=== PATIENT | male | born 1960 | race Caucasian/White ===

== ENCOUNTER 2023-12-05 14:26 | Inpatient (IN) | payer MEDICARE, BC, SELFPAY ==
[2023-12-04 12:36] VITALS: BP 128/57
[2023-12-04 13:21] LABS: COVID-19 Antigen Positive (Negative)
[2023-12-04 15:00] VITALS: BP 179/77
--- NOTE | 2023-12-04 15:21 | ED.GENMED ---
History of Present Illness
General
Chief Complaint: Fatigue
Source: patient
Exam Limitations: none
Time Seen by Provider: 12/04/23 14:53
Nursing documentation reviewed up to this point in time: agreed with
Travel History
Have you had any contact with someone who has COVID-19?: No
Do you have any symptoms of coronavirus? Fever > 100 degrees, chills, cough, shortness of breath, sore throat, loss of taste or smell, muscle aches, or headache?: Yes
Symptoms:: bodyaches
History of Present Illness
History of Present Illness:
Patient is a 63-year-old male with a history of CAD, CVA, hypopituitarism, gastric varices
Here for generalized fatigue, sore throat, cough, fatigue and weakness for the last 2 days. Patient did not take his temperature. He was unaware he had COVID-19 until coming in to the emergency department today. Patient is vaccinated. He says
that after a few times he coughed he brought up a little bit of blood-tinged emesis, it was not hemoptysis. Patient feels extremely weak currently. He has a little bit of shortness of breath but most of his pain is in his throat. He did not take
any Tylenol or ibuprofen. He says that sometimes Tylenol gives him problems. He cannot take NSAIDs because of his stomach
Past History
Past History
ED Past Medical History: CAD, CVA (TIA), HTN, Hypercholesterolemia, [place], Seizures (History of from Hypoglycemia), Hypothyroidism and Other (Sciatica, Cellulitis, Rectal bleeding, Bowel obstruction, Vertigo,)
ED Past Surgical History: Cardiac (Stents X 1) and Other (Partial removal of Pancreas)
Social History
Tobacco: 2nd hand smoke exposure
Alcohol: None
Personal: Single
Living: with family
Employment: Disabled
Family History
Family History: Other
Review of Systems
Review of Systems
Allergies reviewed?: Yes
All Other Systems: Not applicable
Phy Exam
Physical Exam
Physical Exam:
GENERAL: Alert, very fatigued, needed assistance sitting up in bed
EYE: pupils equal and reactive
NECK: Supple
ENT: b/l TM s clear, pharynx erythematous but no tonsillar hypertrophy or exudates
CARDIAC: Regular rate and rhythm, no edema
LUNGS: Occasional cough, no respiratory distress, some end expiratory wheezing bilaterally as well as mild rhonchi,
ABDOMEN: Soft, without focal tenderness, no r/g, no cvat, normal bowel sounds
NEUROLOGICAL: Alert and oriented, no focal neuro deficits but extremely weak
SKIN: Warm and dry, skin intact.
MUSCULOSKELETAL: No edema, well perfused.
PSYCH: Normal and appropriate interaction.
Course
Orders/Labs/Results
Orders:
Orders
12/04/23 12:39
Electrocardiogram (*1) Urgent
Reason for Study: Fatigue / Weakness
EKG- Treatment ONCE
12/04/23 12:55
COVID-19 Antigen Urgent
Source: Nasal Swab
Influenza A+B Rapid Molecular Urgent
SONIA Source: Nasal Swab
Specimen Description:
12/04/23 14:47
Complete Blood Count/With Diff Urgent
Comprehensive Metabolic Panel Urgent
12/04/23 15:44
0.9% Sodium Chloride 500 ml [Nss] 500 ml IV BOLUS
Acetaminophen [Tylenol] 650 mg PO NOW STA
12/04/23 15:46
Dexamethasone Sod Phosphate [Decadron] 10 mg IV NOW STA
CR Chest - 2 Views Urgent
Comment:
Reason For Exam: fever, covid
Abnormal Lab Results
12/04/23 12/04/23
12:55 14:47
RBC 3.97 L 10^6/uL
(4.70-6.10)
Hct 37.9 L %
(39.0-52.0)
MCV 95.5 H fL
(80.0-94.0)
MCH 34.0 H pg
(27.0-31.0)
RDW 11.4 L %
(11.5-14.5)
Absolute Neuts (auto) 7.0 H 10^3/uL
(1.4-6.5)
Absolute Lymphs (auto) 0.7 L 10^3/uL
(1.2-3.4)
Absolute Monos (auto) 0.7 H 10^3/uL
(0.1-0.6)
Neutrophils % 82.4 H %
(42.2-75.2)
Lymphocytes % 8.7 L %
(20.5-51.1)
Sodium 134 L mmol/L
(135-145)
BUN 22 H mg/dl
(9-20)
SARS-CoV-2 Antigen Positive A
(Negative)
12/04/23 14:47
12/04/23 14:47
Vital Signs
Initial and Last Documented VS:
Initial Vital Signs
Temp Pulse Resp BP Pulse Ox
98.0 F 62 16 128/57 97
12/04/23 12:36 12/04/23 12:36 12/04/23 12:36 12/04/23 12:36 12/04/23 12:36
Last Documented Vital Signs
Temp Pulse Resp BP Pulse Ox
98.0 F 78 18 189/71 97
12/04/23 12:36 12/04/23 16:15 12/04/23 16:15 12/04/23 16:00 12/04/23 12:36
MDM/Problems Addressed
Differential Diagnosis Includes:
COVID-19, influenza, dehydration, pneumonia
MDM/Problems Addressed:
63-year-old male coming from independent living, history of CAD, hypopituitarism, epilepsy, stroke, gastric varices presents for COVID symptoms. He has sore throat, cough, mild blood-tinged emesis after retching
Patient was found to be initially afebrile and normotensive, for me he is febrile 103.5 and very fatigued. He is nonfocal, needed assistance just lifting himself up in bed
Has some mild rhonchi and wheezing in his lungs but normal O2 sat not requiring oxygen support. Considered IV steroids however patient with his varices history is more high risk for GI bleeding.
Given his extreme fatigue, that he lives alone I do not feel that it is safe to discharge him. Will admit
*Critical Care Note
Total Time (30-74mins, 75-104mins- exclusive of procedures): Not Applicable
ED Attending Note
-
Portions of this chart may have been created with voice recognition software.� Occasional wrong word or��sound alike� substitutions may have occurred due to the inherent limitations of voice recognition software.
Discharge Plan
Departure
Patient Disposition: Admit
Date of Disposition: 12/04/23
Time of Disposition: 16:24
Admit to: Med/Surg
Presentation/result/management discussed w/ accepting MD/DO: Hospitalist
Patient with high blood pressure during this ER visit?: No
Condition: Fair
Covid-19: Not Applicable
Discharge Problem:
COVID-19, Weakness
Prescriptions:
No Action
aspirin 81 MG tablet,chewable
81 mg PO DAILY@1200
levothyroxine 200 MCG tablet
200 mcg PO MOTUWETHFR
levothyroxine 200 MCG tablet
400 mcg PO SUSA
atenolol 25 MG tablet
25 mg PO HS
amlodipine 10 MG tablet
10 mg PO HS
hydrocortisone 10 MG tablet
20 mg PO DAILY
testosterone cypionate 200 MG/ML oil
0.25 ml IM Q2W
calcium carbonate-vitamin D3 [Oyster Shell Calcium-Vit D3] 500 MG tablet
1 tab PO BID@1400,2000
phenobarbital 64.8 MG tablet
129.6 mg PO HS
Patient Comments:
patient picked up on
clopidogrel 75 MG tablet
75 mg PO DAILY Qty: 30 5RF
nitroglycerin 0.4 MG tablet, sublingual
0.4 mg sublingual [id number] PRN (Reason: chest pain) Qty: 25 5RF
pantoprazole 40 MG tablet,delayed release (DR/EC)
40 mg PO DAILY
sodium chloride 1 GM tablet
0.5 tab PO BID
guar gum 1 PKT packet
1 tsp PO DAILY
furosemide 20 MG tablet
20 mg PO DAILY
folic acid-vit B6-vit B12 [Folbic] 1 EACH tablet
1 tab PO DAILY@1400
rosuvastatin 10 MG tablet
10 mg PO DAILY
carbamazepine [Tegretol XR] 200 MG tablet extended release 12 hr
400 mg PO BID
carbamazepine 100 MG capsule, ER multiphase 12 hr
100 mg PO BID
Referrals:
Jean Carlos Frazier MD [Family Provider] -
Interventions
Interventions:
*ED COVID-19 Vaccine History Last Done: 12/04/23 12:36
[2023-12-04 15:41] LABS: % Basophils 0.4 % (0-2); % Eosinophils 0.1 % (0-6); % Immature Granulocytes 0.4 % (0-0.5); % Lymphocytes 8.7 % (20.5-51.1); % Neutrophils 82.4 % (42.2-75.2); Absolute Lymphocytes 0.7 10^3/uL (1.2-3.4); Absolute Monocytes 0.7 10^3/uL (0.1-0.6); Hematocrit 37.9 % (39.0-52.0); Hemoglobin 13.5 g/dL (13.0-18.0); Mean Corp Hgb Conc. 35.6 g/dL (33.0-37.0); Mean Corpuscular Volume 95.5 fL (80.0-94.0); Mean Platelet Volume 9.4 fL (7.4-10.4); Nucleated Red Blood Cells % 0 % (-); Platelet Count 148 10^3/uL (130-400); Red Blood Cell Count 3.97 10^6/uL (4.70-6.10); Red Cell Dist. Width 11.4 % (11.5-14.5); White Blood Cell Count 8.5 10^3/uL (4.8-10.8)
[2023-12-04 16:00] VITALS: BP 189/71
[2023-12-04 16:09] LABS: ALT (SGPT) 33 U/L (0-50); AST (SGOT) 50 U/L (17-59); Albumin 4.3 g/dl (3.5-5.0); Alkaline Phosphatase 106 U/L (38-126); Blood Urea Nitrogen 22 mg/dl (9-20); Calcium 8.5 mg/dl (8.4-10.2); Carbon Dioxide 29 mmol/L (22-30); Chloride 102 mmol/L (98-107); Glucose 82 mg/dl (70-99); Potassium 4.3 mmol/L (3.5-5.1); Sodium 134 mmol/L (135-145); Total Bilirubin 0.7 mg/dl (0.2-1.3); Total Protein 7.3 g/dl (6.3-8.2); eGFR > 60.00
[2023-12-04] MEDS: TYLENOL 650 MG PO ×2 (16:16→23:20)
[2023-12-04] MEDS: NSS 500 IV (16:17)
--- NOTE | 2023-12-04 18:13 | HPS.HSE ---
Addendum entered and electronically signed by Nico Garcia MD 12/04/23 18:22:
Patient did have Fever of 103.5. Check blood cultures and continue IVF.
Original Note:
Family Physician
-
Family Physician: Jean Carlos Frazier
Chief Complaint
-
sore throat
History of Present Illness
63-year-old male with past medical history of CAD status post stent, CVA, hypopituitarism, gastric varices, hypertension, hypercholesterolemia, seizure secondary to hypoglycemia, hypothyroidism, sciatica, bowel obstruction, partial removal of
pancreas, presenting from [facility] with generalized fatigue, sore throat, cough and shortness of breath, fatigue and weakness for the past 2 days. A few times after he coughed he brought up a little blood-tinged sputum. His main complaint is he
has a severe sore throat and he has a lot of irritation of the throat when he tries to eat solids or liquids and it comes up after eating. This only started with his other symptoms. He denies food getting stuck in his throat. He denies any
vomiting. He denies any abdominal pain or diarrhea. He denies any fevers or chills. Denies any chest pain.
He did receive COVID vaccines
Denies smoking or alcohol.
Medical History
Past Medical History
Past Medical History: Reports Other ( CAD status post stent, CVA, hypopituitarism, gastric varices, hypertension, hypercholesterolemia, seizure secondary to hypoglycemia, hypothyroidism, sciatica, bowel obstruction, partial removal of pancreas,)
Past Surgical History: Reports None
Social History
Tobacco: Non-smoker
Alcohol: None
Drug: None
Family History
Family History: Not pertinent
Allergies / Home Medications
Allergies reflects when Allergies were last updated in [facility].
Home Medications with original date entered in [facility]
Allergy/Medication List:
Allergies
Allergy/AdvReac Type Severity Reaction Status Date / Time
acetaminophen Allergy hallucinati Verified 12/04/23 12:38
[From Tylenol PM] ons
amoxicillin [Amoxicillin] Allergy nightmares Verified 12/04/23 12:38
cephalexin monohydrate Allergy 'unspecified Verified 12/04/23 12:38
[From Keflex] side
effects'
cyclobenzaprine Allergy Unknown Verified 12/04/23 12:38
[Cyclobenzaprine]
diphenhydramine HCl Allergy hallucinati Verified 12/04/23 12:38
[From Tylenol PM] ons
erythromycin base Allergy 'does not Verified 12/04/23 12:38
[Erythromycin Base] mix with
tegretol'
metformin Allergy Unknown Verified 12/04/23 12:38
methylprednisolone Allergy dizziness? Verified 12/04/23 12:38
naproxen [From Aleve] Allergy Unknown Verified 12/04/23 12:38
sertraline Allergy Unknown Verified 12/04/23 12:38
Blwziwp-ZFC-ZpK Reductase Allergy Unknown Verified 12/04/23 12:38
Inhibitor
[Vgqdgnx-Rvb-Wez Reductase
Inhibitor]
Tetracyclines Allergy nightmares Verified 12/04/23 12:38
Home Medications
levothyroxine 200 mcg tablet 200 mcg PO DAILY Thyroid 02/19/15
amlodipine 10 mg tablet 10 mg PO HS Blood pressure 09/28/18
atenolol 25 mg tablet 25 mg PO HS Blood pressure 09/28/18
calcium carbonate 500 mg-vitamin D3 5 mcg (200 unit) tablet (Oyster Shell Calcium-Vitamin D3) 1 tab PO BID Supplement 03/18/20
hydrocortisone 10 mg tablet 20 mg PO DAILY ADRENAL INSUFFICIENCY 03/18/20
testosterone cypionate 200 mg/mL intramuscular oil 0.25 ml IM Q2W LOW TESTOSTERONE 03/18/20
phenobarbital 64.8 mg tablet 129.6 mg PO HS Seizures 10/03/20
clopidogrel 75 mg tablet 75 mg PO DAILY #30 tabs 10/05/20
nitroglycerin 0.4 mg sublingual tablet 0.4 mg sublingual [id number] PRN chest pain #25 tabs 10/05/20
pantoprazole 40 mg tablet,delayed release 40 mg PO DAILY Gastrointestinal issue 10/26/20
folic acid-vit B6-vit B12 2.5 mg-25 mg-2 mg tablet (Folbic) 1 tab PO DAILY Supplement 12/21/20
guar gum 1 tsp PO DAILY Supplement 12/21/20
carbamazepine 100 mg tablet,extended release,12 hr (Tegretol XR) 100 mg PO QPM 12/04/23
carbamazepine 100 mg tablet,extended release,12 hr (Tegretol XR) 200 mg PO DAILY 12/04/23
carbamazepine 400 mg tablet,extended release,12 hr (Tegretol XR) 400 mg PO BID@0800,1700 12/04/23
lisinopril 10 mg tablet 10 mg PO BID 12/04/23
rosuvastatin 40 mg tablet 40 mg PO DAILY 12/04/23
Review of Systems
-
History Source: Patient
A 12 point ROS was completed and negative except as noted: Yes
Constitutional: Reports No Symptoms
EENT: Reports No Symptoms
Respiratory: Reports See HPI
Cardiac: Reports No Symptoms
Abdomen/GI: Reports No Symptoms
: Reports No Symptoms
Musculoskeletal: Reports No Symptoms
Skin: Reports No Symptoms
Neurological: Reports No Symptoms
Endocrine: Reports No Symptoms
Hematologic/Lymphatic: Reports No Symptoms
Psych: Reports No Symptoms
Physical Exam
Vital Signs
Vital Signs
Temp Pulse Resp BP Pulse Ox
98.0 F 81 19 189/71 97
12/04/23 12:36 12/04/23 16:30 12/04/23 16:30 12/04/23 16:00 12/04/23 12:36
Physical Exam
General: Well Developed, Well Nourished and No Apparent Distress
HEENT: Other (erythematous throat )
Respiratory: Clear
Cardiac: S1/S2 and Regular Rhythm; No Murmur or Rub
GI: Soft, Non Tender, Non Distended and Normal Bowel Sounds; No Organomegaly
Rectal: Deferred by Provider
Musculoskeletal: No Clubbing, No Cyanosis and No Edema
Skin: No Rash
Neuro: Nonfocal/grossly intact
Laboratory Results
-
12/04/23 14:47
12/04/23 14:47
Laboratory Results
Total Bilirubin 0.7 mg/dl (0.2-1.3) 12/04/23 14:47
AST 50 U/L (17-59) 12/04/23 14:47
ALT 33 U/L (0-50) 12/04/23 14:47
Alkaline Phosphatase 106 U/L (38-126) 12/04/23 14:47
Data Reviewed
-
Lab Data: Labs Reviewed by me
Old Records: Reviewed
Impression/Plan
-
IMPRESSION:
PLAN:
# COVID infection, day 3 of symptoms
-not hypoxic, with slight hemoptysis secondary to cough
-COVID-positive, influenza negative
-Chest x-ray negative
-Tylenol
-Guaifenesin
-PT/OT
# Dysphagia secondary to pharyngitis from COVID
-Cepacol for sore throat
-Consider speech and swallow if no improvement
CAD status post stent
-Continue Plavix
History of CVA
-Continue Plavix, statin
Essential hypertension
-Continue amlodipine, atenolol, lisinopril
Hypercholesterolemia
Hypopituitarism
-Continue hydrocortisone
-Patient on testosterone injections
Hypothyroidism
-Continue levothyroxine
History of gastric varices
History of seizure secondary to hypoglycemia
-Continue carbamazepine, phenobarbital
Sciatica
History of bowel obstruction
Partial removal of pancreas
GERD
-Continue Protonix
Full code
DVT prophylaxis�heparin
Regular diet
--- NOTE | 2023-12-04 19:30 | PTCARENOTE ---
Received pt from ED. Pt ambulated to bed with x1 assist. Pt temp of 100.3, VSS. AAOx3, answered all admission questions. Reports no pain. See assessment. Pt has no complaints at this time. Resting comfortably with call somers within reach.
[2023-12-04 19:43] VITALS: BP 121/61; BMI 25.6
[2023-12-04] MEDS: HEPARIN 5000 UNITS SC (20:12)
[2023-12-04] MEDS: NSS 1000 IV (20:12)
[2023-12-04] MEDS: ZESTRIL 10 MG PO (20:13)
[2023-12-04] MEDS: OSCAL 500 + D 500 MG PO (20:13)
[2023-12-04] MEDS: MUCINEX 600 MG PO (20:13)
[2023-12-04] MEDS: TEGRETOL XR (EXTENDED RELEASE) 400 MG PO (21:03)
[2023-12-04] MEDS: LUMINAL 129.599999999999994 MG PO (22:13)
[2023-12-04] MEDS: NORVASC 10 MG PO (22:13)
[2023-12-04] MEDS: TENORMIN 25 MG PO (22:13)
[2023-12-04] MEDS: TEGRETOL XR (EXTENDED RELEASE) 100 MG PO (22:13)
[2023-12-04] MEDS: ANESTHETIC LOZENGE 1 LOZENGE PO (23:18)
[2023-12-04 23:28] VITALS: BP 152/69
[2023-12-04] MEDS: PEPCID 40 MG PO (23:47)
--- NOTE | 2023-12-04 23:57 | PTCARENOTE ---
Pt complaining of chest pain. Patient states feels like 'pressure' in center of chest that is not continuous. [employer] notified and came to bedside. Famotidine 40 mg PO ordered and given.
[2023-12-05] VITALS (24 sets, daily range): BP systolic 104–181; BP diastolic 44–139; BMI 23.6
--- NOTE | 2023-12-05 03:10 | W.PN.UPDATE ---
Update Note
Progress Note Update
Patient complained of chest pain to RN. Upon evaluation by RAFTER CUTTING MACHINE OPERATOR, patient stated pain is at mid epigastric area. Denies any pain at chest area, or shortness of breath at present. Famotidine given. Patient is Covid Positive.
At 0210, RN notified RAFTER CUTTING MACHINE OPERATOR, patient with high fever Temp of 102.6 temporal, 101.5 Axillary. Ordered Tylenol 1000mg PO once. RN stated Temp of 102.9 Oral, 104 Rectally one hour later, BP 109/44 dropped from 150's SBP, 71, 16 94% RA. Patient denies any
chest pain or SOB, reports Nausea, Vomiting and Diarrhea. IV Compazine given once, Cooling blanket ordered, will add procalcitonin, lactic acid to the labs to be done now. Ordered UA.
lab result noted: WBC 11.0, lactic acid 1.2, procalcitonin 0.75;
BP at 0600; 102.4, 138/50, HR 69, 95% Ra, 16 RR
corrected Ca low 5.4, Calcium gluconate given.
Will order stat chest Xray, UA pending, Blood culture pending, will transfer patient to IMU for possible Sepsis
Continue Vancomycin IV
ID Consult.
[2023-12-05] MEDS: TYLENOL 1000 MG PO (03:13)
[2023-12-05] MEDS: COMPAZINE 5 MG IV (04:38)
[2023-12-05 04:52] LABS: % Basophils 0.4 % (0-2); % Immature Granulocytes 0.4 % (0-0.5); % Monocytes 4.4 % (1.7-9.3); % Neutrophils 88.8 % (42.2-75.2); Absolute Lymphocytes 0.7 10^3/uL (1.2-3.4); Absolute Monocytes 0.5 10^3/uL (0.1-0.6); Absolute Neutrophils 9.8 10^3/uL (1.4-6.5); Hematocrit 35.7 % (39.0-52.0); Hemoglobin 12.7 g/dL (13.0-18.0); Mean Corp Hgb Conc. 35.6 g/dL (33.0-37.0); Mean Corpuscular Hgb 33.1 pg (27.0-31.0); Mean Platelet Volume 9.2 fL (7.4-10.4); Nucleated Red Blood Cells % 0 % (-); Platelet Count 144 10^3/uL (130-400); Red Blood Cell Count 3.84 10^6/uL (4.70-6.10); Red Cell Dist. Width 11.3 % (11.5-14.5)
--- NOTE | 2023-12-05 04:54 | PTCARENOTE ---
Patient having above 102 temperature since 2300. Gave PRN Tylenol at 2320. Recheck an hour later, 102.6 orally. Put ice packs under patients arms and in between legs. Recheck, 102.3 oral. 101.5 axillary. Notified BULLET ASSEMBLY PRESS OPERATOR, 1000 mg Tylenol ordered and
given. See MAR. Recheck of temperature still above 102 orally. 104.8 Rectal temperature. BULLET ASSEMBLY PRESS OPERATOR notified, cooling blanket ordered and administered. Patient has moist, occasional cough, nausea, vomiting, and had an episode of diarrhea. Compazine 5mg IV
ordered and given. See MAR. Patient states overall malaise and weakness. Patient sleeping with cooling blanket in place. Call somers within reach, safe environment maintained.
[2023-12-05 05:16] LABS: ALT (SGPT) 48 U/L (0-50); AST (SGOT) 86 U/L (17-59); Albumin 3.6 g/dl (3.5-5.0); Alkaline Phosphatase 104 U/L (38-126); Blood Urea Nitrogen 21 mg/dl (9-20); Carbon Dioxide 23 mmol/L (22-30); Chloride 106 mmol/L (98-107); Estimated Creatinine Clearance 60 ml/min; Glucose 85 mg/dl (70-99); Lactic Acid 1.2 mmol/L (0.7-2.0); Sodium 135 mmol/L (135-145); Total Protein 6.6 g/dl (6.3-8.2); eGFR > 60.00
[2023-12-05 05:23] LABS: Procalcitonin 0.75 ng/ml (0.0-0.25)
[2023-12-05] MEDS: SYNTHROID PO ×2 (05:54→06:06)
[2023-12-05] MEDS: CALCIUM GLUCONATE 100 IV (05:58)
[2023-12-05] MEDS: VANCOCIN 540 MG IV (06:59)
--- NOTE | 2023-12-05 07:52 | PHA.VAN.IN ---
Assessment
- Assessment
Renal Function: Appears similar to baseline (possibly slightly elevated)
AUC Dosing Plan
- Dosing Variables
Dosing Weight (kg): 70
Dosing CrCl (ml/min): 60
Vd coefficient (L/kg): 0.7
- Empiric Dosing
Initial / Loading Dose: 2000mg - 06:59
Maintenance Regimen: Vanc 1250mg Q24H starting 12/05 0600
Estimated AUC (mcg*h/mL): 490
Estimated Peak (mcg*h/mL): 35.1
Estimated Trough (mcg/ml): 10.4
Estimated Half Life (H): 12.8
- Monitoring
No levels ordered at this time: follow renal function - may require dose adjustment
Pharmacokinetics Vancomycin I
- -
Patient Age: 63
Patient Sex: Male
Vancomycin Day #: 1
Indication: Pulmonary/Respiratory
Requesting Provider: Kennedy Fitzgerald
Pertinent Antimicrobial Allergies:
amoxicillin - nightmares
cephalexin - 'unspecified side effects'
tetracyclines - nightmares
Height / Weight:
Height 5 ft 5 in
Actual Weight 69.763 kg
- Vital Signs / Lab Results
Temp Pulse Resp BP Pulse Ox
102.3 F H 69 16 138/50 95
12/05/23 07:00 12/05/23 05:52 12/05/23 05:52 12/05/23 05:52 12/05/23 05:52
Lab Results - Hematology
12/04/23 12/05/23
14:47 04:38
WBC 8.5 11.0 H
Lab Results - Chemistry
12/04/23 12/05/23
14:47 04:38
BUN 22 H 21 H
Creatinine 1.1 1.1
Estimated Creat Clear 60
Albumin 4.3 3.6
02/29/24
04:38
Lactic Acid 1.2
Microbiology Results
12/04/23 12:55 Influenza Types A & B (KATTY) - Final
Nasal Swab Negative for Influenza A & B, NAAT
Negative results must be combined with clinical observations
and patient history.
Nucleic Acid Amplification test (NAAT)performed on the
[employer] platform.
--- NOTE | 2023-12-05 08:00 | PTCARENOTE ---
Assumed care of patient. Pt rec'd on 2L N/C...sats 94%. A&OX3...appears tired. HO-CHUNK. Able to STONER's. Tremors vs rigors noted. On cooling blanket...see intervention. Able to take po meds w/o issue. Coughing and deep breathing encouraged. VS
documented. Call somers within reach. Will continue to monitor closely.
--- NOTE | 2023-12-05 08:52 | PTOTSP ---
Pt transferred to ICU. Orders not continued upon transfer. New orders needed for PT/OT eval.
[2023-12-05] MEDS: NSS 1000 IV ×2 (08:58→18:24)
[2023-12-05] MEDS: METAMUCIL, KONSYL PO (08:59)
[2023-12-05] MEDS: TEGRETOL XR (EXTENDED RELEASE) 200 MG PO (09:01)
[2023-12-05] MEDS: CRESTOR 40 MG PO (09:02)
[2023-12-05] MEDS: PROTONIX 40 MG PO (09:02)
[2023-12-05] MEDS: MUCINEX 600 MG PO ×2 (09:02→20:35)
[2023-12-05] MEDS: PLAVIX 75 MG PO (09:02)
[2023-12-05] MEDS: ZESTRIL 10 MG PO ×2 (09:02→20:35)
[2023-12-05] MEDS: OSCAL 500 + D 500 MG PO ×2 (09:02→20:35)
[2023-12-05] MEDS: CORTEF 20 MG PO (09:02)
[2023-12-05] MEDS: HEPARIN 5000 UNITS SC ×2 (09:04→20:35)
[2023-12-05] MEDS: FOLTX 1 TABLET PO (09:08)
[2023-12-05] MEDS: TEGRETOL XR (EXTENDED RELEASE) 400 MG PO ×2 (09:17→17:10)
[2023-12-05] MEDS: SOLU-CORTEF IV ×2 (09:47→17:10)
--- NOTE | 2023-12-05 10:33 | CON.ID ---
Consultation
-
Date/Time Consultation Requested: 12/05/2023 05:31
Date/Time Consultation Performed: 12/05/2023 09:22
Requesting Provider: PATTY Ross
Performing Provider: Dr. Cope
Reason for Consultation: COVID 19; fever
Chief Complaint / Past History
History of Present Illness
Gaurav Sharif is a 63-year-old male being evaluated for COVID-19 and antimicrobial management. History is obtained from chart review, along with patient interview. The patient resides at [facility], and reported approximately 2 days of cough,
generalized fatigue and pharyngitis. He presented yesterday afternoon to the hospital secondary to symptomatology, and here he was diagnosed with COVID-19. Late last evening he began to have fevers up to 104.8 degrees (rectal). He reports that he
has significant pharyngitis. He denies any significant shortness of breath prior to admission, but has developed some mild shortness of breath here. He denies any rigors.
He reports occasional chest pain secondary to a slight cough. He also reports some generalized myalgias. He denies any sputum production.
He reports that he has been vaccinated, with his most recent vaccine being given in August 2023.
Past History
Additional Past Medical History:
CAD; Hx CO
CVA/TIA
HTN
Dyslipidemia
Hypothyroid
Sciatica
Vertigo
Adrenal insufficiency
Seizure disorder
Additional Past Surgical History:
PCTA with stenting
Partial pancreatectomy
Allergy History:
acetaminophen [From Tylenol PM] Allergy (Verified 12/04/23 12:38)
hallucinations
amoxicillin [Amoxicillin] Allergy (Verified 12/04/23 12:38)
nightmares
cephalexin monohydrate [From Keflex] Allergy (Verified 12/04/23 12:38)
'unspecified side effects'
cyclobenzaprine [Cyclobenzaprine] Allergy (Verified 12/04/23 12:38)
Unknown
diphenhydramine HCl [From Tylenol PM] Allergy (Verified 12/04/23 12:38)
hallucinations
erythromycin base [Erythromycin Base] Allergy (Verified 12/04/23 12:38)
'does not mix with tegretol'
metformin Allergy (Verified 12/04/23 12:38)
Unknown
methylprednisolone Allergy (Verified 12/04/23 12:38)
dizziness?
naproxen [From Aleve] Allergy (Verified 12/04/23 12:38)
Unknown
sertraline Allergy (Verified 12/04/23 12:38)
Unknown
Hfplxsz-XWG-WyI Reductase Inhibitor [Ruajdae-Pcd-Cjv Reductase Inhibitor] Allergy (Verified 12/04/23 12:38)
Unknown
Tetracyclines Allergy (Verified 12/04/23 12:38)
nightmares
Medications Reviewed: Yes
Current Antibiotics:
Levofloxacin 750 mg IV every 24 hours
Vancomycin (dosed per pharmacy)
Social History
Tobacco: Other (Secondhand smoke exposure)
Alcohol: None
Drug: None
Personal: Single
Living: Alone
Employment: Not Employed
Family History
Family History: Not Pertinent
Review of Systems
Vital Signs
Temp Pulse Resp BP Pulse Ox
101.6 F H 73 16 133/61 95
12/05/23 08:00 12/05/23 09:02 12/05/23 05:52 12/05/23 09:02 12/05/23 05:52
Physical Exam
Physical Exam
Constitutional: No Acute Distress, Comfortable and Non-toxic
Eyes: Pupils Equal, Pupils Round, No Conjunctival Hemorrhage and Sclera Anicteric
Oral: No Thrush and No Ulcers
Cardiovascular: Regular Rate and S1/S2; Negative S3/S4
Pulmonary: Clear; Negative Wheezes, Rales or Rhonchi
Gastrointestinal: Soft, Non Tender, Non Distended and Normal Bowel Sounds
Genito-Urinary: Negative Suprapubic Tenderness or CVA Tenderness
Extremities: Negative Edema, Cyanosis or Erythema
Musculoskeletal: Negative Joint Swelling, Joint Effusion or Spinal Tenderness
Skin: Warm and Dry; Negative Rash or Jaundice
Neurological: Awake and Alert
Psychological: Calm
.
Lab / Diagnostic Study Results
12/05/23 04:38
12/05/23 04:38
Abs Immat Gran (auto) 0.0 10^3/uL (0-0.05) 12/05/23 04:38
Absolute Neuts (auto) 9.8 10^3/uL (1.4-6.5) H 12/05/23 04:38
Absolute Lymphs (auto) 0.7 10^3/uL (1.2-3.4) L 12/05/23 04:38
Absolute Monos (auto) 0.5 10^3/uL (0.1-0.6) 12/05/23 04:38
Absolute Basos (auto) 0.0 10^3/uL (0-0.2) 12/05/23 04:38
Immature Gran % 0.4 % (0-0.5) 12/05/23 04:38
Neutrophils % 88.8 % (42.2-75.2) H 12/05/23 04:38
Lymphocytes % 6.0 % (20.5-51.1) L 12/05/23 04:38
Monocytes % 4.4 % (1.7-9.3) 12/05/23 04:38
Eosinophils % 0.0 % (0-6) 12/05/23 04:38
Basophils % 0.4 % (0-2) 12/05/23 04:38
Lactic Acid 1.2 mmol/L (0.7-2.0) 12/05/23 04:38
Procalcitonin 0.75 ng/ml (0.0-0.25) H 12/05/23 04:38
Microbiology Results
Micro:
12/04/23 21:53 Blood Culture - Pending
Blood/Venous
12/04/23 21:02 MRSA Screen - Pending
Nose
12/04/23 20:34 Blood Culture - Pending
Blood/Venous
12/04/23 12:55 Influenza Types A & B (KATTY) - Final
Nasal Swab Negative for Influenza A & B, NAAT
Negative results must be combined with clinical observations
and patient history.
Nucleic Acid Amplification test (NAAT)performed on the
[employer] platform.
Imaging:
12/05/2023 CXR (portable): Heart is top normal size. Patchy opacity is seen in the right heart border, new compared to prior CXR obtained the day before. No large pleural effusion or pneumothorax. No radiographic evidence of free intraperitoneal
air. Please see full dictation for additional detail.
Assessment / Plan
COVID-19 positive
Fevers
Shortness of breath
CAD; Hx CO
CVA/TIA
HTN
Dyslipidemia
Hypothyroid
Sciatica
Vertigo
Adrenal insufficiency
Seizure disorder
Recommendations:
Discontinue further vancomycin and Levaquin for the time being. No evidence of a bacterial infection at this point.
Begin molnupiravir in the treatment of COVID-19.
Monitor white count and temperature curve. Continue with antipyretics as needed.
Follow-up pending cultures and reinitiate antibiotics if necessary.
Care Review
Plan reviewed with: Physician (Pulmonary/Critical Care)
[2023-12-05] MEDS: TYLENOL 650 MG PO ×2 (10:59→20:50)
[2023-12-05] MEDS: MOLNUPIRAVIR (EUA) 800 MG PO ×2 (11:00→20:50)
--- NOTE | 2023-12-05 11:30 | PTCARENOTE ---
Moist productive cough for thick white sputum...oral care done. +BAILEY. Desats to 88-90% while coughing. O2 increased to 6L N/C...sats increased to 98%. No void yet...bladder scanned for 280mls....will monitor. Lunch ordered. Call somers within
reach.
--- NOTE | 2023-12-05 12:57 | CM ---
Addendum entered by Lucho Kowalski 12/05/23 15:53:
Pt upgraded ti inpatient level of admission. IMM reviewed, placed in chart, pt has a copy.
Original Note:
CM following re: discharge planning.
Reviewed pt's chart, met with pt.
Pt is a 63 year old male, admitted with OBS status and primary dx of COVID+. OBS status has been explained to the pt, pt expressed understanding, HARDY letter signed, placed in chart, pt has a copy.
Pt reports he lives alone in an apartment garage of sister's house, no steps. Pt reports he ambulates with a walker, known to [facility] and was at [facility] in the past.
PT and OT will evaluate the pt to determine a level of care at discharge.
PCP: Jean Carlos Frazier
Pharmacy: [facility].
D/C plan: uncertain at this time. Awaiting for PT/OT evaluations and recommendations.
CM will follow with discharge plan updates as hospitalization progresses
--- NOTE | 2023-12-05 13:26 | PTCARENOTE ---
Able to ambulate to bathroom w/ assist x 2. Unsteady gait noted. Supervision required. UA sent. Continent for moderate loose brown BM in bathroom.
[2023-12-05 14:07] LABS: Urine Albumin 1+ (Neg - Trace); Urine Bilirubin Negative (Negative); Urine Character Clear (Clear); Urine Color Yellow; Urine Glucose Negative (Negative); Urine Ketone 3+ (Negative); Urine Leukocyte Negative (Negative); Urine Nitrite Negative (Negative); Urine Occult Blood 3+ (Negative); Urine Urobilinogen Negative (Neg - 1+)
--- NOTE | 2023-12-05 14:28 | W.PN.HOSP.TC ---
Today's Communication/Plan
-
All discussed with the patient
Assessment
Assessment / Plan
Assessment / Plan
Physical exam:
General: Sleepy, arousable, speaks in low tone of voice, not in distress and holds appropriate conversation.
HEENT: No active discharge, ecchymosis or bruising, moist lips, tongue and mucous membrane.
Eyes: No discharge or red conjunctiva, no nystagmus, pupils are reactive and equal
Neck:Supple, no JVD no bruit no goiter.
Respiratory: Normal AP contour and diameter, normal chest wall movement, normal respiratory effort, no respiratory distress,
Lungs: Good air entry bilaterally, no wheezing or rhonchi, no rales or crackles
Heart: S1, S2 regular, normal rate, no added sound.
Gastrointestinal: Positive bowel sounds, soft, nontender, no guarding or rigidity or organomegaly
Musculoskeletal: , no chest wall abnormality or tenderness. All joints and extremities have good range of motion, no muscle tenderness or any joint swelling or tenderness.
Extremities: No pitting edema, good peripheral pulses, good range of motion
Skin: Warm and dry, no ulceration, normal color.
Neurological: Sleepy, arousable, speech clear and comprehensive, good muscle tone,
PLAN:
# COVID infection,
-not hypoxic, with slight hemoptysis secondary to cough
-COVID-positive, influenza negative
-Chest x-ray negative initially but on repeat today is positive, discussed with radiology.
-Started on Vanco and Levaquin but look like seen by infectious disease they recommended no need of antibiotic even procalcitonin is 0.75.
Closely monitor may reinstate antibiotic if needed.
-Patient takes hydrocortisone 20 mg daily at home we will increase it to stress or dose of 50 mg IV every 8 hours for the next couple of days and reassess accordingly.
-Tylenol
-Guaifenesin
-PT/OT
-Discussed with family independence case manager can be updated and patient
# Dysphagia secondary to pharyngitis from COVID
-Cepacol for sore throat
-Feels some improvement we will closely monitor.
CAD status post stent
-Continue Plavix
History of CVA
-Continue Plavix, statin
Essential hypertension
-Continue amlodipine, atenolol, lisinopril
Hypercholesterolemia
Hypopituitarism
-Continue hydrocortisone
-Patient on testosterone injections
Hypothyroidism
-Continue levothyroxine
History of gastric varices
History of seizure secondary to hypoglycemia
-Continue carbamazepine, phenobarbital
Sciatica
History of bowel obstruction
Partial removal of pancreas
GERD
-Continue Protonix
Full code
DVT prophylaxis�heparin
Regular diet
Anticipated Discharge: > 48 hours
Subjective/Interval History
-
Date of Service: December 05, 2023
Seen and examined, sleepy arousable, , Cough, afebrile, feeling fatigue complaining of dry cough, denies any fever or chill, admit did not sleep well, chest x-ray showed change compared to yesterday, started on Vanco and Levaquin metabolic
infectious disease discontinued antibiotics.
Objective Data
-
Labs:
Laboratory Results
12/05/23
04:38
WBC 11.0 H
Hgb 12.7 L
Hct 35.7 L
Plt Count 144
Sodium 135
Potassium 4.0
Chloride 106
Carbon Dioxide 23
BUN 21 H
Creatinine 1.1
Glucose 85
Calcium 8.0 L
Total Bilirubin 1.0
AST 86 H
ALT 48
Alkaline Phosphatase 104
Vital Signs:
Vital Signs
Temp Pulse Resp BP Pulse Ox
100.3 F 65 17 116/61 99
12/05/23 12:00 12/05/23 13:00 12/05/23 13:00 12/05/23 12:00 12/05/23 13:00
I&O
12/04/23 12/05/23 12/06/23
07:59 07:59 07:59
Intake Total 420 / 420 660 / 660
Output Total 475 / 475 100 / 100
Balance -55 / -55 560 / 560
Review of Systems
-
All other systems: Reviewed and negative
[2023-12-05 14:52] LABS: Urine Mucus Few
[2023-12-05 14:53] LABS: Urine Amorphous Seen; Urine Bacteria Many (Negative)
[2023-12-05 14:54] LABS: Urine Red Blood Cell 0-2 /HPF (0-2); Urine Squamous Cell 0-2 /LPF (Few)
[2023-12-05] MEDS: TEGRETOL XR (EXTENDED RELEASE) 100 MG PO (17:10)
[2023-12-05] MEDS: TESSALON PERLES 200 MG PO (20:50)
--- NOTE | 2023-12-05 21:00 | PTCARENOTE ---
assume care from AM RN. VSS, febrile temp of 101.1 F. pt given Tylenol. Aox3, slow speech and anxious at times. Gen weakness. NSR w/ BBB int he monitor. Lung sounds are crackle at the bases and diminished throughout. Productive cough. dyspneic w/
exertion. 4L NC, SaO2 97%. Abd round and obese. Some loose stool. Pura urine. Call somers within reach and pt appears comfortable in bed. Will cont w/ tx plan.
[2023-12-05] MEDS: NORVASC 10 MG PO (21:25)
[2023-12-05] MEDS: TENORMIN 25 MG PO (21:25)
[2023-12-05] MEDS: LUMINAL 129.599999999999994 MG PO (21:25)
[2023-12-05] MEDS: SOLU-CORTEF 50 MG IV (23:40)
[2023-12-06] VITALS (11 sets, daily range): BP systolic 99–154; BP diastolic 47–68; PULSE 68–70; O2SAT 96–97; BMI 26.1
[2023-12-06] MEDS: SYNTHROID 200 MCG PO (05:50)
[2023-12-06] MEDS: SOLU-CORTEF 50 MG IV ×3 (08:12→23:04)
[2023-12-06] MEDS: MOLNUPIRAVIR (EUA) 800 MG PO ×2 (08:13→21:04)
[2023-12-06] MEDS: TEGRETOL XR (EXTENDED RELEASE) 200 MG PO (08:14)
[2023-12-06] MEDS: METAMUCIL, KONSYL 1 PACKET PO (08:14)
[2023-12-06] MEDS: HEPARIN 5000 UNITS SC ×2 (08:14→20:45)
[2023-12-06] MEDS: PLAVIX 75 MG PO (08:15)
[2023-12-06] MEDS: PROTONIX 40 MG PO (08:15)
[2023-12-06] MEDS: TEGRETOL XR (EXTENDED RELEASE) 400 MG PO ×2 (08:15→16:50)
[2023-12-06] MEDS: TESSALON PERLES 200 MG PO ×2 (08:15→23:04)
[2023-12-06] MEDS: MUCINEX 600 MG PO ×2 (08:16→20:48)
[2023-12-06] MEDS: CRESTOR 40 MG PO (08:16)
[2023-12-06] MEDS: OSCAL 500 + D 500 MG PO ×2 (08:16→20:46)
[2023-12-06] MEDS: FOLTX 1 TABLET PO (08:21)
--- NOTE | 2023-12-06 08:24 | PTOTSP ---
Pt transferred to ICU yesterday. PT/OT Orders were not continued upon transfer. Will need new orders for PT/OT when stable to begin activity.
[2023-12-06] MEDS: ZESTRIL 10 MG PO ×2 (08:45→20:46)
--- NOTE | 2023-12-06 08:49 | PTCARENOTE ---
0700 patient received in bed . AAO x3; slow speech, left side weakness residual from previous CVA. on 4L via nasal canula POX 100%. SR 66. BP via left upper arm 149/68 MAP 93. RR 18; POX 92% RA . Non productive dry cough, No SOB. Abdomen soft non
tender . Ursin urinal clear yellow urine . AT time incontinent of urine. Peripheral line Left and RT flushed capped patient denies SOB denies chest pain. cooling blanket removed from bed. temp oral 98.0. transfer with one person assist to recliner
chair . call somres with reach. All med adm per order. No swallowing issues noted . IS encouraged.
--- NOTE | 2023-12-06 12:12 | PTCARENOTE ---
pt in bed VSS . Denies pain. on RA downgraded to [facility] [place]. Will be transfer to room 427 via bed . Report given prior to transfer
--- NOTE | 2023-12-06 12:16 | PTCARENOTE ---
Emergency contact : Johann Brown notified regarding planned transfer to room 425
--- NOTE | 2023-12-06 12:49 | PTCARENOTE ---
AT 12:49 patient transfer via bed hearing aids meds and glasses transfer with patient
--- NOTE | 2023-12-06 13:02 | W.PN.ID1 ---
Date of Service
Date of Service: December 06, 2023
Today's Communication
Continue molnupiravir x 5d
Assessment / Plan
COVID-19 positive
Fevers
Shortness of breath
CAD; Hx [place]
CVA/TIA
HTN
Dyslipidemia
Hypothyroid
Sciatica
Vertigo
Adrenal insufficiency
Seizure disorder
Recommendations:
Fever trending down
Bcx's neg to date.
Continue molnupiravir x 5d in the treatment of COVID-19.
Monitor white count and temperature curve. Continue with antipyretics as needed.
Chief Complaint
-: Other ( COVID)
Subjective / Review of Systems
Still feels weak. + dry cough.
Vital Signs / Physical Exam
Vital Signs
Vital Signs
Temp Pulse Resp BP Pulse Ox
98.2 F 68 16 154/67 96
12/06/23 12:53 12/06/23 12:53 12/06/23 12:53 12/06/23 12:53 12/06/23 12:53
Physical Exam
Constitutional: No Acute Distress
Cardiovascular: Regular Rate and S1/S2
Pulmonary: Clear
Gastrointestinal: Soft, Non Tender, Non Distended and Normal Bowel Sounds
Genito-Urinary: CVA Tenderness
Extremities: Negative Edema
Neurological: Awake and Alert
Objective Data
Lab Data
Lab Results
12/05/23 04:38
12/05/23 04:38
Estimated Creat Clear 60 ml/min 12/05/23 04:38
Lactic Acid 1.2 mmol/L (0.7-2.0) 12/05/23 04:38
Total Bilirubin 1.0 mg/dl (0.2-1.3) 12/05/23 04:38
AST 86 U/L (17-59) H 12/05/23 04:38
ALT 48 U/L (0-50) 12/05/23 04:38
Alkaline Phosphatase 104 U/L (38-126) 12/05/23 04:38
Most recent labs reviewed.
Micro Results:
12/05/23 13:25 Urine Culture - Final
Urine NO GROWTH
12/04/23 21:02 MRSA Screen - Final
Nose No Methicillin Resistant Staphylococcus aureus isolated.
12/04/23 21:53 Blood Culture - Preliminary
Blood/Venous No Growth in 24 hours- Final report to follow
12/04/23 20:34 Blood Culture - Preliminary
Blood/Venous No Growth in 24 hours- Final report to follow
12/04/23 12:55 Influenza Types A & B (KATTY) - Final
Nasal Swab Negative for Influenza A & B, NAAT
Negative results must be combined with clinical observations
and patient history.
Nucleic Acid Amplification test (NAAT)performed on the
[employer] platform.
Imaging:
12/05/2023 CXR (portable): Heart is top normal size. Patchy opacity is seen in the right heart border, new compared to prior CXR obtained the day before. No large pleural effusion or pneumothorax. No radiographic evidence of free intraperitoneal
air. Please see full dictation for additional detail.
--- NOTE | 2023-12-06 13:52 | CM ---
CM following re: discharge planning.
Reviewed pt's chart. per Rounds meeting pt is downgraded from ICU level of care.
PT and OT evaluation are pending. . PT and OT will evaluate the pt to determine a level of care at discharge.
D/C plan: uncertain at this time. Awaiting for PT/OT evaluations and recommendations.
CM will follow with discharge plan updates as hospitalization progresses
--- NOTE | 2023-12-06 15:43 | W.PN.HOSP.TC ---
Today's Communication/Plan
-
Discussed with the patient and the nurse
Assessment / Plan
Assessment / Plan
Physical exam:
General: More awake and alert, speaks in low tone of voice, not in distress and holds appropriate conversation.
HEENT: No active discharge, ecchymosis or bruising, moist lips, tongue and mucous membrane.
Eyes: No discharge or red conjunctiva, no nystagmus, pupils are reactive and equal
Neck:Supple, no JVD no bruit no goiter.
Respiratory: Normal AP contour and diameter, normal chest wall movement, normal respiratory effort, no respiratory distress,
Lungs: Good air entry bilaterally, no wheezing or rhonchi, no rales or crackles
Heart: S1, S2 regular, normal rate, no added sound.
Gastrointestinal: Positive bowel sounds, soft, nontender, no guarding or rigidity or organomegaly
Musculoskeletal: , no chest wall abnormality or tenderness. All joints and extremities have good range of motion, no muscle tenderness or any joint swelling or tenderness.
Extremities: No pitting edema, good peripheral pulses, good range of motion
Skin: Warm and dry, no ulceration, normal color.
PLAN:
# COVID infection,
-not hypoxic, with slight hemoptysis secondary to cough
-COVID-positive, influenza negative
-Chest x-ray negative initially but on repeat today is positive, discussed with radiology.
-Started on Vanco and Levaquin but look like seen by infectious disease they recommended no need of antibiotic even procalcitonin is 0.75.
Continue stress dose of the steroid for now could be changed in the next day or 2
All automation consultant input appreciated
PT OT
Transfer to [facility]
Patient from the half-way.
Meeting with a day or 2 language assistant week allergic.
# Dysphagia secondary to pharyngitis from COVID
-Cepacol for sore throat
-Feels some improvement we will closely monitor.
CAD status post stent
-Continue Plavix
History of CVA
-Continue Plavix, statin
Essential hypertension
-Continue amlodipine, atenolol, lisinopril
Hypercholesterolemia
Hypopituitarism
-Continue hydrocortisone
-Patient on testosterone injections
Hypothyroidism
-Continue levothyroxine
History of gastric varices
History of seizure secondary to hypoglycemia
-Continue carbamazepine, phenobarbital
Sciatica
History of bowel obstruction
Partial removal of pancreas
GERD
-Continue Protonix
Full code
DVT prophylaxis�heparin
Regular diet
Anticipated Discharge: 24 - 48 hours
Subjective/Interval History
-
Date of Service: December 06, 2023
Seen and examined, awake more awake and alert, did not sleep well last night and had poor appetite, still coughing but better than before, no shortness of breath or fever or chill, off oxygen.
Objective Data
-
Vital Signs:
Vital Signs
Temp Pulse Resp BP Pulse Ox
98.4 F 70 16 147/65 96
12/06/23 14:55 12/06/23 14:55 12/06/23 14:55 12/06/23 14:55 12/06/23 14:55
I&O
12/05/23 12/06/23 12/07/23
07:59 07:59 07:59
Intake Total 420 / 420 2464 / 2704 240 / 240
Output Total 475 / 475 1075 / 1275 200 / 200
Balance -55 / -55 1389 / 1429 40 / 40
Review of Systems
-
All other systems: Reviewed and negative
[2023-12-06] MEDS: TEGRETOL XR (EXTENDED RELEASE) 100 MG PO (17:33)
[2023-12-06] MEDS: LUMINAL 129.599999999999994 MG PO (20:46)
[2023-12-06] MEDS: NORVASC 10 MG PO (20:47)
[2023-12-06] MEDS: TENORMIN 25 MG PO (20:51)
[2023-12-06] MEDS: FLUSH (NSS) 1 FLUSH IV (23:09)
[2023-12-06] MEDS: TYLENOL 650 MG PO (23:22)
[2023-12-06] MEDS: ANESTHETIC LOZENGE 1 LOZENGE PO (23:22)
[2023-12-07] MEDS: SYNTHROID 200 MCG PO (06:11)
[2023-12-07 07:25] VITALS: BP 162/57
[2023-12-07] MEDS: CRESTOR 40 MG PO (08:12)
[2023-12-07] MEDS: FOLTX 1 TABLET PO (08:12)
[2023-12-07] MEDS: MUCINEX 600 MG PO (08:12)
[2023-12-07] MEDS: TEGRETOL XR (EXTENDED RELEASE) 200 MG PO (08:12)
[2023-12-07] MEDS: METAMUCIL, KONSYL 1 PACKET PO (08:12)
[2023-12-07] MEDS: TEGRETOL XR (EXTENDED RELEASE) 400 MG PO ×2 (08:13→16:46)
[2023-12-07] MEDS: HEPARIN 5000 UNITS SC ×2 (08:13→19:59)
[2023-12-07] MEDS: PROTONIX 40 MG PO (08:13)
[2023-12-07] MEDS: OSCAL 500 + D 500 MG PO ×2 (08:13→20:00)
[2023-12-07] MEDS: MOLNUPIRAVIR (EUA) 800 MG PO ×2 (08:13→19:59)
[2023-12-07] MEDS: SOLU-CORTEF 50 MG IV ×2 (08:14→20:00)
[2023-12-07] MEDS: PLAVIX 75 MG PO (08:14)
[2023-12-07] MEDS: ZESTRIL 10 MG PO ×2 (08:14→20:02)
[2023-12-07 10:40] LABS: % Basophils 0.2 % (0-2); % Eosinophils 0.1 % (0-6); % Immature Granulocytes 0.6 % (0-0.5); % Lymphocytes 5.5 % (20.5-51.1); % Monocytes 3.4 % (1.7-9.3); % Neutrophils 90.2 % (42.2-75.2); Absolute Immature Granulocytes 0.1 10^3/uL (0-0.05); Absolute Lymphocytes 0.7 10^3/uL (1.2-3.4); Absolute Monocytes 0.5 10^3/uL (0.1-0.6); Absolute Neutrophils 12.1 10^3/uL (1.4-6.5); Hematocrit 33.7 % (39.0-52.0); Hemoglobin 12.4 g/dL (13.0-18.0); Mean Corp Hgb Conc. 36.8 g/dL (33.0-37.0); Mean Corpuscular Hgb 34.2 pg (27.0-31.0); Mean Corpuscular Volume 92.8 fL (80.0-94.0); Mean Platelet Volume 9.9 fL (7.4-10.4); Nucleated Red Blood Cells % 0 % (-); Platelet Count 149 10^3/uL (130-400); Red Blood Cell Count 3.63 10^6/uL (4.70-6.10); Red Cell Dist. Width 11.6 % (11.5-14.5); White Blood Cell Count 13.4 10^3/uL (4.8-10.8)
[2023-12-07 11:10] LABS: Blood Urea Nitrogen 34 mg/dl (9-20); Calcium 8.3 mg/dl (8.4-10.2); Carbon Dioxide 23 mmol/L (22-30); Chloride 105 mmol/L (98-107); Estimated Creatinine Clearance 73 ml/min; Glucose 103 mg/dl (70-99); Potassium 3.8 mmol/L (3.5-5.1); Sodium 138 mmol/L (135-145); eGFR > 60.00
--- NOTE | 2023-12-07 12:16 | W.PN.HOSP.TC ---
Today's Communication/Plan
-
Diet tolerance
CM for placement
monitor cough
Assessment / Plan
Assessment / Plan
# COVID pneumonia
-not hypoxic, with slight hemoptysis secondary to cough
-COVID-positive, influenza negative
-Chest x-ray Patchy opacity near the right heart border, new compared to yesterday's chest x-ray, suggestive of developing right lower lobe or right middle lobe pneumonia.
-Started on Vanco and Levaquin but look like seen by infectious disease they recommended no need of antibiotic even procalcitonin is 0.75.
-Continue stress dose of the steroid for now and can slowly be weaned off
-Continue with Molnupirvair
-anti-cough meds prn
# Dysphagia secondary to pharyngitis from COVID
-Cepacol for sore throat
-Feels some improvement we will closely monitor.
CAD status post stent
-Continue Plavix
History of CVA
-Continue Plavix, statin
Essential hypertension
-Continue amlodipine, atenolol, lisinopril elevated and start to waen off high dose steroids
Hypercholesterolemia
Hypopituitarism
-Continue hydrocortisone
-Patient on testosterone injections
Hypothyroidism
-Continue levothyroxine
History of gastric varices
History of seizure secondary to hypoglycemia
-Continue carbamazepine, phenobarbital
Sciatica
History of bowel obstruction
Partial removal of pancreas
GERD
-Continue Protonix
Full code
DVT prophylaxis�heparin
PT/OT -recs SNF. CM aware. Start dispo.
Anticipated Discharge: Within 24 hours
Subjective/Interval History
-
Date of Service: December 07, 2023
afebrile
remains on room air
states of cough
wants to shower
Objective Data
-
Labs:
Laboratory Results
12/07/23
10:23
WBC 13.4 H
Hgb 12.4 L
Hct 33.7 L
Plt Count 149
Sodium 138
Potassium 3.8
Chloride 105
Carbon Dioxide 23
BUN 34 H
Creatinine 0.9
Glucose 103 H
Calcium 8.3 L
Vital Signs:
Vital Signs
Temp Pulse Resp BP Pulse Ox
97.2 F 55 18 162/57 95
12/07/23 07:25 12/07/23 08:14 12/07/23 07:25 12/07/23 08:14 12/07/23 08:26
I&O
12/06/23 12/07/23 12/08/23
06:59 06:59 06:59
Intake Total 2464 / 2464 720 / 720
Output Total 1075 / 1075 500 / 500
Balance 1389 / 1389 220 / 220
Physical Exam
-
General: Well Developed and No Apparent Distress
HEENT: Normocephalic, Atraumatic and Moist Mucous Membranes
Respiratory: Clear to Auscultation
Cardiac: Regular Rhythm and S1/S2; Negative Murmur, Rub or Gallop
GI: Soft, Nontender, Nondistended and Normal Bowel Sounds; Negative Organomegaly
Rectal: Deferred by Provider
Musculoskeletal: No Clubbing, No Cyanosis and No Edema
Skin: Negative Rash
Neuro: Awake, Alert, Oriented, AO x 3 and Nonfocal/Grossly Intact
Psych: Calm
Data Reviewed
-
Total Time Spent with Patient (in minutes): 55
[2023-12-07 15:25] VITALS: BP 154/69
--- NOTE | 2023-12-07 15:58 | W.PN.ID1 ---
Date of Service
Date of Service: December 07, 2023
Today's Communication
Start levofloxacin for CAP.
Coninue molnupiravir.
Assessment / Plan
COVID-19 positive
CAP
Fevers - resolved
Shortness of breath
CAD; Hx SD
CVA/TIA
HTN
Dyslipidemia
Hypothyroid
Sciatica
Vertigo
Adrenal insufficiency
Seizure disorder
Recommendations:
Bcx's neg to date.
Continue molnupiravir x 5d in the treatment of COVID-19.
Still with significant cough on day 3 molnupiravir.
CXR: patchy right hilar opacity.
Send sputum for cx.
Start levofloxacin 750mg po qd x 5d for CAP.
Chief Complaint
-: Other ( COVID)
Subjective / Review of Systems
Still coughing. + blood-tinged mucous.
Vital Signs / Physical Exam
Vital Signs
Vital Signs
Temp Pulse Resp BP Pulse Ox
97.2 F 55 18 162/57 95
12/07/23 07:25 12/07/23 08:14 12/07/23 07:25 12/07/23 08:14 12/07/23 08:26
Physical Exam
Constitutional: No Acute Distress
Cardiovascular: Regular Rate and S1/S2
Pulmonary: Rhonchi and Other (coughing)
Gastrointestinal: Soft, Non Tender and Non Distended
Genito-Urinary: Negative CVA Tenderness
Neurological: AO x 3
Objective Data
Lab Data
Lab Results
12/07/23 10:23
12/07/23 10:23
Estimated Creat Clear 73 ml/min 12/07/23 10:23
Lactic Acid 1.2 mmol/L (0.7-2.0) 12/05/23 04:38
Total Bilirubin 1.0 mg/dl (0.2-1.3) 12/05/23 04:38
AST 86 U/L (17-59) H 12/05/23 04:38
ALT 48 U/L (0-50) 12/05/23 04:38
Alkaline Phosphatase 104 U/L (38-126) 12/05/23 04:38
Most recent labs reviewed.
Micro Results:
12/04/23 21:53 Blood Culture - Preliminary
Blood/Venous No Growth in 48 hours- Final report to follow
12/04/23 20:34 Blood Culture - Preliminary
Blood/Venous No Growth in 48 hours- Final report to follow
12/05/23 13:25 Urine Culture - Final
Urine NO GROWTH
12/04/23 21:02 MRSA Screen - Final
Nose No Methicillin Resistant Staphylococcus aureus isolated.
12/04/23 12:55 Influenza Types A & B (KATTY) - Final
Nasal Swab Negative for Influenza A & B, NAAT
Negative results must be combined with clinical observations
and patient history.
Nucleic Acid Amplification test (NAAT)performed on the
[employer] platform.
Imaging:
12/05/2023 CXR (portable): Heart is top normal size. Patchy opacity is seen in the right heart border, new compared to prior CXR obtained the day before. No large pleural effusion or pneumothorax. No radiographic evidence of free intraperitoneal
air. Please see full dictation for additional detail.
--- NOTE | 2023-12-07 16:07 | CM ---
Patient seen bedside.
PT/OT recommending skilled rehab.
Patient + covid 12/04/23.
Referrals placed to [facility] and [facility].
Patient prefers home with [facility].
Plan: skilled vs home.
will cont to follwo for d/c needs.
[2023-12-07] MEDS: ROBITUSSIN 200 MG PO ×2 (16:46→20:00)
[2023-12-07] MEDS: LEVAQUIN 750 MG PO (16:46)
[2023-12-07] MEDS: TEGRETOL XR (EXTENDED RELEASE) 100 MG PO (17:32)
[2023-12-07] MEDS: LUMINAL 129.599999999999994 MG PO (20:02)
[2023-12-07] MEDS: TENORMIN 25 MG PO (20:03)
[2023-12-07] MEDS: NORVASC 10 MG PO (20:03)
[2023-12-07] MEDS: ANESTHETIC LOZENGE 1 LOZENGE PO (20:05)
[2023-12-07] MEDS: TYLENOL 650 MG PO (20:05)
[2023-12-08 00:01] VITALS: BP 133/58
[2023-12-08] MEDS: SYNTHROID 200 MCG PO (05:39)
[2023-12-08] MEDS: TESSALON PERLES 200 MG PO ×2 (05:54→21:08)
[2023-12-08 07:25] VITALS: BP 146/67
[2023-12-08] MEDS: ROBITUSSIN 200 MG PO ×3 (09:53→21:08)
[2023-12-08] MEDS: TEGRETOL XR (EXTENDED RELEASE) 200 MG PO (09:53)
[2023-12-08] MEDS: CRESTOR 40 MG PO (09:54)
[2023-12-08] MEDS: METAMUCIL, KONSYL 1 PACKET PO (09:54)
[2023-12-08] MEDS: LEVAQUIN 750 MG PO (09:54)
[2023-12-08] MEDS: MOLNUPIRAVIR (EUA) 800 MG PO ×2 (09:54→20:01)
[2023-12-08] MEDS: PLAVIX 75 MG PO (09:54)
[2023-12-08] MEDS: OSCAL 500 + D 500 MG PO ×2 (09:55→20:01)
[2023-12-08] MEDS: SOLU-CORTEF 50 MG IV ×2 (09:55→20:00)
[2023-12-08] MEDS: PROTONIX 40 MG PO (09:55)
[2023-12-08] MEDS: FOLTX 1 TABLET PO (09:56)
[2023-12-08] MEDS: HEPARIN 5000 UNITS SC ×2 (09:56→20:01)
[2023-12-08] MEDS: TEGRETOL XR (EXTENDED RELEASE) 400 MG PO ×2 (09:57→16:38)
[2023-12-08] MEDS: ZESTRIL 10 MG PO ×2 (09:57→20:02)
[2023-12-08] MEDS: ANESTHETIC LOZENGE 1 LOZENGE PO (10:07)
--- NOTE | 2023-12-08 12:20 | W.PN.HOSP.TC ---
Today's Communication/Plan
-
cont abx
albuterol prn
start weaning down stress dose steroids
Ongoing dispo to SNF
Assessment / Plan
Assessment / Plan
# COVID pneumonia with suspected superimposed bacterial pneumonia
-not hypoxic, with slight hemoptysis secondary to cough. now only wtih dry cough
-COVID-positive, influenza negative
-Chest x-ray Patchy opacity near the right heart border, new compared to yesterday's chest x-ray, suggestive of developing right lower lobe or right middle lobe pneumonia.
-Started on Vanco and Levaquin initially was stopped but now back on levaquin-plan for 5d course
-Continue stress dose of the steroid for now and can slowly be weaned off
-Continue with Molnupirvair
-anti-cough meds prn
# Dysphagia secondary to pharyngitis from COVID
-Cepacol for sore throat
-Feels some improvement we will closely monitor.
-Tolerating diet
CAD status post stent
-Continue Plavix
History of CVA
-Continue Plavix, statin
Essential hypertension
-Continue amlodipine, atenolol, lisinopril elevated and start to waen off high dose steroids and stop IV dose in am if bp continue to remain stable
Hypercholesterolemia
Hypopituitarism
-Continue hydrocortisone
-Patient on testosterone injections
Hypothyroidism
-Continue levothyroxine
History of gastric varices
History of seizure secondary to hypoglycemia
-Continue carbamazepine, phenobarbital
Sciatica
History of bowel obstruction
Partial removal of pancreas
GERD
-Continue Protonix
Full code
DVT prophylaxis�heparin
PT/OT -recs SNF. CM aware. Start dispo.
Anticipated Discharge: Within 24 hours
Subjective/Interval History
-
Date of Service: December 08, 2023
states of dry cough
no more mild blood in sputum
afebrile
Objective Data
-
Vital Signs:
Vital Signs
Temp Pulse Resp BP Pulse Ox
100 F 59 20 146/67 92
12/08/23 07:25 12/08/23 07:25 12/08/23 07:25 12/08/23 07:25 12/08/23 07:25
I&O
12/07/23 12/08/23 12/09/23
06:59 06:59 06:59
Intake Total 720 / 720 1320 / 1320
Output Total 500 / 500 500 / 500
Balance 220 / 220 820 / 820
Physical Exam
-
General: Well Developed and No Apparent Distress
HEENT: Normocephalic, Atraumatic and Moist Mucous Membranes
Respiratory: Wheezes (mild exp wheezing )
Cardiac: Regular Rhythm and S1/S2; Negative Murmur, Rub or Gallop
GI: Soft, Nontender, Nondistended and Normal Bowel Sounds; Negative Organomegaly
Rectal: Deferred by Provider
Musculoskeletal: No Clubbing, No Cyanosis and No Edema
Skin: Negative Rash
Neuro: Awake, Alert, Oriented, AO x 3 and Nonfocal/Grossly Intact
Psych: Calm
[2023-12-08] MEDS: ProAIR HFA INHALER 2 PUFF INH ×3 (13:22→21:19)
[2023-12-08 15:25] VITALS: BP 148/63
--- NOTE | 2023-12-08 15:54 | W.PN.ID1 ---
Date of Service
Date of Service: December 08, 2023
Today's Communication
Continue levofloxacin and molnupiravir.
Assessment / Plan
COVID-19 positive
CAP
Fevers - resolved
Cough
CAD; Hx [place]
CVA/TIA
HTN
Dyslipidemia
Hypothyroid
Sciatica
Vertigo
Adrenal insufficiency
Seizure disorder
Recommendations:
Bcx's neg to date.
Continue molnupiravir (dose 7 of 10) in the treatment of COVID-19.
Continue levofloxacin 750mg po qd (d2) x 5d for CAP.
Pt unable to produce sputum for cx.
Ordered benzonatate qhs for cough.
Trend wbc.
Chief Complaint
-: Pneumonia and Other ( COVID)
Subjective / Review of Systems
Unable to sleep due to cough.
Cough is now dry.
Appetite is poor.
Vital Signs / Physical Exam
Vital Signs
Vital Signs
Temp Pulse Resp BP Pulse Ox
100 F 68 20 146/67 93
12/08/23 07:25 12/08/23 15:30 12/08/23 15:30 12/08/23 07:25 12/08/23 15:30
Physical Exam
Constitutional: No Acute Distress
Cardiovascular: Regular Rate and S1/S2
Pulmonary: Coarse (crackles left base)
Gastrointestinal: Soft, Non Tender and Non Distended
Extremities: Negative Edema
Neurological: AO x 3
Objective Data
Lab Data
Lab Results
12/07/23 10:23
12/07/23 10:23
Estimated Creat Clear 73 ml/min 12/07/23 10:23
Lactic Acid 1.2 mmol/L (0.7-2.0) 12/05/23 04:38
Total Bilirubin 1.0 mg/dl (0.2-1.3) 12/05/23 04:38
AST 86 U/L (17-59) H 12/05/23 04:38
ALT 48 U/L (0-50) 12/05/23 04:38
Alkaline Phosphatase 104 U/L (38-126) 12/05/23 04:38
Most recent labs reviewed.
Micro Results:
12/04/23 21:53 Blood Culture - Preliminary
Blood/Venous No Growth in 72 hours- Final report to follow
12/04/23 20:34 Blood Culture - Preliminary
Blood/Venous No Growth in 72 hours- Final report to follow
12/05/23 13:25 Urine Culture - Final
Urine NO GROWTH
12/04/23 21:02 MRSA Screen - Final
Nose No Methicillin Resistant Staphylococcus aureus isolated.
12/04/23 12:55 Influenza Types A & B (KATTY) - Final
Nasal Swab Negative for Influenza A & B, NAAT
Negative results must be combined with clinical observations
and patient history.
Nucleic Acid Amplification test (NAAT)performed on the
[employer] platform.
Imaging:
12/05/2023 CXR (portable): Heart is top normal size. Patchy opacity is seen in the right heart border, new compared to prior CXR obtained the day before. No large pleural effusion or pneumothorax. No radiographic evidence of free intraperitoneal
air. Please see full dictation for additional detail.
[2023-12-08] MEDS: TEGRETOL XR (EXTENDED RELEASE) 100 MG PO (17:25)
[2023-12-08 20:00] VITALS: BP 127/67
[2023-12-08] MEDS: TENORMIN 25 MG PO (21:08)
[2023-12-08] MEDS: LUMINAL 129.599999999999994 MG PO (21:08)
[2023-12-08] MEDS: NORVASC 10 MG PO (21:08)
[2023-12-08] MEDS: TYLENOL 650 MG PO (22:50)
[2023-12-08 23:24] VITALS: BP 137/63
[2023-12-09] MEDS: SYNTHROID 200 MCG PO (06:08)
[2023-12-09] MEDS: ProAIR HFA INHALER 2 PUFF INH ×4 (07:14→19:51)
[2023-12-09 08:00] VITALS: BP 150/69
[2023-12-09 08:56] LABS: % Basophils 0.2 % (0-2); % Eosinophils 0.8 % (0-6); % Immature Granulocytes 1.1 % (0-0.5); % Lymphocytes 14.4 % (20.5-51.1); % Monocytes 9.6 % (1.7-9.3); % Neutrophils 73.9 % (42.2-75.2); Absolute Eosinophils 0.1 10^3/uL (0-0.7); Absolute Immature Granulocytes 0.1 10^3/uL (0-0.05); Absolute Lymphocytes 1.2 10^3/uL (1.2-3.4); Absolute Monocytes 0.8 10^3/uL (0.1-0.6); Absolute Neutrophils 6.3 10^3/uL (1.4-6.5); Hematocrit 31.3 % (39.0-52.0); Hemoglobin 11.5 g/dL (13.0-18.0); Mean Corp Hgb Conc. 36.7 g/dL (33.0-37.0); Mean Corpuscular Hgb 33.7 pg (27.0-31.0); Mean Corpuscular Volume 91.8 fL (80.0-94.0); Mean Platelet Volume 10.1 fL (7.4-10.4); Nucleated Red Blood Cells % 0 % (-); Platelet Count 171 10^3/uL (130-400); Red Blood Cell Count 3.41 10^6/uL (4.70-6.10); Red Cell Dist. Width 11.2 % (11.5-14.5); White Blood Cell Count 8.5 10^3/uL (4.8-10.8)
[2023-12-09 09:02] LABS: Blood Urea Nitrogen 26 mg/dl (9-20); Calcium 7.5 mg/dl (8.4-10.2); Carbon Dioxide 26 mmol/L (22-30); Chloride 105 mmol/L (98-107); Estimated Creatinine Clearance 73 ml/min; Glucose 85 mg/dl (70-99); Potassium 3.5 mmol/L (3.5-5.1); Sodium 135 mmol/L (135-145); eGFR > 60.00
[2023-12-09] MEDS: CRESTOR 40 MG PO (09:03)
[2023-12-09] MEDS: METAMUCIL, KONSYL 1 PACKET PO (09:03)
[2023-12-09] MEDS: ROBITUSSIN 200 MG PO ×3 (09:03→21:15)
[2023-12-09] MEDS: PROTONIX 40 MG PO (09:03)
[2023-12-09] MEDS: TEGRETOL XR (EXTENDED RELEASE) 200 MG PO (09:03)
[2023-12-09] MEDS: TEGRETOL XR (EXTENDED RELEASE) 400 MG PO ×2 (09:03→17:44)
[2023-12-09] MEDS: LEVAQUIN 750 MG PO (09:04)
[2023-12-09] MEDS: PLAVIX 75 MG PO (09:04)
[2023-12-09] MEDS: FOLTX 1 TABLET PO (09:04)
[2023-12-09] MEDS: OSCAL 500 + D 500 MG PO ×2 (09:04→19:33)
[2023-12-09] MEDS: ZESTRIL 10 MG PO ×2 (09:04→19:33)
[2023-12-09] MEDS: HEPARIN 5000 UNITS SC ×2 (09:06→19:33)
[2023-12-09] MEDS: SOLU-CORTEF 50 MG IV (09:08)
[2023-12-09] MEDS: MOLNUPIRAVIR (EUA) 800 MG PO ×2 (09:10→21:11)
--- NOTE | 2023-12-09 10:52 | W.PN.HOSP.TC ---
Today's Communication/Plan
-
2 more days of Levaquin
1 more day Molnipirvir
Need to get a better handle on his cough it is intractable wants to have a shower
Assessment / Plan
Assessment / Plan
# COVID pneumonia with suspected superimposed bacterial pneumonia
-not hypoxic, with slight hemoptysis secondary to cough. now only wtih dry cough
-COVID-positive, influenza negative
-Chest x-ray Patchy opacity near the right heart border, new compared to yesterday's chest x-ray, suggestive of developing right lower lobe or right middle lobe pneumonia.
-Started on Vanco and Levaquin initially was stopped but now back on levaquin-plan for 5d course (12/09)
-Continue stress dose of the steroid for now and can slowly be weaned off
-Continue with Molnupirvair ninth and 10th dose in the next 24 hours
-anti-cough meds prn/add Robitussin with codeine as Benzontate ineffective
# Dysphagia secondary to pharyngitis from COVID
-Cepacol for sore throat
-Feels some improvement we will closely monitor.
-Tolerating diet
CAD status post stent
-Continue Plavix
History of CVA
-Continue Plavix, statin
Essential hypertension
-Continue amlodipine, atenolol, lisinopril elevated and start to waen off high dose steroids and stop IV dose in am if bp continue to remain stable
Hypercholesterolemia
Hypopituitarism
-Continue hydrocortisone
-Patient on testosterone injections
Hypothyroidism
-Continue levothyroxine
History of gastric varices
History of seizure secondary to hypoglycemia
-Continue carbamazepine, phenobarbital
Sciatica
History of bowel obstruction
Partial removal of pancreas
GERD
-Continue Protonix
Full code
DVT prophylaxis�heparin
PT/OT -recs SNF. CM aware. Start dispo.
Anticipated Discharge: 24 - 48 hours
Subjective/Interval History
-
Date of Service: December 09, 2023
Coughing is constant and still relatively unproductive although it get in some purulent sounding description from his nares.
Objective Data
-
Labs:
Laboratory Results
12/09/23
07:54
WBC 8.5
Hgb 11.5 L
Hct 31.3 L
Plt Count 171
Sodium 135
Potassium 3.5
Chloride 105
Carbon Dioxide 26
BUN 26 H
Creatinine 0.9
Glucose 85
Calcium 7.5 L
Vital Signs:
Vital Signs
Temp Pulse Resp BP Pulse Ox
98.4 F 61 14 150/69 94
12/09/23 08:00 12/09/23 09:04 12/09/23 08:00 12/09/23 09:04 12/09/23 08:00
I&O
12/08/23 12/09/23 12/10/23
06:59 06:59 06:59
Intake Total 1320 / 1320 1620 / 1620
Output Total 500 / 500 400 / 400
Balance 820 / 820 1220 / 1220
Review of Systems
-
History Source: Patient
Constitutional: Reports Fever (Last fever was at around midnight)
Respiratory: Reports Cough (Intractable and persistent)
Physical Exam
-
General: Well Developed
HEENT: Normocephalic and PERRLA
Respiratory: Clear to Auscultation, Rales and Decreased Breath Sounds
Cardiac: Regular Rhythm
GI: Soft and Nontender
Neuro: Awake, Alert and Oriented
Psych: Calm
Data Reviewed
-
Total Time Spent with Patient (in minutes): 56
Labs: Labs Reviewed by me (White count 8.5 now trended to normal from 13.4 ,2 days ago/hemoglobin 11.5)
--- NOTE | 2023-12-09 13:15 | CM ---
Addendum entered by Virgie Hollingsworth 12/09/23 13:48:
technology adoption manager spoke with patient and he would prefer skilled facilities in [place] as it is close for family to visiting, options reviewed and patient has selected [facility], [facility] and [facility]. Referrals sent to these
facilities.
Original Note:
technology adoption manager reviewed patient's chart and referrals sent to [facility] and [facility], per admissions at [facility] they could accept patient after 12/15/23, [facility] also reviewing patient. Per physical therapy patient would still
benefit from skilled placement. Attempted to contact patient no answer by phone, patient is on isolation.
Plan; Skilled placement v's home with visiting nurses.
--- NOTE | 2023-12-09 13:54 | W.PN.ID1 ---
Date of Service
Date of Service: December 09, 2023
Today's Communication
Continue molnupiravir x 5d through 12/10/23 am in the treatment of COVID-19.
Continue levofloxacin 750mg po qd 5d through 12/11/23 for CAP.
Assessment / Plan
COVID-19 positive
-Up to date with COVID vaccine
CAP
Fevers - resolved
Cough
CAD; Hx [place]
CVA/TIA
HTN
Dyslipidemia
Hypothyroid
Sciatica
Vertigo
Adrenal insufficiency
Seizure disorder
Recommendations:
Leukocytosis resolved.
Bcx's neg to date.
Continue molnupiravir x 5d through 3 am in the treatment of COVID-19.
Continue levofloxacin 750mg po qd 5d through 12/11/23 for CAP.
Pt unable to produce sputum for cx.
Continue benzonatate qhs for cough.
Chief Complaint
-: Pneumonia and Other ( COVID)
Subjective / Review of Systems
Slept well last night.
Cough not as bad today.
Vital Signs / Physical Exam
Vital Signs
Vital Signs
Temp Pulse Resp BP Pulse Ox
98.4 F 65 18 150/69 95
12/09/23 08:00 12/09/23 11:28 12/09/23 11:28 12/09/23 09:04 12/09/23 11:28
Physical Exam
Constitutional: No Acute Distress and Comfortable
Pulmonary: Coarse (left base crackles)
Gastrointestinal: Soft, Non Tender and Non Distended
Extremities: Negative Edema
Neurological: AO x 3
Objective Data
Lab Data
Lab Results
12/09/23 07:54
12/09/23 07:54
Estimated Creat Clear 73 ml/min 03/04/24 07:54
Lactic Acid 1.2 mmol/L (0.7-2.0) 12/05/23 04:38
Total Bilirubin 1.0 mg/dl (0.2-1.3) 12/05/23 04:38
AST 86 U/L (17-59) H 12/05/23 04:38
ALT 48 U/L (0-50) 12/05/23 04:38
Alkaline Phosphatase 104 U/L (38-126) 12/05/23 04:38
Most recent labs reviewed.
Micro Results:
12/04/23 21:53 Blood Culture - Preliminary
Blood/Venous No Growth in 4 days- Final report to follow
12/04/23 20:34 Blood Culture - Preliminary
Blood/Venous No Growth in 4 days- Final report to follow
12/05/23 13:25 Urine Culture - Final
Urine NO GROWTH
12/04/23 21:02 MRSA Screen - Final
Nose No Methicillin Resistant Staphylococcus aureus isolated.
12/04/23 12:55 Influenza Types A & B (KATTY) - Final
Nasal Swab Negative for Influenza A & B, NAAT
Negative results must be combined with clinical observations
and patient history.
Nucleic Acid Amplification test (NAAT)performed on the
[employer] platform.
Imaging:
12/05/2023 CXR (portable): Heart is top normal size. Patchy opacity is seen in the right heart border, new compared to prior CXR obtained the day before. No large pleural effusion or pneumothorax. No radiographic evidence of free intraperitoneal
air. Please see full dictation for additional detail.
[2023-12-09 15:59] VITALS: BP 143/68; PULSE 60; O2SAT 98
[2023-12-09] MEDS: TEGRETOL XR (EXTENDED RELEASE) 100 MG PO (17:45)
[2023-12-09 19:30] VITALS: BP 146/63
[2023-12-09 19:41] VITALS: BP 146/63
[2023-12-09] MEDS: TESSALON PERLES 200 MG PO (21:11)
[2023-12-09] MEDS: LUMINAL 129.599999999999994 MG PO (21:12)
[2023-12-09] MEDS: NORVASC 10 MG PO (21:12)
[2023-12-09] MEDS: TENORMIN 25 MG PO (21:15)
[2023-12-09 23:05] VITALS: BP 148/66
[2023-12-10] MEDS: SYNTHROID 200 MCG PO (05:34)
[2023-12-10 06:40] VITALS: BP 149/65
[2023-12-10] MEDS: ProAIR HFA INHALER 2 PUFF INH ×4 (07:52→19:51)
[2023-12-10] MEDS: HEPARIN 5000 UNITS SC ×2 (09:29→21:05)
[2023-12-10] MEDS: ROBITUSSIN PO ×2 (09:29→09:30)
[2023-12-10] MEDS: OSCAL 500 + D 500 MG PO ×2 (09:30→21:08)
[2023-12-10] MEDS: LEVAQUIN 750 MG PO (09:30)
[2023-12-10] MEDS: CORTEF 20 MG PO (09:30)
[2023-12-10] MEDS: CRESTOR 40 MG PO (09:30)
[2023-12-10] MEDS: TEGRETOL XR (EXTENDED RELEASE) 400 MG PO ×2 (09:31→17:18)
[2023-12-10] MEDS: FOLTX 1 TABLET PO (09:31)
[2023-12-10] MEDS: PROTONIX 40 MG PO (09:31)
[2023-12-10] MEDS: TEGRETOL XR (EXTENDED RELEASE) 200 MG PO (09:31)
[2023-12-10] MEDS: PLAVIX 75 MG PO (09:32)
[2023-12-10] MEDS: METAMUCIL, KONSYL 1 PACKET PO (09:32)
[2023-12-10] MEDS: ZESTRIL 10 MG PO ×2 (09:37→21:08)
[2023-12-10] MEDS: MOLNUPIRAVIR (EUA) 800 MG PO (09:55)
[2023-12-10] MEDS: ROBITUSSIN AC 10 ML PO (10:01)
--- NOTE | 2023-12-10 10:16 | W.PN.HOSP.TC ---
Today's Communication/Plan
-
?
Assessment / Plan
Assessment / Plan
# COVID pneumonia with suspected superimposed bacterial pneumonia
-not hypoxic, with slight hemoptysis secondary to cough. now only wtih dry cough
-COVID-positive, influenza negative
-Chest x-ray Patchy opacity near the right heart border, new compared to yesterday's chest x-ray, suggestive of developing right lower lobe or right middle lobe pneumonia.
-Started on Vanco and Levaquin initially was stopped but now back on levaquin-plan for 5d course (01/09)
-Continue stress dose of the steroid for now and can slowly be weaned off
-Continue with Molnupirvair last dose this morning
-anti-cough meds prn/add Robitussin with codeine as Benzontate ineffective
-Coming off steroid taper and will be at baseline hydrocortisone of 20 mg starting today
-On eighth day of illness
-After PT OT assessment and recommendation is for SNF rehab/and discharge will be dependent on COVID isolation restrictions
# Dysphagia secondary to pharyngitis from COVID
-Cepacol for sore throat
-Robitussin with codeine/benzonatate/guaifenesin
-Feels some improvement we will closely monitor.
-Tolerating diet
CAD status post stent
-Continue Plavix
History of CVA
-Continue Plavix, statin
Essential hypertension
-Continue amlodipine, atenolol, lisinopril elevated and start to waen off high dose steroids and stop IV dose in am if bp continue to remain stable
Hypercholesterolemia
Hypopituitarism
-Continue hydrocortisone
-Patient on testosterone injections
Hypothyroidism
-Continue levothyroxine
History of gastric varices
History of seizure secondary to hypoglycemia
-Continue carbamazepine, phenobarbital
Sciatica
History of bowel obstruction
Partial removal of pancreas
GERD
-Continue Protonix
Full code
DVT prophylaxis�heparin
PT/OT -recs SNF. CM aware. Start dispo.
Anticipated Discharge: Within 24 hours
Subjective/Interval History
-
Date of Service: December 10, 2023
Persisting cough he inadvertently refused the change in cough medicine yesterday thinking it was Metamucil and refused the Robitussin with codeine now agrees to take it this morning. Continues with low-grade
Objective Data
-
Vital Signs:
Vital Signs
Temp Pulse Resp BP Pulse Ox
99.5 F 61 18 149/65 90
12/10/23 06:40 12/10/23 09:37 12/10/23 08:00 12/10/23 09:37 12/10/23 08:00
I&O
12/09/23 12/10/23 12/11/23
06:59 06:59 06:59
Intake Total 1620 / 1620 1320 / 1320
Output Total 400 / 400 400 / 400
Balance 1220 / 1220 920 / 920
Review of Systems
-
History Source: Patient
Constitutional: Reports Fatigue and Weakness
EENT: Reports Sore Throat
Respiratory: Reports Cough and Trouble Breathing
Cardiac: Reports No Symptoms
Abdomen/GI: Reports No Symptoms
Physical Exam
-
General: No Apparent Distress
HEENT: Normocephalic
Respiratory: Crackles
Cardiac: Regular Rhythm
GI: Soft
Skin: Warm
Neuro: Awake, Alert and Oriented
Psych: Calm
Data Reviewed
-
Total Time Spent with Patient (in minutes): 45
Labs: Labs Reviewed by me (White count was normal yesterday)
--- NOTE | 2023-12-10 15:40 | W.PN.ID1 ---
Date of Service
Date of Service: December 10, 2023
Today's Communication
See below...
Assessment / Plan
COVID-19 positive
-Up to date with COVID vaccine
CAP
Fevers - resolved
Cough
CAD; Hx [place]
CVA/TIA
HTN
Dyslipidemia
Hypothyroid
Sciatica
Vertigo
Adrenal insufficiency
Seizure disorder
Recommendations:
Leukocytosis resolved.
Bcx's neg to date.
Continue molnupiravir x 5d through 3/5 am in the treatment of COVID-19.
Continue levofloxacin 750mg po qd 5d through 12/11/23 for CAP.
Pt unable to produce sputum for cx.
Continue benzonatate qhs for cough.
Chief Complaint
-: Pneumonia and Other ( COVID)
Subjective / Review of Systems
Review of Systems: No Fever, No Chills, Cough and No Sputum Production
Vital Signs / Physical Exam
Vital Signs
Vital Signs
Temp Pulse Resp BP Pulse Ox
99.5 F 88 24 149/65 90
12/10/23 06:40 12/10/23 11:45 12/10/23 11:45 12/10/23 09:37 12/10/23 08:00
Physical Exam
Constitutional: No Acute Distress, Comfortable and Non-toxic
Eyes: No Conjunctival Hemorrhage
Cardiovascular: S1/S2; Negative S3/S4
Pulmonary: Non Labored; Negative Wheezes, Rales or Rhonchi
Gastrointestinal: Soft and Non Tender
Objective Data
Lab Data
Lab Results
12/09/23 07:54
12/09/23 07:54
Estimated Creat Clear 73 ml/min 12/09/23 07:54
Lactic Acid 1.2 mmol/L (0.7-2.0) 12/05/23 04:38
Total Bilirubin 1.0 mg/dl (0.2-1.3) 12/05/23 04:38
AST 86 U/L (17-59) H 12/05/23 04:38
ALT 48 U/L (0-50) 12/05/23 04:38
Alkaline Phosphatase 104 U/L (38-126) 12/05/23 04:38
Most recent labs reviewed.
Micro Results:
12/04/23 21:53 Blood Culture - Final
Blood/Venous No Growth - Final Report
12/04/23 20:34 Blood Culture - Final
Blood/Venous No Growth - Final Report
12/05/23 13:25 Urine Culture - Final
Urine NO GROWTH
12/04/23 21:02 MRSA Screen - Final
Nose No Methicillin Resistant Staphylococcus aureus isolated.
12/04/23 12:55 Influenza Types A & B (KATTY) - Final
Nasal Swab Negative for Influenza A & B, NAAT
Negative results must be combined with clinical observations
and patient history.
Nucleic Acid Amplification test (NAAT)performed on the
[employer] platform.
Imaging:
12/05/2023 CXR (portable): Heart is top normal size. Patchy opacity is seen in the right heart border, new compared to prior CXR obtained the day before. No large pleural effusion or pneumothorax. No radiographic evidence of free intraperitoneal
air. Please see full dictation for additional detail.
--- NOTE | 2023-12-10 15:53 | CM ---
Spoke to [facility] liaison. She cannot take patient until 12/14 but can accept earlier at [facility] or [place] sooner.
[2023-12-10 15:55] VITALS: BP 122/52
[2023-12-10] MEDS: ROBITUSSIN 200 MG PO ×2 (17:17→21:09)
[2023-12-10] MEDS: TEGRETOL XR (EXTENDED RELEASE) 100 MG PO (17:18)
[2023-12-10] MEDS: TENORMIN 25 MG PO (21:06)
[2023-12-10] MEDS: NORVASC 10 MG PO (21:08)
[2023-12-10] MEDS: TESSALON PERLES 200 MG PO (21:08)
[2023-12-10] MEDS: LUMINAL 129.599999999999994 MG PO (21:09)
[2023-12-10 23:00] VITALS: BP 134/77
[2023-12-11] MEDS: SYNTHROID 200 MCG PO (04:31)
[2023-12-11 07:30] VITALS: BP 143/67
[2023-12-11] MEDS: ProAIR HFA INHALER 2 PUFF INH ×4 (07:56→19:57)
[2023-12-11 08:12] LABS: Hematocrit 30.4 % (39.0-52.0); Hemoglobin 11.1 g/dL (13.0-18.0); Mean Corp Hgb Conc. 36.5 g/dL (33.0-37.0); Mean Corpuscular Hgb 34.2 pg (27.0-31.0); Mean Corpuscular Volume 93.5 fL (80.0-94.0); Mean Platelet Volume 9.4 fL (7.4-10.4); Platelet Count 263 10^3/uL (130-400); Red Blood Cell Count 3.25 10^6/uL (4.70-6.10); Red Cell Dist. Width 11.3 % (11.5-14.5); White Blood Cell Count 7.9 10^3/uL (4.8-10.8)
[2023-12-11] MEDS: PROTONIX 40 MG PO (09:23)
[2023-12-11] MEDS: TEGRETOL XR (EXTENDED RELEASE) 200 MG PO (09:23)
[2023-12-11] MEDS: OSCAL 500 + D 500 MG PO ×2 (09:23→20:18)
[2023-12-11] MEDS: CORTEF 20 MG PO (09:23)
[2023-12-11] MEDS: ROBITUSSIN 200 MG PO ×3 (09:23→23:22)
[2023-12-11] MEDS: TEGRETOL XR (EXTENDED RELEASE) 400 MG PO ×2 (09:24→17:12)
[2023-12-11] MEDS: ZESTRIL 10 MG PO ×2 (09:24→20:35)
[2023-12-11] MEDS: CRESTOR 40 MG PO (09:24)
[2023-12-11] MEDS: PLAVIX 75 MG PO (09:24)
[2023-12-11] MEDS: LEVAQUIN 750 MG PO (09:24)
[2023-12-11] MEDS: METAMUCIL, KONSYL 1 PACKET PO (09:25)
[2023-12-11] MEDS: HEPARIN 5000 UNITS SC ×2 (09:25→20:17)
[2023-12-11] MEDS: FOLTX 1 TABLET PO (09:25)
--- NOTE | 2023-12-11 09:53 | W.PN.HOSP.TC ---
Today's Communication/Plan
-
Remains on oxygen otherwise stable for discharge to a SNF
Dependent on what facilities recommendations are for excepting COVID-patient/[facility] cannot take till December 14/[facility] can take earlier
Case management will need to speak to the patient to adjust his wishes
To finish course of Levaquin today
Assessment / Plan
Assessment / Plan
# COVID pneumonia with suspected superimposed bacterial pneumonia
-Remains on oxygen, with slight hemoptysis secondary to cough. now only wtih dry cough
-COVID-positive, influenza negative
-Chest x-ray Patchy opacity near the right heart border, new compared to yesterday's chest x-ray, suggestive of developing right lower lobe or right middle lobe pneumonia.
-Started on Vanco and Levaquin initially was stopped but now back on levaquin-plan for 5d course (01/09)
-Initial course of stress steroids now off back to baseline hydrocortisone 20 mg
- Molnupirvair last dose December 09
-anti-cough meds prn/add Robitussin with codeine as Benzontate ineffective
-On ninth day of illness
-After PT OT assessment and recommendation is for SNF rehab/and discharge will be dependent on COVID isolation restrictions/[facility] can take him on December 14 to other facilities able to take him earlier?
# Dysphagia secondary to pharyngitis from COVID
-Cepacol for sore throat
-Robitussin with codeine/benzonatate/guaifenesin
-Feels some improvement we will closely monitor.
-Tolerating diet
CAD status post stent
-Continue Plavix
History of CVA
-Continue Plavix, statin
Essential hypertension
-Continue amlodipine, atenolol, lisinopril elevated and start to waen off high dose steroids and stop IV dose in am if bp continue to remain stable
Hypercholesterolemia
Hypopituitarism
-Continue hydrocortisone
-Patient on testosterone injections
Hypothyroidism
-Continue levothyroxine
History of gastric varices
History of seizure secondary to hypoglycemia
-Continue carbamazepine, phenobarbital
Sciatica
History of bowel obstruction
Partial removal of pancreas
GERD
-Continue Protonix
Full code
DVT prophylaxis�heparin
PT/OT -recs SNF. CM aware. Start dispo.
Anticipated Discharge: Today
Subjective/Interval History
-
Date of Service: December 11, 2023
Still feeling some congestion patient with awakening in the morning that he can bring up. His cough is significantly improved however. He has been afebrile now for 48 hours. Remains on oxygen at 3 L.
Objective Data
-
Labs:
Laboratory Results
12/11/23
06:57
WBC 7.9
Hgb 11.1 L
Hct 30.4 L
Plt Count 263 D
Vital Signs:
Vital Signs
Temp Pulse Resp BP Pulse Ox
98.7 F 57 18 143/67 96
12/11/23 07:30 12/11/23 09:24 12/11/23 08:07 12/11/23 09:24 12/11/23 08:07
I&O
12/10/23 12/11/23 12/12/23
06:59 06:59 06:59
Intake Total 1320 / 1320 1530 / 1530
Output Total 400 / 400
Balance 920 / 920 1530 / 1530
Review of Systems
-
History Source: Patient
EENT: Reports Sore Throat
Respiratory: Reports Cough (Improved)
Abdomen/GI: Reports No Symptoms
Physical Exam
-
General: Well Developed
HEENT: Normocephalic
Respiratory: Clear to Auscultation
Cardiac: Regular Rhythm
GI: Soft and Nontender
Neuro: Awake, Alert, Oriented, AO x 3 and No Motor Deficits
Psych: Calm
Data Reviewed
-
Total Time Spent with Patient (in minutes): 45
Labs: Labs Reviewed by me (White count 7.9/hemoglobin 11.1)
[2023-12-11 15:15] VITALS: BP 145/57
[2023-12-11 15:45] VITALS: BP 121/78; PULSE 75; O2SAT 94
[2023-12-11] MEDS: TEGRETOL XR (EXTENDED RELEASE) 100 MG PO (17:13)
--- NOTE | 2023-12-11 17:41 | W.PN.ID1 ---
Date of Service
Date of Service: December 11, 2023
Today's Communication
Complete course of abx.
Assessment / Plan
COVID-19 positive
- Up to date with COVID vaccine
CAP
Fevers - resolved
Cough
CAD; Hx [place]
CVA/TIA
HTN
Dyslipidemia
Hypothyroid
Sciatica
Vertigo
Adrenal insufficiency
Seizure disorder
Recommendations:
Leukocytosis resolved.
Bcx's neg to date.
Completed 5 day course of molnupiravir.
Completing 5d course of levofloxacin 750mg po qd today..
Pt unable to produce sputum for cx.
Monitor WBC / temps / cough.
Chief Complaint
-: Pneumonia and Other ( COVID)
Subjective / Review of Systems
Review of Systems: No Fever, Cough and No Sputum Production
Vital Signs / Physical Exam
Vital Signs
Vital Signs
Temp Pulse Resp BP Pulse Ox
98.1 F 80 18 145/57 96
12/11/23 15:15 12/11/23 16:18 12/11/23 16:18 12/11/23 15:15 12/11/23 16:18
Physical Exam
Constitutional: No Acute Distress, Comfortable and Non-toxic
Eyes: Sclera Anicteric
Cardiovascular: S1/S2; Negative S3/S4
Pulmonary: Non Labored
Gastrointestinal: Non Distended
Neurological: Awake
Psychological: Calm
Objective Data
Lab Data
Lab Results
12/11/23 06:57
12/09/23 07:54
Estimated Creat Clear 73 ml/min 12/09/23 07:54
Lactic Acid 1.2 mmol/L (0.7-2.0) 12/05/23 04:38
Total Bilirubin 1.0 mg/dl (0.2-1.3) 12/05/23 04:38
AST 86 U/L (17-59) H 12/05/23 04:38
ALT 48 U/L (0-50) 12/05/23 04:38
Alkaline Phosphatase 104 U/L (38-126) 12/05/23 04:38
Most recent labs reviewed.
Micro Results:
12/04/23 21:53 Blood Culture - Final
Blood/Venous No Growth - Final Report
12/04/23 20:34 Blood Culture - Final
Blood/Venous No Growth - Final Report
12/05/23 13:25 Urine Culture - Final
Urine NO GROWTH
12/04/23 21:02 MRSA Screen - Final
Nose No Methicillin Resistant Staphylococcus aureus isolated.
12/04/23 12:55 Influenza Types A & B (KATTY) - Final
Nasal Swab Negative for Influenza A & B, NAAT
Negative results must be combined with clinical observations
and patient history.
Nucleic Acid Amplification test (NAAT)performed on the
[employer] platform.
Imaging:
12/05/2023 CXR (portable): Heart is top normal size. Patchy opacity is seen in the right heart border, new compared to prior CXR obtained the day before. No large pleural effusion or pneumothorax. No radiographic evidence of free intraperitoneal
air. Please see full dictation for additional detail.
[2023-12-11] MEDS: TENORMIN 25 MG PO (23:22)
[2023-12-11] MEDS: LUMINAL 129.599999999999994 MG PO (23:22)
[2023-12-11] MEDS: NORVASC 10 MG PO (23:23)
[2023-12-11 23:33] VITALS: BP 160/69
[2023-12-12] MEDS: SYNTHROID 200 MCG PO (06:03)
[2023-12-12 06:25] VITALS: BP 133/63
[2023-12-12 07:30] VITALS: BP 121/48
[2023-12-12] MEDS: ProAIR HFA INHALER INH (08:23)
--- NOTE | 2023-12-12 09:05 | PTCARENOTE ---
Messaged provider about holding Lisinopril. HR 53 BP 121/48. Provider advised to give medication.
[2023-12-12] MEDS: PLAVIX 75 MG PO (09:19)
[2023-12-12] MEDS: ZESTRIL 10 MG PO ×2 (09:19→20:39)
[2023-12-12] MEDS: PROTONIX 40 MG PO (09:19)
[2023-12-12] MEDS: CORTEF 20 MG PO (09:19)
[2023-12-12] MEDS: ROBITUSSIN 200 MG PO ×3 (09:19→21:58)
[2023-12-12] MEDS: FOLTX 1 TABLET PO (09:19)
[2023-12-12] MEDS: METAMUCIL, KONSYL 1 PACKET PO (09:20)
[2023-12-12] MEDS: HEPARIN 5000 UNITS SC ×2 (09:20→20:39)
[2023-12-12] MEDS: CRESTOR 40 MG PO (09:20)
[2023-12-12] MEDS: TEGRETOL XR (EXTENDED RELEASE) 200 MG PO (09:20)
[2023-12-12] MEDS: TEGRETOL XR (EXTENDED RELEASE) 400 MG PO ×2 (09:20→17:49)
[2023-12-12] MEDS: OSCAL 500 + D 500 MG PO ×2 (09:22→20:39)
--- NOTE | 2023-12-12 09:50 | W.PN.HOSP.TC ---
Today's Communication/Plan
-
Medically stable for discharge once facility available to take for rehab
Today is his 10th day of the illness and should no longer require isolation
Finish course of therapy for COVID and bacterial pneumonia
Continue antitussives
Assessment / Plan
Assessment / Plan
# COVID pneumonia with suspected superimposed bacterial pneumonia
-Remains on oxygen, with slight hemoptysis secondary to cough. now only wtih dry cough
-COVID-positive, influenza negative
-Chest x-ray Patchy opacity near the right heart border, new compared to yesterday's chest x-ray, suggestive of developing right lower lobe or right middle lobe pneumonia.
-Started on Vanco and Levaquin initially was stopped but now back on levaquin-plan for 5d course (02/08)/finish course of antibiotic
-Initial course of stress steroids now off back to baseline hydrocortisone 20 mg
- Molnupirvair last dose December 09
-anti-cough meds prn/add Robitussin with codeine as Benzontate ineffective
-On tenth day of illness
-After PT OT assessment and recommendation is for SNF rehab/and discharge will be dependent on COVID isolation restrictions/[facility] can take him on December 14 to other facilities able to take him earlier?
# Dysphagia secondary to pharyngitis from COVID
-Cepacol for sore throat
-Robitussin with codeine/benzonatate/guaifenesin
-Feels some improvement we will closely monitor.
-Tolerating diet
CAD status post stent
-Continue Plavix
History of CVA
-Continue Plavix, statin
Essential hypertension
-Continue amlodipine, atenolol, lisinopril elevated and start to waen off high dose steroids and stop IV dose in am if bp continue to remain stable
Hypercholesterolemia
Hypopituitarism
-Continue hydrocortisone
-Patient on testosterone injections
Hypothyroidism
-Continue levothyroxine
History of gastric varices
History of seizure secondary to hypoglycemia
-Continue carbamazepine, phenobarbital
Sciatica
History of bowel obstruction
Partial removal of pancreas
GERD
-Continue Protonix
Full code
DVT prophylaxis�heparin
PT/OT -recs SNF. CM aware. Start dispo.
Anticipated Discharge: Today
Subjective/Interval History
-
Date of Service: December 12, 2023
Persisting cough and some sore throat no fever wants to talk to case management over his wishes for rehab location.
Objective Data
-
Vital Signs:
Vital Signs
Temp Pulse Resp BP Pulse Ox
98.6 F 53 17 121/48 93
12/12/23 07:30 12/12/23 07:30 12/12/23 07:30 12/12/23 07:30 12/12/23 07:30
I&O
12/11/23 12/12/23 12/13/23
06:59 06:59 06:59
Intake Total 1530 / 1530 480 / 480
Output Total 1075 / 1075
Balance 1530 / 1530 -595 / -595
Review of Systems
-
History Source: Patient
Constitutional: Denies Fever
EENT: Reports No Symptoms Reported
Respiratory: Reports Cough; Denies Wheezing
Abdomen/GI: Reports No Symptoms
Physical Exam
-
General: Well Developed
HEENT: Normocephalic and Neck Non Tender (Throat neck tenderness still); Negative Oxygen (off)
Respiratory: Rhonchi; Negative Wheezes
Cardiac: Regular Rhythm
GI: Soft
Data Reviewed
-
Total Time Spent with Patient (in minutes): 54
Labs: Labs Reviewed by me
--- NOTE | 2023-12-12 13:51 | W.PN.ID1 ---
Date of Service
Date of Service: December 12, 2023
Today's Communication
Observe off abx.
Assessment / Plan
COVID-19 positive
- Up to date with COVID vaccine
CAP
Fevers - resolved
Cough
CAD; Hx [place]
CVA/TIA
HTN
Dyslipidemia
Hypothyroid
Sciatica
Vertigo
Adrenal insufficiency
Seizure disorder
Recommendations:
Leukocytosis resolved.
Bcx's neg.
Completed 5 day course of molnupiravir.
Completed 5d course of levofloxacin.
Observe off abx. Await disposition.
����������������������������������������������������������
Chief Complaint
-: Pneumonia and Other ( COVID)
Subjective / Review of Systems
Review of Systems: No Fever and Cough
Vital Signs / Physical Exam
Vital Signs
Vital Signs
Temp Pulse Resp BP Pulse Ox
98.6 F 53 17 121/48 93
12/12/23 07:30 12/12/23 07:30 12/12/23 07:30 12/12/23 07:30 12/12/23 07:30
Physical Exam
Constitutional: No Acute Distress, Comfortable and Non-toxic
Cardiovascular: S1/S2; Negative S3/S4
Pulmonary: Non Labored; Negative Wheezes or Rhonchi
Gastrointestinal: Soft and Non Distended
Psychological: Calm
Objective Data
Lab Data
Lab Results
12/11/23 06:57
12/09/23 07:54
Estimated Creat Clear 73 ml/min 12/09/23 07:54
Lactic Acid 1.2 mmol/L (0.7-2.0) 12/05/23 04:38
Total Bilirubin 1.0 mg/dl (0.2-1.3) 12/05/23 04:38
AST 86 U/L (17-59) H 12/05/23 04:38
ALT 48 U/L (0-50) 12/05/23 04:38
Alkaline Phosphatase 104 U/L (38-126) 12/05/23 04:38
Most recent labs reviewed.
Micro Results:
12/04/23 21:53 Blood Culture - Final
Blood/Venous No Growth - Final Report
12/04/23 20:34 Blood Culture - Final
Blood/Venous No Growth - Final Report
12/05/23 13:25 Urine Culture - Final
Urine NO GROWTH
12/04/23 21:02 MRSA Screen - Final
Nose No Methicillin Resistant Staphylococcus aureus isolated.
12/04/23 12:55 Influenza Types A & B (KATTY) - Final
Nasal Swab Negative for Influenza A & B, NAAT
Negative results must be combined with clinical observations
and patient history.
Nucleic Acid Amplification test (NAAT)performed on the
[employer] platform.
Imaging:
12/05/2023 CXR (portable): Heart is top normal size. Patchy opacity is seen in the right heart border, new compared to prior CXR obtained the day before. No large pleural effusion or pneumothorax. No radiographic evidence of free intraperitoneal
air. Please see full dictation for additional detail.
[2023-12-12 15:30] VITALS: BP 153/69
--- NOTE | 2023-12-12 15:35 | CM ---
Addendum entered by Lulu Moore 12/12/23 15:40:
attending awae of plan of care.
Original Note:
patient ready for rehab per attending.covid +/pna he is no longer on iv abx.continues with 2 liters nc o2.spoke with [facility] at [facility] [place]illing [place] accept patient but not sure of bed availability until 12/14.other facilities have denied patient for
adm.notified attending.cm to follow bed availability.
Plan is [facility] hopefully on 12/15/23.
[2023-12-12] MEDS: TEGRETOL XR (EXTENDED RELEASE) 100 MG PO (17:49)
[2023-12-12] MEDS: LUMINAL 129.599999999999994 MG PO (21:57)
[2023-12-12] MEDS: TENORMIN 25 MG PO (21:58)
[2023-12-12] MEDS: NORVASC 10 MG PO (21:58)
[2023-12-13 00:03] VITALS: BP 135/58
[2023-12-13] MEDS: SYNTHROID 200 MCG PO (06:14)
[2023-12-13] MEDS: ROBITUSSIN 200 MG PO ×2 (07:58→16:40)
[2023-12-13] MEDS: OSCAL 500 + D 500 MG PO ×2 (07:59→20:16)
[2023-12-13] MEDS: CRESTOR 40 MG PO (07:59)
[2023-12-13] MEDS: PROTONIX 40 MG PO (07:59)
[2023-12-13] MEDS: PLAVIX 75 MG PO (07:59)
[2023-12-13] MEDS: HEPARIN 5000 UNITS SC ×2 (08:00→20:14)
[2023-12-13] MEDS: METAMUCIL, KONSYL 1 PACKET PO (08:00)
[2023-12-13] MEDS: ZESTRIL 10 MG PO ×2 (08:00→20:24)
[2023-12-13] MEDS: TEGRETOL XR (EXTENDED RELEASE) 400 MG PO ×2 (08:02→16:41)
[2023-12-13] MEDS: CORTEF 20 MG PO (08:02)
[2023-12-13] MEDS: FOLTX 1 TABLET PO (08:02)
[2023-12-13] MEDS: TEGRETOL XR (EXTENDED RELEASE) 200 MG PO (08:03)
[2023-12-13 08:07] VITALS: BP 138/64
--- NOTE | 2023-12-13 10:57 | W.PN.HOSP.TC ---
Today's Communication/Plan
-
Stable for discharge medically
Back on baseline steroids
Out of isolation
Awaiting disposition to [facility] and cannot be accepted until 14 December
Assessment / Plan
Assessment / Plan
# COVID pneumonia with suspected superimposed bacterial pneumonia
-Remains on oxygen, with slight hemoptysis secondary to cough. now only wtih dry cough
-COVID-positive, influenza negative
-Chest x-ray Patchy opacity near the right heart border, new compared to yesterday's chest x-ray, suggestive of developing right lower lobe or right middle lobe pneumonia.
-Started on Vanco and Levaquin initially was stopped but now back on levaquin-plan for 5d course (02/08)/finish course of antibiotic
-Initial course of stress steroids now off back to baseline hydrocortisone 20 mg
- Molnupirvair last dose December 09
-anti-cough meds prn/add Robitussin with codeine as Benzontate ineffective
-On 11th day of illness/okay out of isolation
-After PT OT assessment and recommendation is for SNF rehab/and discharge will be dependent on [facility] isolation restrictions/[place] can take him on December 14 to other facilities able to take him earlier?
# Dysphagia secondary to pharyngitis from COVID
-Cepacol for sore throat
-Robitussin with codeine/benzonatate/guaifenesin
-Feels some improvement we will closely monitor.
-Tolerating diet
CAD status post stent
-Continue Plavix
History of CVA
-Continue Plavix, statin
Essential hypertension
-Continue amlodipine, atenolol, lisinopril elevated and start to waen off high dose steroids and stop IV dose in am if bp continue to remain stable
Hypercholesterolemia
Hypopituitarism
-Continue hydrocortisone
-Patient on testosterone injections
Hypothyroidism
-Continue levothyroxine
History of gastric varices
History of seizure secondary to hypoglycemia
-Continue carbamazepine, phenobarbital
Sciatica
History of bowel obstruction
Partial removal of pancreas
GERD
-Continue Protonix
Full code
DVT prophylaxis�heparin
PT/OT -recs SNF. CM aware. Start dispo.
Anticipated Discharge: 24 - 48 hours
Subjective/Interval History
-
Date of Service: December 13, 2023
Working better off oxygen less cough not short of breath eating a.m. meal without issue.
Objective Data
-
Vital Signs:
Vital Signs
Temp Pulse Resp BP Pulse Ox
97.5 F 56 20 138/64 96
12/13/23 08:07 12/13/23 08:07 12/13/23 08:07 12/13/23 08:07 12/13/23 08:07
I&O
12/12/23 12/13/23 12/14/23
06:59 06:59 06:59
Intake Total 480 / 480 360 / 360
Output Total 1075 / 1075
Balance -595 / -595 360 / 360
Review of Systems
-
All other systems: Not reviewed unless documented
Physical Exam
-
General: Well Developed
HEENT: Normocephalic
Cardiac: Regular Rhythm
GI: Soft, Nontender and Nondistended
Genito-urinary: No Costovertebral Tender
Musculoskeletal: No Clubbing
Neuro: Awake, Alert, Oriented and AO x 3
Data Reviewed
-
Total Time Spent with Patient (in minutes): 56
Labs: Labs Reviewed by me
--- NOTE | 2023-12-13 13:33 | W.PN.ID1 ---
Date of Service
Date of Service: December 13, 2023
Today's Communication
Observe off antibiotics.
Assessment / Plan
COVID-19 positive
- Up to date with COVID vaccine
CAP
Fevers - resolved
Cough
CAD; Hx MA
CVA/TIA
HTN
Dyslipidemia
Hypothyroid
Sciatica
Vertigo
Adrenal insufficiency
Seizure disorder
Recommendations:
Leukocytosis resolved.
Bcx's neg.
Completed 5 day course of molnupiravir.
Completed 5d course of levofloxacin.
Observe off abx. Await disposition.
����������������������������������������������������������
Chief Complaint
-: Pneumonia and Other ( COVID)
Subjective / Review of Systems
Review of Systems: No Fever, No Chills and No Cough
Vital Signs / Physical Exam
Vital Signs
Vital Signs
Temp Pulse Resp BP Pulse Ox
97.5 F 56 20 138/64 96
12/13/23 08:07 12/13/23 08:07 12/13/23 08:07 12/13/23 08:07 12/13/23 08:07
Physical Exam
Constitutional: No Acute Distress, Comfortable, Chronically Ill and Non-toxic
Eyes: Sclera Anicteric
Pulmonary: Non Labored
Skin: Negative Rash or Jaundice
Neurological: Awake and Alert
Psychological: Calm
Objective Data
Lab Data
Lab Results
12/11/23 06:57
12/09/23 07:54
Estimated Creat Clear 73 ml/min 12/09/23 07:54
Lactic Acid 1.2 mmol/L (0.7-2.0) 12/05/23 04:38
Total Bilirubin 1.0 mg/dl (0.2-1.3) 02/29/24 04:38
AST 86 U/L (17-59) H 12/05/23 04:38
ALT 48 U/L (0-50) 12/05/23 04:38
Alkaline Phosphatase 104 U/L (38-126) 12/05/23 04:38
Most recent labs reviewed.
Micro Results:
12/04/23 21:53 Blood Culture - Final
Blood/Venous No Growth - Final Report
12/04/23 20:34 Blood Culture - Final
Blood/Venous No Growth - Final Report
12/05/23 13:25 Urine Culture - Final
Urine NO GROWTH
12/04/23 21:02 MRSA Screen - Final
Nose No Methicillin Resistant Staphylococcus aureus isolated.
12/04/23 12:55 Influenza Types A & B (KATTY) - Final
Nasal Swab Negative for Influenza A & B, NAAT
Negative results must be combined with clinical observations
and patient history.
Nucleic Acid Amplification test (NAAT)performed on the
[employer] NOW platform.
Imaging:
12/05/2023 CXR (portable): Heart is top normal size. Patchy opacity is seen in the right heart border, new compared to prior CXR obtained the day before. No large pleural effusion or pneumothorax. No radiographic evidence of free intraperitoneal
air. Please see full dictation for additional detail.
[2023-12-13 15:00] VITALS: BP 104/49
[2023-12-13 15:33] VITALS: BP 104/49; PULSE 50; O2SAT 99
[2023-12-13] MEDS: TEGRETOL XR (EXTENDED RELEASE) 100 MG PO (17:07)
[2023-12-13 23:59] VITALS: BP 127/76
[2023-12-13] MEDS: TENORMIN PO (23:59)
[2023-12-14] MEDS: ROBITUSSIN 200 MG PO ×3 (00:35→21:05)
[2023-12-14] MEDS: LUMINAL 129.599999999999994 MG PO ×2 (00:35→21:04)
[2023-12-14] MEDS: NORVASC 10 MG PO ×2 (00:36→21:05)
[2023-12-14] MEDS: SYNTHROID 200 MCG PO (06:02)
[2023-12-14 07:00] VITALS: BP 150/56
[2023-12-14] MEDS: HEPARIN 5000 UNITS SC ×2 (09:26→20:51)
[2023-12-14] MEDS: OSCAL 500 + D 500 MG PO ×2 (09:27→20:52)
[2023-12-14] MEDS: CRESTOR 40 MG PO (09:27)
[2023-12-14] MEDS: FOLTX 1 TABLET PO (09:27)
[2023-12-14] MEDS: PROTONIX 40 MG PO (09:27)
[2023-12-14] MEDS: CORTEF 20 MG PO (09:27)
[2023-12-14] MEDS: PLAVIX 75 MG PO (09:27)
[2023-12-14] MEDS: TEGRETOL XR (EXTENDED RELEASE) 400 MG PO ×2 (09:27→17:11)
[2023-12-14] MEDS: TEGRETOL XR (EXTENDED RELEASE) 200 MG PO (09:27)
[2023-12-14] MEDS: ZESTRIL 10 MG PO ×2 (09:27→21:13)
[2023-12-14] MEDS: ROBITUSSIN PO ×2 (09:28→09:31)
[2023-12-14] MEDS: METAMUCIL, KONSYL PO (09:28)
--- NOTE | 2023-12-14 11:15 | W.PN.HOSP.TC ---
Today's Communication/Plan
-
Medically stable for discharge to [place] in a.m. will place order
Assessment / Plan
Assessment / Plan
# COVID pneumonia with suspected superimposed bacterial pneumonia /now out of isolation
-Off oxygen, with slight hemoptysis secondary to cough. now only wtih dry cough
-COVID-positive, influenza negative
-Chest x-ray Patchy opacity near the right heart border, new compared to yesterday's chest x-ray, suggestive of developing right lower lobe or right middle lobe pneumonia.
-Started on Vanco and Levaquin initially was stopped but now back on levaquin-plan for 5d course (02/08)/finish course of antibiotic
-Initial course of stress steroids now off back to baseline hydrocortisone 20 mg
- Molnupirvair last dose December 09
-anti-cough meds prn/add Robitussin with codeine as Benzontate ineffective
-On 12th day of illness/okay out of isolation
-After PT OT assessment and recommendation is for SNF rehab/and discharge will be dependent on COVID isolation restrictions/[facility] home can take him on December 14 to other facilities able to take him earlier?
# Dysphagia secondary to pharyngitis from COVID
-Cepacol for sore throat
-Robitussin with codeine/benzonatate/guaifenesin
-Feels some improvement we will closely monitor.
-Tolerating diet
CAD status post stent
-Continue Plavix
History of CVA
-Continue Plavix, statin
Essential hypertension
-Continue amlodipine, atenolol, lisinopril elevated and start to waen off high dose steroids and stop IV dose in am if bp continue to remain stable
Hypercholesterolemia
Hypopituitarism
-Continue hydrocortisone
-Patient on testosterone injections
Hypothyroidism
-Continue levothyroxine
History of gastric varices
History of seizure secondary to hypoglycemia
-Continue carbamazepine, phenobarbital
Sciatica
History of bowel obstruction
Partial removal of pancreas
GERD
-Continue Protonix
Full code
DVT prophylaxis�heparin
PT/OT -recs SNF. CM aware. Start dispo. Should be okay for discharge in a.m. to [place]
Anticipated Discharge: Within 24 hours
Subjective/Interval History
-
Date of Service: December 14, 2023
Awake and alert somewhat frustrated of the fact that he is still here still awaiting SNF placement at [place] minor cough now significantly improved not on oxygen
Objective Data
-
Vital Signs:
Vital Signs
Temp Pulse Resp BP Pulse Ox
98.3 F 53 18 150/56 99
12/14/23 07:00 12/14/23 07:00 12/14/23 07:00 12/14/23 07:00 12/14/23 07:00
I&O
12/13/23 12/14/23 12/15/23
06:59 06:59 07:59
Intake Total 360 / 360 360 / 360
Output Total 1050 / 1050
Balance 360 / 360 -690 / -690
Review of Systems
-
All other systems: Not reviewed unless documented
Respiratory: Reports Cough
Cardiac: Reports No Symptoms
Abdomen/GI: Reports No Symptoms
Physical Exam
-
General: Well Developed
HEENT: Normocephalic
Respiratory: Crackles
Cardiac: Regular Rhythm
GI: Soft
Data Reviewed
-
Total Time Spent with Patient (in minutes): 45
Labs: Labs Reviewed by me
--- NOTE | 2023-12-14 11:35 | W.PN.ID1 ---
Date of Service
Date of Service: December 14, 2023
Today's Communication
Observe off abx.
Assessment / Plan
COVID-19 positive
- Up to date with COVID vaccine
CAP
Fevers - resolved
Cough
CAD; Hx VT
CVA/TIA
HTN
Dyslipidemia
Hypothyroid
Sciatica
Vertigo
Adrenal insufficiency
Seizure disorder
Recommendations:
Leukocytosis resolved.
Bcx's neg.
Completed 5 day course of molnupiravir.
Completed 5d course of levofloxacin.
Observe off abx. Await disposition.
����������������������������������������������������������
Chief Complaint
-: Pneumonia and Other ( COVID)
Subjective / Review of Systems
Review of Systems: No Fever and No Chills
Vital Signs / Physical Exam
Vital Signs
Vital Signs
Temp Pulse Resp BP Pulse Ox
98.3 F 53 18 150/56 99
12/14/23 07:00 12/14/23 07:00 12/14/23 07:00 12/14/23 07:00 12/14/23 07:00
Physical Exam
Physical Exam:
Constitutional: No Acute Distress, Comfortable, Chronically Ill in appearance. Non-toxic.
Eyes: Sclera Anicteric.
Pulmonary: Non Labored
Skin: Negative Rash or Jaundice
Neurological: Awake and Alert
Psychological: Calm
Objective Data
Lab Data
Lab Results
12/11/23 06:57
12/09/23 07:54
Estimated Creat Clear 73 ml/min 12/09/23 07:54
Lactic Acid 1.2 mmol/L (0.7-2.0) 12/05/23 04:38
Total Bilirubin 1.0 mg/dl (0.2-1.3) 12/05/23 04:38
AST 86 U/L (17-59) H 12/05/23 04:38
ALT 48 U/L (0-50) 12/05/23 04:38
Alkaline Phosphatase 104 U/L (38-126) 12/05/23 04:38
Most recent labs reviewed.
Micro Results:
12/04/23 21:53 Blood Culture - Final
Blood/Venous No Growth - Final Report
12/04/23 20:34 Blood Culture - Final
Blood/Venous No Growth - Final Report
12/05/23 13:25 Urine Culture - Final
Urine NO GROWTH
12/04/23 21:02 MRSA Screen - Final
Nose No Methicillin Resistant Staphylococcus aureus isolated.
12/04/23 12:55 Influenza Types A & B (KATTY) - Final
Nasal Swab Negative for Influenza A & B, NAAT
Negative results must be combined with clinical observations
and patient history.
Nucleic Acid Amplification test (NAAT)performed on the
[employer] NOW platform.
Imaging:
12/05/2023 CXR (portable): Heart is top normal size. Patchy opacity is seen in the right heart border, new compared to prior CXR obtained the day before. No large pleural effusion or pneumothorax. No radiographic evidence of free intraperitoneal
air. Please see full dictation for additional detail.
[2023-12-14 15:00] VITALS: BP 118/56
[2023-12-14] MEDS: TEGRETOL XR (EXTENDED RELEASE) 100 MG PO (17:11)
[2023-12-14] MEDS: TENORMIN 25 MG PO (21:05)
[2023-12-14 23:59] VITALS: BP 141/59
[2023-12-15] MEDS: SYNTHROID 200 MCG PO (05:36)
[2023-12-15 07:30] VITALS: BP 143/58
[2023-12-15] MEDS: PROTONIX 40 MG PO (08:00)
[2023-12-15] MEDS: TEGRETOL XR (EXTENDED RELEASE) 200 MG PO (08:00)
[2023-12-15] MEDS: TEGRETOL XR (EXTENDED RELEASE) 400 MG PO (08:00)
[2023-12-15] MEDS: OSCAL 500 + D 500 MG PO (08:00)
[2023-12-15] MEDS: FOLTX 1 TABLET PO (08:00)
[2023-12-15] MEDS: CORTEF 20 MG PO (08:00)
[2023-12-15] MEDS: CRESTOR 40 MG PO (08:00)
[2023-12-15] MEDS: ZESTRIL 10 MG PO (08:01)
[2023-12-15] MEDS: METAMUCIL, KONSYL PO (08:01)
[2023-12-15] MEDS: ROBITUSSIN 200 MG PO ×2 (08:01→15:33)
[2023-12-15] MEDS: PLAVIX 75 MG PO (08:01)
[2023-12-15] MEDS: HEPARIN 5000 UNITS SC (08:01)
--- NOTE | 2023-12-15 09:46 | W.DS.TRANS ---
DC Summary - [employer]
-
Discharge Instructions:
Discharge Diagnosis/Procedures COVID-19 positive/completed 5-day course of
molnupiravir/Levaquin
Now off of isolation.
Leukocytosis resolved
Proximal respiratory failure resolved
History of adrenal insufficiency and
immunocompromise/back on baseline steroid
management
Diet As tolerated
Activity As tolerated
Driving Restrictions As prior to admission
Instructions:
Stand-Alone Forms:
Changes to Home Medications: Yes
Discharge Medications:
DC Medications w/original date entered in appEatIT
levothyroxine 200 mcg tablet 200 mcg PO DAILY Thyroid 02/19/15
amlodipine 10 mg tablet 10 mg PO HS Blood pressure 09/28/18
atenolol 25 mg tablet 25 mg PO HS Blood pressure 09/28/18
calcium carbonate 500 mg-vitamin D3 5 mcg (200 unit) tablet (Oyster Shell Calcium-Vitamin D3) 1 tab PO BID Supplement 03/18/20
hydrocortisone 10 mg tablet 20 mg PO DAILY ADRENAL INSUFFICIENCY 03/18/20
testosterone cypionate 200 mg/mL intramuscular oil 0.25 ml IM Q2W LOW TESTOSTERONE 03/18/20
phenobarbital 64.8 mg tablet 129.6 mg PO HS Seizures 10/03/20
clopidogrel 75 mg tablet 75 mg PO DAILY #30 tabs 10/05/20
nitroglycerin 0.4 mg sublingual tablet 0.4 mg sublingual [id number] PRN chest pain #25 tabs 10/05/20
pantoprazole 40 mg tablet,delayed release 40 mg PO DAILY Gastrointestinal issue 10/26/20
folic acid-vit B6-vit B12 2.5 mg-25 mg-2 mg tablet (Folbic) 1 tab PO DAILY Supplement 12/21/20
guar gum 1 tsp PO DAILY Supplement 12/21/20
carbamazepine 100 mg tablet,extended release,12 hr (Tegretol XR) 100 mg PO QPM Seizures 12/04/23
carbamazepine 100 mg tablet,extended release,12 hr (Tegretol XR) 200 mg PO DAILY Seizures 12/04/23
carbamazepine 400 mg tablet,extended release,12 hr (Tegretol XR) 400 mg PO BID@0800,1700 Seizures 12/04/23
lisinopril 10 mg tablet 10 mg PO BID Blood Pressure 12/04/23
rosuvastatin 40 mg tablet 40 mg PO DAILY High Cholesterol 12/04/23
benzocaine 6 mg-menthol 10 mg lozenges (Chloraseptic Sore Throat) 1 sam PO Q4HPRN PRN sore throat #0 ea 12/15/23
benzonatate 100 mg capsule 200 mg PO TIDPRN PRN cough #0 caps 12/15/23
guaifenesin 100 mg/5 mL oral liquid (Siltussin SA) 200 mg (10 mL) PO TID #0 mL 12/15/23
Home Medication Changes
benzocaine 6 mg-menthol 10 mg lozenges (Chloraseptic Sore Throat) 1 sam PO Q4HPRN PRN sore throat #0 ea 12/15/23
benzonatate 100 mg capsule 200 mg PO TIDPRN PRN cough #0 caps 12/15/23
guaifenesin 100 mg/5 mL oral liquid (Siltussin SA) 200 mg (10 mL) PO TID #0 mL 12/15/23
Pending Results: No
Total time spent discharging patient (in min): 38
--- NOTE | 2023-12-15 10:52 | W.DCSUMMARY ---
Discharge Summary
Discharge Data
Date of Admission: 12/05/23
Date of Discharge: 12/15/23
-
Pending Results: No
Hospital Course
Patient is a 63-year-old male with a past medical history includes coronary artery disease post stent, hypopituitarism with history of gastric varices hypertension hypercholesterolemia seizures secondary to hypoglycemia in the past along with
hypothyroidism partial removal of the pancreas presents from [facility] with generalized fatigue sore throat cough and shortness of breath there may have been also some suspect hemoptysis. Main complaint however was
severity of his sore throat prior to presentation patient had been fully vaccinated for COVID symptom onset may have predated presentation by 3 days and he did test positive for COVID although not hypoxemic did not meet criteria for antiviral
therapy with remdesivir patient was admitted consultation was placed with the infectious disease service who felt that the patient after review of chest x-ray showing a retrocardiac right sided infiltrate may have a concomitant bacterial infection
and the patient was started on moderate molnupiravir x 5 days and Levaquin x 5 days with a procalcitonin was elevated at 0.75. He had continued to have sore throat and did develop a. Short period of hypoxia that was self-limited he was placed on a
stress dose course of steroids noting his steroid dependency history. He was continued on antitussives initially refractory with benzonatate and eventually needing Robitussin with codeine with that this is significantly improved
At this point in time is recommended the patient pursue a rehab course for further conditioning post his COVID illness he is out of COVID isolation precautions. He has been accepted at [facility] and is considered medically stable for same
he has completed both his course of COVID therapy with molnupiravir and completed his course of Levaquin
Discharge Plan
-
Patient Disposition: Detention/SNF
Discharge Diagnosis/Procedures: COVID-19 positive/completed 5-day course of molnupiravir/Levaquin
Now off of isolation.
Leukocytosis resolved
Proximal respiratory failure resolved
History of adrenal insufficiency and immunocompromise/back on baseline steroid management
Diet: As tolerated
Activity: As tolerated
Driving Restrictions: As prior to admission
Referrals:
Jean Carlos Frazier MD [Family Provider] - in less than 1 week
Prescriptions:
New
guaifenesin [Siltussin SA] 100 mg/5 mL Liquid
200 mg PO TID Qty: 0 0RF
benzonatate 100 mg Capsule
200 mg PO TIDPRN PRN (Reason: cough) Qty: 0 0RF
Chloraseptic Sore Throat 6-10 mg Lozenge
1 sam PO Q4HPRN PRN (Reason: sore throat) Qty: 0 0RF
Continued
levothyroxine 200 MCG tablet
200 mcg PO DAILY
atenolol 25 MG tablet
25 mg PO HS
amlodipine 10 MG tablet
10 mg PO HS
hydrocortisone 10 MG tablet
20 mg PO DAILY
testosterone cypionate 200 MG/ML oil
0.25 ml IM Q2W
calcium carbonate-vitamin D3 [Oyster Shell Calcium-Vit D3] 500 MG tablet
1 tab PO BID
phenobarbital 64.8 MG tablet
129.6 mg PO HS
Patient Comments:
12/04/2023: last filled 11/18/23, 180 tabs for 90 days from [facility]
clopidogrel 75 MG tablet
75 mg PO DAILY Qty: 30 5RF
nitroglycerin 0.4 MG tablet, sublingual
0.4 mg sublingual [id number] PRN (Reason: chest pain) Qty: 25 5RF
pantoprazole 40 MG tablet,delayed release (DR/EC)
40 mg PO DAILY
guar gum 1 PKT packet
1 tsp PO DAILY
Folbic 1 EACH tablet
1 tab PO DAILY
carbamazepine [Tegretol XR] 100 mg tablet extended release 12 hr
200 mg PO DAILY
Rx Instructions:
*BRAND ONLY*
carbamazepine [Tegretol XR] 100 mg tablet extended release 12 hr
100 mg PO QPM
Rx Instructions:
*BRAND ONLY*
carbamazepine [Tegretol XR] 400 mg tablet extended release 12 hr
400 mg PO BID@0800,1700
Rx Instructions:
*BRAND ONLY*
lisinopril 10 mg tablet
10 mg PO BID
rosuvastatin 40 mg tablet
40 mg PO DAILY
Discharge Orders:
Discharge Patient (As Directed); Ordered 12/15/23
Ordered By: Basil Murphy
--- NOTE | 2023-12-15 12:47 | CM ---
For dc to [facility] today.
Transport forms and IMM completed
Report #
[2023-12-15 15:20] VITALS: BP 160/66
== END 2023-12-15 17:00 | DRG 177 ==
LOC: 4 WEST ACU 14:26
PROVIDERS: Emergency Medicine; Hospitalist; Nurse Practitioner Gerontology; ADMITTING PHYSICIAN Hospitalist; ATTENDING PHYSICIAN Internal Medicine; CONSULT PHYSICIAN Internal Medicine Infectious Disease; EMERGENCY PHYSICIAN Student in an Organized Health Care Education/Training Program; FAMILY PHYSICIAN Internal Medicine
DX: U07.1 COVID-19 (principal); J12.82 Pneumonia due to coronavirus disease 2019; E23.0 Hypopituitarism; I25.10 Atherosclerotic heart disease of native coronary artery without angina pectoris; I10 Essential (primary) hypertension; E78.00 Pure hypercholesterolemia, unspecified; E03.9 Hypothyroidism, unspecified; R13.10 Dysphagia, unspecified; K21.9 Gastro-esophageal reflux disease without esophagitis; Z79.02 Long term (current) use of antithrombotics/antiplatelets; I25.2 Old myocardial infarction; Z86.73 Personal history of transient ischemic attack (TIA), and cerebral infarction without residual deficits
CPT/HCPCS: 71045; 71046; 80048; 80053; 81003; 81015; 83605; 84145; 85025; 85027; 87040; 87070; 87086; 87502; 87811; 93005; 94640; 96361; 96374; 97110; 97116; 97162; 97166; 97530; 97535; 99285

== ENCOUNTER → 2024-01-24 12:29 | Outpatient (REF) | payer MEDICARE, BC, SELFPAY | LOC: RAD 12:29 | PROVIDERS: ATTENDING PHYSICIAN Internal Medicine; REFERRING PHYSICIAN Specialist | DX: J18.9 Pneumonia, unspecified organism (principal) | CPT/HCPCS: 71046 ==

== ENCOUNTER 2024-05-13 13:12 | Emergency (ER) | payer SELFPAY ==
[2024-05-13 13:13] VITALS: BP 152/65
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
[2024-05-13 16:03] VITALS: BP 170/75
== END 2024-05-13 16:30 | disposition home or self-care (01) ==
LOC: EMR 13:12
PROVIDERS: EMERGENCY PHYSICIAN Emergency Medicine; FAMILY PHYSICIAN Internal Medicine
DX: R42 Dizziness and giddiness (principal); V47.0XXA Car driver injured in collision with fixed or stationary object in nontraffic accident, initial encounter; Y92.481 Parking lot as the place of occurrence of the external cause; I25.10 Atherosclerotic heart disease of native coronary artery without angina pectoris; I10 Essential (primary) hypertension; E03.9 Hypothyroidism, unspecified; E78.00 Pure hypercholesterolemia, unspecified; R56.9 Unspecified convulsions; E16.2 Hypoglycemia, unspecified; M54.30 Sciatica, unspecified side; Z77.22 Contact with and (suspected) exposure to environmental tobacco smoke (acute) (chronic); I25.2 Old myocardial infarction; Z95.5 Presence of coronary angioplasty implant and graft; Z86.73 Personal history of transient ischemic attack (TIA), and cerebral infarction without residual deficits; Z90.411 Acquired partial absence of pancreas
CPT/HCPCS: 99284; 70450

== ENCOUNTER 2024-11-22 18:19 | Emergency (ER) | payer MEDICARE, BC, SELFPAY ==
[2024-11-22 18:25] VITALS: BP 153/73
--- NOTE | 2024-11-22 22:51 | ED.MUSCINJ ---
HPI-Injury
<Amber Luong NP - Last Filed: 11/22/24 23:46>
General
Chief Complaint: Musculo-Skeletal Complaint
Source: patient
Exam Limitations: none
Time Seen by Provider: 11/22/24 19:38
Nursing documentation reviewed up to this point in time: agreed with
History of Present Illness-Injury
Is this injury a work related problem?: No
Is pt an associate of [facility]?: No
Initial Injury comments:
Patient to ED with complaint of right hip and thigh pain. States pain started on THurs after 'slamming on breaks'. He is able to ambulate but with pain. States he had a 'hairline' hip fracture a few years ago and the pain is the same. Brought to
ED by family for eval.
Past History
<Amber Luong NP - Last Filed: 11/22/24 23:46>
Past History
ED Past Medical History: CAD, CVA (TIA), HTN, Hypercholesterolemia, OR, Seizures (History of from Hypoglycemia), Hypothyroidism and Other (Sciatica, Cellulitis, Rectal bleeding, Bowel obstruction, Vertigo,)
ED Past Surgical History: Cardiac (Stents X 1) and Other (Partial removal of Pancreas)
Social History
Tobacco: 2nd hand smoke exposure
Alcohol: None
Personal: Single
Living: with family
Employment: Disabled
Family History
Family History: Other
Review of Systems
<Amber Luong NP - Last Filed: 11/22/24 23:46>
Review of Systems
Allergies reviewed?: Yes
All Other Systems: ROS reviewed and negative except as documented in HPI and ROS
Constitutional: Reports no symptoms
EENT: Reports no symptoms
Respiratory: Reports no symptoms
Cardiac: Reports no symptoms
ABD/GI: Reports no symptoms
Musculoskeletal: Reports joint pain (Pain to right hip and femur)
Skin: Reports no symptoms
Neurological: Reports no symptoms
Psychiatric: Reports no symptoms
Musculoskeletal Injury Exam
<Amber Luong NP - Last Filed: 11/22/24 23:46>
Musculoskeletal Injury Exam
Right Hip:
Pain with Movement?: Moderate
Tender to palpation?: None
Soft tissue swelling?: None
External deformity and angulation?: None
Joint effusion?: None
Contusion?: None
Hematoma-local bleeding into tissue?: None
Strain- Sprain- Tear (Connective tissue injury)?: Moderate
Crepitus with movement?: No
Joint instability?: No
Malalignment/deformity?: No
Range of motion: Limited
Distal skin color and temperature: normal-warm & good color
Capillary Refill: normal
Normal distal neurovascular exam?: Yes
Right Thigh:
Pain with Movement?: Moderate
Tender to palpation?: None
Soft tissue swelling?: None
External deformity and angulation?: None
Joint effusion?: None
Contusion?: None
Hematoma-local bleeding into tissue?: None
Strain- Sprain- Tear (Connective tissue injury)?: Moderate
Crepitus with movement?: No
Joint instability?: No
Malalignment/deformity?: No
Range of motion: Limited
Distal skin color and temperature: normal-warm & good color
Capillary Refill: normal
Normal distal neurovascular exam?: Yes
Phy Exam
<Amber Luong NP - Last Filed: 11/22/24 23:46>
General Physical Exam
General Presentation: well appearing and no apparent distress
General age: appears stated age
General Skin: warm and dry
General Habitus: normal
Musculoskeletal Exam
Musculoskeletal Exam: neuro vasc intact
Skin Exam
Skin Exam: normal color, warm/dry and no rash
Psychiatric Exam
Psychiatric Exam: normal mood/affect
Injury Course
<Amber Luong PRINCIPAL NETWORK ARCHITECT - Last Filed: 11/22/24 23:46>
Orders/Labs/Results
Orders:
Orders
11/22/24 19:43
Femur, Right 2 View [CR Femur - Right Min 2 Vw] Urgent
Comment:
Reason For Exam: pain
Hip, Right 2-3 Views [CR Hip - RT w/wo Pel 2-3 Vw*] Urgent
Comment:
Reason For Exam: pain
Include a pelvis x-ray?: Yes
11/22/24 21:[address] [CT Pelvis W/o Iv Contrast] Urgent
Comment:
Reason For Exam: right hip pain, fall, hx acetab. fx
<Lionel Delcid DO - Last Filed: 11/23/24 00:09>
Orders/Labs/Results
Orders:
Orders
11/22/24 19:43
Femur, Right 2 View [CR Femur - Right Min 2 Vw] Urgent
Comment:
Reason For Exam: pain
Hip, Right 2-3 Views [CR Hip - RT w/wo Pel 2-3 Vw*] Urgent
Comment:
Reason For Exam: pain
Include a pelvis x-ray?: Yes
11/22/24 21:[address] [CT Pelvis W/o Iv Contrast] Urgent
Comment:
Reason For Exam: right hip pain, fall, hx acetab. fx
<DO Danielle Sinclair Filed: 11/23/24 00:09>
Update Note
Update Note:
IMPRESSION:
Osteopenia which limits sensitivity for nondisplaced fractures
No appreciable fracture. No osseous malalignment
Severe degenerative changes bilateral hips
Degenerative and DISH type changes in the visualized lower lumbar spine
Ankylosis bilateral SI joints
Note: If high clinical suspicion for occult fracture, consider further evaluation with MRI
ED Attending Note
<Amber Luong NP - Last Filed: 11/22/24 23:46>
-
Portions of this chart may have been created with voice recognition software.� Occasional wrong word or��sound alike� substitutions may have occurred due to the inherent limitations of voice recognition software.
Discharge Plan
Departure
Patient Disposition: Home (Routine Discharge)
Date of Disposition: 11/23/24
Time of Disposition: 00:08
Patient with high blood pressure during this ER visit?: No
Condition: Good
Covid-19: Not Applicable
Discharge Problem:
Sprain of hip
Instructions: Sprain (DC), Ibuprofen, Using Cold for Pain
Prescriptions:
No Action
levothyroxine 200 MCG tablet
200 mcg PO DAILY
atenolol 25 MG tablet
25 mg PO HS
amlodipine 10 MG tablet
10 mg PO HS
hydrocortisone 10 MG tablet
20 mg PO DAILY
testosterone cypionate 200 MG/ML oil
0.25 ml IM Q2W
calcium carbonate-vitamin D3 [Oyster Shell Calcium-Vit D3] 500 MG tablet
1 tab PO BID
phenobarbital 64.8 MG tablet
129.6 mg PO HS
Patient Comments:
12/04/2023: last filled 11/18/23, 180 tabs for 90 days from [facility]
clopidogrel 75 MG tablet
75 mg PO DAILY Qty: 30 5RF
nitroglycerin 0.4 MG tablet, sublingual
0.4 mg sublingual [id number] PRN (Reason: chest pain) Qty: 25 5RF
pantoprazole 40 MG tablet,delayed release (DR/EC)
40 mg PO DAILY
guar gum 1 PKT packet
1 tsp PO DAILY
Folbic 1 EACH tablet
1 tab PO DAILY
carbamazepine [Tegretol XR] 100 mg tablet extended release 12 hr
200 mg PO DAILY
Rx Instructions:
*BRAND ONLY*
carbamazepine [Tegretol XR] 100 mg tablet extended release 12 hr
100 mg PO QPM
Rx Instructions:
*BRAND ONLY*
carbamazepine [Tegretol XR] 400 mg tablet extended release 12 hr
400 mg PO BID@0800,1700
Rx Instructions:
*BRAND ONLY*
lisinopril 10 mg tablet
10 mg PO BID
rosuvastatin 40 mg tablet
40 mg PO DAILY
guaifenesin [Siltussin SA] 100 mg/5 mL Liquid
200 mg PO TID Qty: 0 0RF
benzonatate 100 mg Capsule
200 mg PO TIDPRN PRN (Reason: cough) Qty: 0 0RF
Chloraseptic Sore Throat 6-10 mg Lozenge
1 sam PO Q4HPRN PRN (Reason: sore throat) Qty: 0 0RF
Referrals:
Jean Carlos Frazier MD [Family Provider] - Follow up in 2-3 days
Kofi Ferris MD [Active] - (Follow up if your symptoms do not improve over the next week.)
Interventions
Interventions:
*Risk Screen - Suicide Last Done: 11/22/24 23:11
*General Assessment Last Done: 11/22/24 21:00
*Neglect/Abuse Screening Last Done: 11/22/24 21:00
*ED COVID-19 Vaccine History Last Done: 11/22/24 23:11
ED-Musculoskeletal Assessment Last Done: 11/22/24 21:00
Discharge Date and Time
Print Language: JAPANESE
[2024-11-22 23:03] VITALS: BP 192/80
[2024-11-22 23:11] VITALS: BMI 26.2
== END 2024-11-23 00:40 | disposition home or self-care (01) ==
LOC: EMR 18:19
PROVIDERS: EMERGENCY PHYSICIAN Student in an Organized Health Care Education/Training Program; FAMILY PHYSICIAN Internal Medicine
DX: S73.101A Unspecified sprain of right hip, initial encounter (principal); X58.XXXA Exposure to other specified factors, initial encounter; I25.10 Atherosclerotic heart disease of native coronary artery without angina pectoris; I10 Essential (primary) hypertension; E78.00 Pure hypercholesterolemia, unspecified; E03.9 Hypothyroidism, unspecified; Z86.73 Personal history of transient ischemic attack (TIA), and cerebral infarction without residual deficits; Z77.22 Contact with and (suspected) exposure to environmental tobacco smoke (acute) (chronic); Z95.5 Presence of coronary angioplasty implant and graft
CPT/HCPCS: 99284; 72192; 73502; 73552

== ENCOUNTER 2025-05-10 13:40 | Emergency (ER) | payer MEDICARE, BC, SELFPAY ==
[2025-05-10 13:45] VITALS: BP 139/72
[2025-05-10 14:05] LABS: Hematocrit 36.7 % (39.0-52.0); Hemoglobin 13.0 g/dL (13.0-18.0); Mean Corp Hgb Conc. 35.4 g/dL (33.0-37.0); Mean Corpuscular Volume 94.1 fL (80.0-94.0); Nucleated Red Blood Cells % 0 % (-); Platelet Count 208 10^3/uL (130-400); Red Cell Dist. Width 11.7 % (11.5-14.5)
[2025-05-10 14:26] LABS: ALT (SGPT) 23 U/L (0-50); AST (SGOT) 29 U/L (17-59); Albumin 4.6 g/dl (3.5-5.0); Alkaline Phosphatase 89 U/L (38-126); Blood Urea Nitrogen 24 mg/dl (9-20); Calcium 9.2 mg/dl (8.4-10.2); Carbon Dioxide 29 mmol/L (22-30); Chloride 100 mmol/L (98-107); Glucose 102 mg/dl (70-99); Potassium 4.8 mmol/L (3.5-5.1); Sodium 136 mmol/L (135-145); Total Protein 7.6 g/dl (6.3-8.2); eGFR > 60.00
[2025-05-10 16:18] VITALS: BP 197/95
[2025-05-10] MEDS: NSS 1000 IV (17:49)
--- NOTE | 2025-05-10 18:31 | ED.GENMED ---
History of Present Illness
General
Chief Complaint: Weakness
Source: patient
Exam Limitations: none
Time Seen by Provider: 05/10/25 15:51
Nursing documentation reviewed up to this point in time: agreed with
History of Present Illness
History of Present Illness:
see MDM
Past History
Past History
ED Past Medical History: CAD, CVA (TIA), HTN, Hypercholesterolemia, RI, Seizures (History of from Hypoglycemia), Hypothyroidism and Other (Sciatica, Cellulitis, Rectal bleeding, Bowel obstruction, Vertigo,)
ED Past Surgical History: Cardiac (Stents X 1) and Other (Partial removal of Pancreas)
Social History
Tobacco: 2nd hand smoke exposure
Alcohol: None
Personal: Single
Living: with family
Employment: Disabled
Family History
Family History: Other
Phy Exam
Physical Exam
Physical Exam:
see Júnior HEALY
Course
Orders/Labs/Results
Orders:
Orders
05/10/25 13:47
Electrocardiogram (*1) Urgent
Reason for Study: Fatigue / Weakness
EKG- Treatment ONCE
05/10/25 14:00
Complete Blood Count/With Diff Urgent
Comprehensive Metabolic Panel Urgent
Free T4 Urgent
TSH Reflex To Free T4 Urgent
Comment: ADD ON
05/10/25 16:15
Add On- LAB Urgent
Tests Added?: tsh reflex t4
0.9% Sodium Chloride 1000 ml [Nss] 1,000 ml IV BOLUS
05/10/25 16:20
CT Head W/o Iv Contrast Urgent
Comment:
Reason For Exam: fell hit head
05/10/25 16:44
Lyme Progressive Urgent
Phenobarbital [S] Urgent
Tegretol (Carbamazepine) Urgent
05/10/25 18:30
Urinalysis Reflex To Culture Urgent
Date Specimen was Collected: 05/10/25
Time Specimen was Collected: 18:28
Urine Microscopic Reflex Cult Urgent
Abnormal Lab Results
05/10/25 05/10/25 05/10/25
14:00 16:44 18:30
RBC 3.90 L 10^6/uL
(4.70-6.10)
Hct 36.7 L %
(39.0-52.0)
MCV 94.1 H fL
(80.0-94.0)
MCH 33.3 H pg
(27.0-31.0)
Absolute Lymphs (auto) 0.7 L 10^3/uL
(1.2-3.4)
Neutrophils % 80.3 H %
(42.2-75.2)
Lymphocytes % 11.2 L %
(20.5-51.1)
BUN 24 H mg/dl
(9-20)
Glucose 102 H mg/dl
(70-99)
TSH (Reflex) < 0.02 L uIU/ml
(0.47-4.68)
Urine Bacteria (Reflex) Few A
(Negative)
Urine Albumin (Reflex) 1+ A
(Neg - Trace)
Carbamazepine 14.2 H* ug/ml
(4-12)
05/10/25 14:00
05/10/25 14:00
Vital Signs
Initial and Last Documented VS:
Initial Vital Signs
Temp Pulse Resp BP Pulse Ox
36.8 C 67 16 139/72 98
05/10/25 13:45 05/10/25 13:45 05/10/25 13:45 05/10/25 13:45 05/10/25 13:45
Last Documented Vital Signs
Temp Pulse Resp BP Pulse Ox
36.8 C 66 20 197/95 99
05/10/25 13:45 05/10/25 17:45 05/10/25 16:18 05/10/25 16:18 05/10/25 18:32
MDM/Problems Addressed
Differential Diagnosis Includes:
see MDM
MDM/Problems Addressed:
Note:
CHIEF COMPLAINT(S)
Feeling washed out and having difficulties with balance.
HISTORY OF PRESENT ILLNESS
The patient is a 65-year-old male with a history of medication issues related to Tegretol (carbamazepine). Initially, in early April, the patient was switched from Tegretol XR to a generic formulation due to supply and insurance issues. After
switching, the patient experienced significant dizziness and balance issues, leading to two falls. The first fall occurred soon after switching to the generic formulation, and the second fall, approximately two weeks later, was due to an
imperfection in the carpet. Both events resulted in difficulty getting up from the floor and the latter involved the patient hitting their head on the floor. The patient reports that since switching back to Tegretol XR on May 01, the symptoms of
feeling washed out, having low energy, and balance issues have persisted, particularly intensifying over the weekend prior to the visit. There is also a noted history of adrenal insufficiency diagnosed in February 2012, managed with hydro-cortisone,
which the patient has been compliant with.
he has not had recent illness
he denies tick bites
no fever/chills/chest dajuan/sob, diarrhea, vomiting, focal weakness, confusoin
he says he is here today thinking he should just finally get this looked at and wasn't here because there is any more symptoms today than earlier
he was initially very apprehensive to let me perform any additional testing, worried abuot financial cost
PAST MEDICAL AND SURIGICAL HISTORY
The patient has a history of adrenal insufficiency diagnosed in February 2012.
SOCIAL HISTORY
The patient lives alone, in what is described as a 'hole in the wall' and administers their own medications.
REVIEW OF SYSTEMS
- General: Feeling washed out, low energy, specifically starting from the medication change back in early April.
- Neurological: Reports feeling off balance and having fallen twice. No seizures reported.
- Gastrointestinal: Occasional diarrhea but none today.
- Musculoskeletal: Weakness in the legs while walking but generalized;
- Cardiovascular: History of heart attack, past chest pain.
- Dermatological: No recent tick bites or history of Lyme disease.
PHYSICAL EXAM
- Nursing notes reviewed and vital signs reviewed.
GENERAL: Alert , in no apparent distress
HEAD: NCAT
EYE: pupils equal and reactive, no nystagmus, no photophobia
NECK: Supple,full rom, nontender
ENT: o/p clr, mmm.
CARDIAC: Regular rate and rhythm . no edema
LUNGS: Clear breath sounds bilaterally, no acute respiratory distress, no wheezes/rales/rhonchi
ABDOMEN: Soft, without focal tenderness, no r/g, no cvat
NEUROLOGICAL: Alert and orientedx 4, cn intact, no facial asymmetry, 5/5 strength in UE/LE, sensation intact, romberg neg, ambulates without assistance, neg pronator drift
SKIN: Warm and dry, skin intact.
MUSCULOSKELETAL: No edema, well perfused.
PSYCH: Normal and appropriate interaction. slightly strange affect
PLAN
1. Perform blood tests to evaluate potential causes for the patients symptoms, including Tegretol (carbamazepine) levels, which will be a send-out test and not immediately available.
2. Consider consultation with the patients neurologist, Dr. Michi Street, regarding possible medication issues.
3.doubt this is adrenal insufficiency with elevated BP
pt says his BP is always elevated int [facility], 190/90 and this is not unusual and he doesnt beleive the machine. he is due for meds this evening
4. ct scan, for balance issues, fatigue, head strike
anticipate d/c
DIFFERENTIAL DIAGNOSIS
The Differential Diagnosis includes, in no particular order and is not limited to:
1. Adrenal insufficiency
2. Medication-related side effects (carbamazepine levels)
3. Neurological imbalance due to medication changes
4. Orthostatic hypotension
5. Vestibular dysfunction
6. Dehydration
7. Anemia
8. Hypoglycemia
9. Stroke or transient ischemic attack (less likely due to the nature of symptoms)
10. Cardiovascular event recurrence
65-year-old male with a history of strokes, epilepsy, [place], from [facility], adrenal insufficiency presenting for generalized fatigue over the last couple weeks which has been persistent over the last couple days leading for him to want to get
checked. Patient has not had specific symptoms other than feeling a little off balance. He thought it was related to his Tegretol being changed from the brand-name to a generic last month. He got back on the brand-name but has not changed his
dose but still feels like he is not himself. He did fall twice last month and did maybe hit his head but not hard enough to lose consciousness. He is not sure if this contributory. He has not been sick recently and he has been taking his
hydrocortisone. On exam the patient is very verbose about his symptoms being ongoing and not really acute is very confusing why the patient came here because initially he did not want to have any testing done and then he ultimately agreed but it
took several rounds of talking to him before he would ultimately agree. This point patient is hypertensive and I did speak with him about this but she says it is chronic for him in a hospital setting. Has no chest pain or shortness of breath and a
normal EKG is due for nighttime medications are not concerned about his blood pressure. I did not offer to CT his head to be sure that he did not have any signs of head trauma or stroke recently and he agreed to that. His urine is without
infection. His Tegretol level was minimally elevated and I spoke with Dr. Bee who is the neurologist on-call who recommended that he hold tonight's dose and then follow-up with his primary neurologist which he has an appointment with soon.
Patient also has subclinical hyperthyroidism, he is treated with Synthroid for hypothyroidism and his TSH is less than 0.02 but his free T4 is normal. He does require probably a med adjustment for that and I asked him to call his family doctor.
Pending CT scan patient will be discharged
*Pulse Oximetry
SaO2: 99
Oxygen Mode of Delivery: Room air
Patient hypoxic: no (98)
*Critical Care Note
Total Time (30-74mins, 75-104mins- exclusive of procedures): Not Applicable
ED Attending Note
-
Portions of this chart may have been created with voice recognition software.� Occasional wrong word or��sound alike� substitutions may have occurred due to the inherent limitations of voice recognition software.
Discharge Plan
Departure
Patient Disposition: Home (Routine Discharge)
Date of Disposition: 05/10/25
Time of Disposition: 20:19
Patient with high blood pressure during this ER visit?: Yes
Condition: Fair
Covid-19: Not Applicable
Discharge Problem:
Hypertension, Fatigue
Instructions: Generalized Weakness (DC), BLOOD PRESSURE
Prescriptions:
No Action
levothyroxine 200 MCG tablet
200 mcg PO DAILY
atenolol 25 MG tablet
25 mg PO HS
amlodipine 10 MG tablet
10 mg PO HS
hydrocortisone 10 MG tablet
20 mg PO DAILY
testosterone cypionate 200 MG/ML oil
0.25 ml IM Q2W
calcium carbonate-vitamin D3 [Oyster Shell Calcium-Vit D3] 500 MG tablet
1 tab PO BID
phenobarbital 64.8 MG tablet
129.6 mg PO HS
Patient Comments:
12/04/2023: last filled 11/18/23, 180 tabs for 90 days from [facility]
clopidogrel 75 MG tablet
75 mg PO DAILY Qty: 30 5RF
nitroglycerin 0.4 MG tablet, sublingual
0.4 mg sublingual [id number] PRN (Reason: chest pain) Qty: 25 5RF
pantoprazole 40 MG tablet,delayed release (DR/EC)
40 mg PO DAILY
guar gum 1 PKT packet
1 tsp PO DAILY
Folbic 1 EACH tablet
1 tab PO DAILY
carbamazepine [Tegretol XR] 100 mg tablet extended release 12 hr
200 mg PO DAILY
Rx Instructions:
*BRAND ONLY*
carbamazepine [Tegretol XR] 100 mg tablet extended release 12 hr
100 mg PO QPM
Rx Instructions:
*BRAND ONLY*
carbamazepine [Tegretol XR] 400 mg tablet extended release 12 hr
400 mg PO BID@0800,1700
Rx Instructions:
*BRAND ONLY*
lisinopril 10 mg tablet
10 mg PO BID
rosuvastatin 40 mg tablet
40 mg PO DAILY
guaifenesin [Siltussin SA] 100 mg/5 mL Liquid
200 mg PO TID Qty: 0 0RF
benzonatate 100 mg Capsule
200 mg PO TIDPRN PRN (Reason: cough) Qty: 0 0RF
Chloraseptic Sore Throat 6-10 mg Lozenge
1 sam PO Q4HPRN PRN (Reason: sore throat) Qty: 0 0RF
Referrals:
Jean Carlos Frazier MD [Family Provider, Internal Medicine] - Follow up in 5-7 days
Activity Restrictions/Additional Instructions:
Were not totally sure the cause of your symptoms. Your blood pressure was elevated today which she says is typical for you in a hospital setting. Please have this rechecked. Your Tegretol level was minimally elevated which could mean that you are
a little overmedicated. Skip tonight's dose and restart tomorrow and talk with your neurologist about this. Also your thyroid TSH was a little low but your free T4 was normal. This could mean that your Synthroid is a little too high. Call your
family doctor about reducing this.
We sent a test for Lyme disease just to be sure he did not have that. That will result in the next couple of days and we will call you if you need antibiotics.
Return for any worsening symptoms
Interventions
Interventions:
*Risk Screen - Suicide Last Done: 05/10/25 13:45
*General Assessment Last Done: 05/10/25 16:19
*Neglect/Abuse Screening Last Done: 05/10/25 13:45
*ED- Fall Risk Assessment Last Done: 05/10/25 16:19
*Nursing Disposition Last Done: 05/10/25 20:57
ED- Cardiac Assessment Last Done: 05/10/25 16:18
ED- Neurological Assessment Last Done: 05/10/25 16:18
ED- Pulmonary Assessment Last Done: 05/10/25 16:18
Discharge Date and Time
Discharge Date/Time: 05/10/25 20:57
Print Language: MONEGASQUE
[2025-05-10 18:57] LABS: Urine Character Clear (Clear)
[2025-05-10 19:07] LABS: Urine Red Blood Cell 0-2 /HPF (0-2); Urine Squamous Cell 0-2 /LPF (Few)
[2025-05-13 15:31] LABS: Lyme Antibody Screen, EIA Presump. Positive (Negative)
== END 2025-05-10 20:57 | disposition home or self-care (01) ==
LOC: EMR 13:40
PROVIDERS: Emergency Medicine; Physician Assistant; EMERGENCY PHYSICIAN Student in an Organized Health Care Education/Training Program; FAMILY PHYSICIAN Internal Medicine
DX: I10 Essential (primary) hypertension (principal); R53.83 Other fatigue; I25.10 Atherosclerotic heart disease of native coronary artery without angina pectoris; E78.00 Pure hypercholesterolemia, unspecified; I25.2 Old myocardial infarction; E03.9 Hypothyroidism, unspecified; E05.90 Thyrotoxicosis, unspecified without thyrotoxic crisis or storm; E27.40 Unspecified adrenocortical insufficiency; K86.81 Exocrine pancreatic insufficiency; Z79.02 Long term (current) use of antithrombotics/antiplatelets; Z95.5 Presence of coronary angioplasty implant and graft; Z86.73 Personal history of transient ischemic attack (TIA), and cerebral infarction without residual deficits; Z77.22 Contact with and (suspected) exposure to environmental tobacco smoke (acute) (chronic); Z90.411 Acquired partial absence of pancreas
CPT/HCPCS: 99284; 96360; 70450; 80053; 80156; 80184; 81003; 81015; 84439; 84443; 85025; 86617; 86618; 93005

== ENCOUNTER 2025-05-26 16:20 | Inpatient (IN) | payer MEDICARE, BC, SELFPAY ==
[2025-05-26 10:42] VITALS: BMI 28.8
[2025-05-26 10:45] VITALS: BP 170/71
[2025-05-26 11:47] VITALS: BP 165/70
[2025-05-26] MEDS: NSS 1000 IV (11:57)
[2025-05-26 12:17] LABS: Hematocrit 36.0 % (39.0-52.0); Hemoglobin 13.1 g/dL (13.0-18.0); Mean Corp Hgb Conc. 36.4 g/dL (33.0-37.0); Mean Corpuscular Volume 92.1 fL (80.0-94.0); Nucleated Red Blood Cells % 0 % (-); Platelet Count 203 10^3/uL (130-400); Red Cell Dist. Width 11.1 % (11.5-14.5)
--- NOTE | 2025-05-26 12:25 | ED.GENMED ---
History of Present Illness
General
Chief Complaint: Dizziness
Time Seen by Provider: 05/26/25 11:07
History of Present Illness
History of Present Illness:
65-year-old male with history of hypertension, hyperlipidemia, hypopituitarism with renal insufficiency, hypothyroidism presenting for concern of dehydration. Patient reports that he lives in [facility]. He does not have air conditioning in his
direct unit and last evening felt very warm. He reports that his whole body was warm and he had to urinate a lot. He is concerned that he is dehydrated. Denies recent fever. Denies chest pain or difficulty breathing. Does report some cramping
in his thighs. Denies any significant weakness. Denies chest pain or difficulty breathing. Denies any vomiting. Denies additional acute medical complaints.
Past History
Past History
ED Past Medical History: CAD, CVA (TIA), HTN, Hypercholesterolemia, VT, Seizures (History of from Hypoglycemia), Hypothyroidism and Other (Sciatica, Cellulitis, Rectal bleeding, Bowel obstruction, Vertigo,)
ED Past Surgical History: Cardiac (Stents X 1) and Other (Partial removal of Pancreas)
Social History
Tobacco: 2nd hand smoke exposure
Alcohol: None
Personal: Single
Living: with family
Employment: Disabled
Family History
Family History: Other
Phy Exam
Physical Exam
Physical Exam:
General: Well-appearing, no clinical signs of dehydration, nontoxic and in no acute distress
HEENT: protecting airway
Neck: appears supple
CV: Normal heart rate, regular rhythm
Resp: No accessory muscle use, no increased work of breathing, lungs clear to auscultation bilaterally
Abd: Soft and non-distended, no tenderness to palpation
Extremities: No deformities, no swelling
Neuro: alert, no focal neurologic deficit
: deferred
Rectal: deferred
Psych: Normal affect
Skin: Intact
Course
Orders/Labs/Results
Orders:
Orders
05/26/25 11:44
0.9% Sodium Chloride 1000 ml [Nss] 1,000 ml IV BOLUS
05/26/25 11:56
CPK [Creatine Phosphokinase] Urgent
Complete Blood Count/With Diff Urgent
Comprehensive Metabolic Panel Urgent
Lipase Urgent
Urinalysis Reflex To Culture Urgent
Date Specimen was Collected: 05/26/25
Time Specimen was Collected: 11:48
Urine Microscopic Reflex Cult Urgent
Abnormal Lab Results
05/26/25
11:56
RBC 3.91 L 10^6/uL
(4.70-6.10)
Hct 36.0 L %
(39.0-52.0)
MCH 33.5 H pg
(27.0-31.0)
RDW 11.1 L %
(11.5-14.5)
Absolute Lymphs (auto) 0.9 L 10^3/uL
(1.2-3.4)
Neutrophils % 77.8 H %
(42.2-75.2)
Lymphocytes % 10.7 L %
(20.5-51.1)
Sodium 126 L mmol/L
(135-145)
Chloride 90 L mmol/L
(98-107)
BUN 22 H mg/dl
(9-20)
Urine Bacteria (Reflex) Few A
(Negative)
Urine Albumin (Reflex) 1+ A
(Neg - Trace)
05/26/25 11:56
05/26/25 11:56
Vital Signs
Initial and Last Documented VS:
Initial Vital Signs
Temp Pulse Resp BP Pulse Ox
98.0 F 57 16 170/71 100
05/26/25 10:45 05/26/25 10:45 05/26/25 10:45 05/26/25 10:45 05/26/25 10:45
Last Documented Vital Signs
Temp Pulse Resp BP Pulse Ox
98 F 61 12 165/70 100
05/26/25 12:04 05/26/25 11:48 05/26/25 12:04 05/26/25 11:47 05/26/25 13:09
MDM/Problems Addressed
MDM/Problems Addressed:
65-year-old male with history of hypertension, hyperlipidemia, hypopituitarism with adrenal insufficiency presenting for concern of dehydration and episode of overheating. Vital signs are significant for mild hypertension.
On exam patient is resting comfortably, no acute distress or discomfort. Unremarkable cardiac, pulmonary, abdominal exam. No hemodynamic instability. No fever. Patient nontoxic. He is requesting fluids, feels dehydrated given episode of over
heaving last evening. Will screen with laboratory analysis and treat with IV fluids.
14:50 - Labs show hyponatremia, which patient has had in the past however, more profound today. On recent hospital visit on 05/09, normal at 136. Patient is urinating frequently at bedside with concern for hypovolemic hyponatremia. Patient had
similar admission and issue in 2021 due to his adrenal insufficiency which could be contributing to today's symptoms. Patient ambulated. Notes that he feels very unsteady. Patient in independent living. For his reason we will admit for
dehydration and hyponatremia
*Pulse Oximetry
SaO2: 100
Oxygen Mode of Delivery: Room air
Patient hypoxic: no
*Critical Care Note
Total Time (30-74mins, 75-104mins- exclusive of procedures): Not Applicable
ED Attending Note
-
Portions of this chart may have been created with voice recognition software.� Occasional wrong word or��sound alike� substitutions may have occurred due to the inherent limitations of voice recognition software.
Discharge Plan
Departure
Prescriptions:
No Action
levothyroxine 200 MCG tablet
200 mcg PO DAILY
atenolol 25 MG tablet
25 mg PO HS
amlodipine 10 MG tablet
10 mg PO HS
hydrocortisone 10 MG tablet
20 mg PO DAILY
testosterone cypionate 200 MG/ML oil
0.25 ml IM Q2W
calcium carbonate-vitamin D3 [Oyster Shell Calcium-Vit D3] 500 MG tablet
1 tab PO BID
phenobarbital 64.8 MG tablet
129.6 mg PO HS
Patient Comments:
12/04/2023: last filled 11/18/23, 180 tabs for 90 days from [facility]
clopidogrel 75 MG tablet
75 mg PO DAILY Qty: 30 5RF
nitroglycerin 0.4 MG tablet, sublingual
0.4 mg sublingual [id number] PRN (Reason: chest pain) Qty: 25 5RF
pantoprazole 40 MG tablet,delayed release (DR/EC)
40 mg PO DAILY
guar gum 1 PKT packet
1 tsp PO DAILY
Folbic 1 EACH tablet
1 tab PO DAILY
carbamazepine [Tegretol XR] 100 mg tablet extended release 12 hr
200 mg PO DAILY
Rx Instructions:
*BRAND ONLY*
carbamazepine [Tegretol XR] 100 mg tablet extended release 12 hr
100 mg PO QPM
Rx Instructions:
*BRAND ONLY*
carbamazepine [Tegretol XR] 400 mg tablet extended release 12 hr
400 mg PO BID@0800,1700
Rx Instructions:
*BRAND ONLY*
lisinopril 10 mg tablet
10 mg PO BID
rosuvastatin 40 mg tablet
40 mg PO DAILY
guaifenesin [Siltussin SA] 100 mg/5 mL Liquid
200 mg PO TID Qty: 0 0RF
benzonatate 100 mg Capsule
200 mg PO TIDPRN PRN (Reason: cough) Qty: 0 0RF
Chloraseptic Sore Throat 6-10 mg Lozenge
1 sam PO Q4HPRN PRN (Reason: sore throat) Qty: 0 0RF
Referrals:
Jean Carlos Frazier MD [Family Provider, Internal Medicine]
Interventions
Interventions:
*Risk Screen - Suicide Last Done: 05/26/25 11:58
*General Assessment Last Done: 05/26/25 11:58
*Neglect/Abuse Screening Last Done: 05/26/25 11:58
*ED- Fall Risk Assessment Last Done: 05/26/25 11:58
ED- Neurological Assessment Last Done: 05/26/25 11:58
ED Swallowing Screen Last Done: 05/26/25 11:58
Discharge Date and Time
Print Language: TURKMEN
[2025-05-26 12:37] LABS: Urine Character Clear (Clear)
[2025-05-26 12:41] LABS: ALT (SGPT) 24 U/L (0-50); AST (SGOT) 30 U/L (17-59); Albumin 4.5 g/dl (3.5-5.0); Alkaline Phosphatase 107 U/L (38-126); Blood Urea Nitrogen 22 mg/dl (9-20); Calcium 9.4 mg/dl (8.4-10.2); Carbon Dioxide 29 mmol/L (22-30); Chloride 90 mmol/L (98-107); Estimated Creatinine Clearance 64 ml/min; Glucose 84 mg/dl (70-99); Lipase 67 U/L (23-300); Potassium 4.6 mmol/L (3.5-5.1); Sodium 126 mmol/L (135-145); Total Protein 7.6 g/dl (6.3-8.2); eGFR > 60.00
[2025-05-26 12:55] LABS: Urine Red Blood Cell 0-2 /HPF (0-2); Urine Squamous Cell 0-2 /LPF (Few); Urine White Cell 0-2 /HPF (0-5)
[2025-05-26 15:02] VITALS: BP 168/75
--- NOTE | 2025-05-26 15:11 | HPS.HSE ---
Family Physician
-
Family Physician: Jean Carlos Frazier
Chief Complaint
-
Dizziness, feeling hot, increase water intake, confusion
History of Present Illness
65-year-old male from [facility] who states he felt warm yesterday due to not having air conditioning. The patient reports he has been living at [facility] 2 and half years he has not purchased an air conditioner and he is not using a fan. He
has telephone numbers to contact to get this but states he has not gotten around to doing this. I made sure the patient is aware since living on the fifth floor this is a danger to his health he states yesterday during the day he is unsure how much
milk and water plus orange juice he drank however starting at 9 PM every single hour until 730 this morning he was drinking 8+ ounces for total greater than 80 ounces in 10 hours of water due to feeling hot. He also states around 1 to 2 AM he got
up and he felt off balance so he was using his walker. He states after drinking he had frequent urination. He does not believe drinking liquids will harm him. I made him aware to contact the office and agency on aging to help him get air
conditioning and/or a fan I also made him aware of water intoxication.
He also reports increased urination was concerned he was dehydrated due to cramping in his thighs and weakness. He denies fever, sore throat, blurred vision, headache, chest pain, palpitations, cough, shortness of breath, abdominal pain, nausea,
vomiting, diarrhea, urinary symptoms.
He has past medical history CAD status post stent, Hypopituitarism,Adrenal insufficiency,Gastric varices,HTN,HLD, Hypoglycemia with seizures,Hypothyroidism, Partial pancreas removal, COVID-19 infection November 2023 treated with
Molnupiravir/Levaquin in hospital due to right sided infiltrate
Medical History
Past Medical History
Past Medical History: Reports Other
Additional Past Medical History:
CAD status post stent
Hypopituitary is him
Adrenal insufficiency
Gastric varices
HTN
HLD
Hypoglycemia with seizures
Hypothyroidism
Partial pancreas removal
COVID-19 infection November 2023 treated with Molnupiravir/Levaquin in hospital due to right sided infiltrate
Past Surgical History: Reports Other
Additional Past Surgical History:
Sinus surgery
Partial
pancreas removed this child
multiple endoscopies
Multiple colonoscopies
Cardiac stent 2019
Social History
Tobacco: Non-smoker
Alcohol: None
Drug: None
Personal: Single
Living: Alone ([facility])
Employment: Retired
Family History
Family History: Not pertinent
Allergies / Home Medications
Allergies reflects when Allergies were last updated in [employer].
Home Medications with original date entered in [employer]
Allergy/Medication List:
Allergies
Allergy/AdvReac Type Severity Reaction Status Date / Time
acetaminophen (From Tylenol Allergy hallucinati Verified 05/26/25 10:47
PM) ons
amoxicillin (Amoxicillin) Allergy nightmares Verified 05/26/25 10:47
cephalexin monohydrate (From Allergy 'unspecified Verified 05/26/25 10:47
Keflex) side
effects'
cyclobenzaprine Allergy Unknown Verified 05/26/25 10:47
(Cyclobenzaprine)
diphenhydramine HCl (From Allergy hallucinati Verified 05/26/25 10:47
Tylenol PM) ons
erythromycin base Allergy 'does not Verified 05/26/25 10:47
(Erythromycin Base) mix with
tegretol'
metformin Allergy Unknown Verified 05/26/25 10:47
methylprednisolone Allergy dizziness? Verified 05/26/25 10:47
naproxen (From Aleve) Allergy Unknown Verified 05/26/25 10:47
sertraline Allergy Unknown Verified 05/26/25 10:47
[id number]-[id number]-[id number] Reductase Allergy Unknown Verified 08/20/25 10:47
Inhibitor (Lvruomm-[id number]-Vcq
Reductase Inhibitor)
Tetracyclines Allergy nightmares Verified 05/26/25 10:47
Home Medications
levothyroxine 200 mcg tablet 200 mcg PO DAILY Thyroid 02/19/15
amlodipine 10 mg tablet 10 mg PO HS Blood pressure 09/28/18
calcium 500 mg (as carbonate)-vitamin D3 5 mcg (200 unit) tablet (Oyster Shell Calcium-Vitamin D3) 1 tab PO BID Supplement 03/18/20
hydrocortisone 10 mg tablet 20 mg PO DAILY ADRENAL INSUFFICIENCY 03/18/20
testosterone cypionate 200 mg/mL intramuscular oil 0.25 ml IM Q2W LOW TESTOSTERONE 03/18/20
phenobarbital 64.8 mg tablet 129.6 mg PO HS Seizures 10/03/20
clopidogrel 75 mg tablet 75 mg PO DAILY #30 tabs 10/05/20
pantoprazole 40 mg tablet,delayed release 40 mg PO DAILY Gastrointestinal issue 10/26/20
folic acid-vit B6-vit B12 2.5 mg-25 mg-2 mg tablet (Folbic) 1 tab PO DAILY@1200 Supplement 12/21/20
carbamazepine 100 mg tablet,extended release,12 hr (Tegretol XR) 100 mg PO QPM Seizures 12/04/23
carbamazepine 100 mg tablet,extended release,12 hr (Tegretol XR) 200 mg PO DAILY Seizures 12/04/23
carbamazepine 400 mg tablet,extended release,12 hr (Tegretol XR) 400 mg PO BID@0800,1700 Seizures 12/04/23
lisinopril 10 mg tablet 10 mg PO BID Blood Pressure 12/04/23
rosuvastatin 40 mg tablet 40 mg PO DAILY High Cholesterol 12/04/23
ezetimibe 10 mg tablet (Zetia) 10 mg PO DAILY 05/26/25
guar gum 0.5 packet PO DAILY 05/26/25
Review of Systems
-
History Source: Patient
A 12 point ROS was completed and negative except as noted: Yes
Constitutional: Reports Other (Patient reports feeling hot); Denies Fever or Chills
EENT: Denies Sore Throat or Runny Nose
Respiratory: Denies Cough or Trouble Breathing
Cardiac: Denies Chest Pain, Diaphoresis, Palpitations or Syncope
Abdomen/GI: Denies Abdominal Pain, Nausea, Vomiting, Diarrhea, Constipated or Bloody Stools
: Reports Frequency (Due to excess water intake); Denies Dysuria, Flank Pain, Incontinence or Difficulty Voiding
Musculoskeletal: Denies Joint Pain or Edema
Skin: Denies Itching or Rash
Neurological: Reports Dizzy (Off balance 1 to 2 AM with walker); Denies Headache or Weakness
Endocrine: Reports No Symptoms
Hematologic/Lymphatic: Reports No Symptoms
Psych: Reports Calm
Physical Exam
Vital Signs
Vital Signs
Temp Pulse Resp BP Pulse Ox
98 F 61 12 165/70 100
05/26/25 12:04 05/26/25 11:48 05/26/25 12:04 05/26/25 11:47 05/26/25 13:09
Physical Exam
General: No Pain, Fever or Chills
HEENT: NormoCephalic, Anicteric, PERRLA, [place] Conjunctivae, No Ptosis and Other (Dry oral mucosa)
Respiratory: Clear; No Wheezes, Rales or Rhonchi
Cardiac: S1/S2 and Regular Rhythm; No Murmur, Rub, Gallop or Peripheral Edema
Breast: Deferred by me
GI: Soft, Non Tender, Non Distended, Normal Bowel Sounds and No Hepatosplenomegaly
Rectal: Deferred by Provider
Genito-urinary: Deferred by me
Musculoskeletal: No Clubbing, No Cyanosis and No Edema
Skin: Warm and Dry; No Rash or Jaundice
Neuro: AO x 3, No Motor Deficits, Nonfocal/grossly intact, Cranial Nerves Intact and No Sensory Deficits; No Slurred Speech, Facial Droop, Tremors or Sedated
Psych: Calm
Laboratory Results
-
05/26/25 11:56
05/26/25 11:56
Laboratory Results
Total Bilirubin 0.7 mg/dl (0.2-1.3) 05/26/25 11:56
AST 30 U/L (17-59) 05/26/25 11:56
ALT 24 U/L (0-50) 05/26/25 11:56
Alkaline Phosphatase 107 U/L (38-126) 05/26/25 11:56
Lipase 67 U/L (23-300) 05/26/25 11:56
Data Reviewed
-
Lab Data: Labs Reviewed by me
Impression/Plan
-
Impression/plan:
Admit to telemetry
#Symptomatic hyponatremia unclear possible water intoxication
Increased urination, weakness, confusion fatigue
Drank in excess of 80 ounces of water in a 9-hour. Not including daytime liquid intake patient is unsure of
-Patient counseled on excess water intake
NA 126 was 136 on 05/09/2025
-Check urinalysis
-Check urine NA, urine Osmo, serum Osmo, TSH with free T4 reflex
-Will fluid restrict
-Consult nephro
- Check CT head
#Hypopituitarism
-Continue hydrocortisone 20 mg daily
-Patient on testosterone injections
#Hypothyroidism
-Check TSH and free T4 reflex
-Continue levothyroxine
#History of seizure
#History of seizures also secondary to hypoglycemia
-Continue carbamazepine, phenobarbital
- Check Tegretol level
#CAD status post stent
-Continue Plavix
#History of CVA
-Continue Plavix, statin
#Essential hypertension
BP 165/70
-Continue amlodipine, atenolol, lisinopril
#Hypercholesterolemia
Continue Crestor 40 mg daily
#GERD
#History of gastric varices
-Continue Protonix
#Sciatica
#History of bowel obstruction
#Partial removal of pancreas as child
#COVID-19 infection November 2023 treated with Molnupiravir/Levaquin in hospital due to right sided infiltrate
DVT prophylaxis
Subcu Lovenox
Full code
--- NOTE | 2025-05-26 15:15 | W.PN.UPDATE ---
Addendum entered and electronically signed by Bindu Kyle MD 05/26/25 16:12:
CT Head ordered
Original Note:
Update Note
Progress Note Update
This is an addendum to H&P written by DATA ANALYSIS ASSISTANT Shelby Vázquez
I saw and examined the patient.
The DATA ANALYSIS ASSISTANT's note was reviewed and I agree with the note.
Comment:
Mr. Gaurav Brown is a 65 yo man with hx essential HTN, HLD, hypopituitarism, hypothyroidism, CKD, seizures, resident of [facility] presents to the ER with concern of dehydration after an evening of no AC. Patient reports drinking a lot of
water starting at 1AM.
Triage VS: T 98, P 57, RR 16, BP 170/71, SpO2 100%
On exam patient is awake, alert, no focal deficits, tangential in speech. Lungs clear. Abdomen, soft, non-tender. No LE swelling.
LABS: Na 126, K+ 4.6, Cl 90, CO2 29, BUN 22, Cr 1.0, Glucose 84, Ca 9.4, T. Bili 0.7, AST 30, ALT 24, Alk Phos 107
Hyponatremia
-although patient reports drinking a lot of free water, he has elevated urine osmol and sodium concerning more for SIADH. K normal, bP normal, he's not showing other signs of adrenal insufficiency
-admit to telemetry
-fluid restriction
-Renal consult
Hypopituitarism on Hydrocortisone
-continue OPTIMIZATION CONSULTANT Hydrocortisone
-on testosterone injections as outpatient
Hypothyroidism - OPTIMIZATION CONSULTANT Synthroid
-F/U TSH level
Essential HTN
-OPTIMIZATION CONSULTANT Lisinopril, Amlodipine
Hx Epilepsy
-OPTIMIZATION CONSULTANT Phenobarbital, Carbamazepine
Hyperlipidemia - OPTIMIZATION CONSULTANT Ezetimibe, Statin
GERD - OPTIMIZATION CONSULTANT Protonix
DVT PPx Lovenox subQ
FULL CODE
76 minutes spent on patient care
[2025-05-26 16:08] LABS: Magnesium 2.0 mg/dl (1.6-2.3)
--- NOTE | 2025-05-26 16:11 | W.CON.NEPH ---
Consultation
-
Date/Time Consultation Requested: 05/26/2025 4:00 PM
Date/Time Consultation Performed: 05/26/2025 4:00
Requesting Provider: Dr. Kyle
Performing Provider: Dr. Galeana
Reason for Consultation: Hyponatremia
Medical History
-
Chief Complaint: Hyponatremia
History of Present Illness:
The patient is a 65-year-old male with a past medical history of hypertension maintained on amlodipine and lisinopril. He has a history of seizure disorder and is maintained on phenobarbital as well as Tegretol. He has a listed history of adrenal
insufficiency and maintained on hydrocortisone and has remained on levothyroxine for hypothyroidism. The patient reports he has been living at [facility] 2 and half years he has not purchased an air conditioner and he is not using a fan. He has
telephone numbers to contact to get this but states he has not gotten around to doing this. He states yesterday during the day he is unsure how much milk and water plus orange juice he drank however starting at 9 PM every single hour until 730 this
morning he was drinking 8+ ounces for total greater than 80 ounces in 10 hours of water due to feeling hot. He also states around 1 to 2 AM he got up and he felt off balance so he was using his walker. He states after drinking he had frequent
urination. He does not believe drinking liquids will harm him.
He also reports increased urination was concerned he was dehydrated due to cramping in his thighs and weakness. He denies fever, sore throat, blurred vision, headache, chest pain, palpitations, cough, shortness of breath, abdominal pain, nausea,
vomiting, diarrhea, urinary symptoms. On presentation the patient complained of dizziness and was found to be hyponatremic with a serum sodium level of 126 and nephrology was consulted
Past Medical History
CAD status post stent
Hypopituitaryism
Adrenal insufficiency
Gastric varices
HTN
HLD
Hypoglycemia with seizures
Hypothyroidism
Partial pancreas removal
COVID-19 infection November 2023 treated with Molnupiravir/Levaquin in hospital due to right sided infiltrate
Past Surgical History: Reports Other
Additional Past Surgical History:
Sinus surgery
Partial
pancreas removed this child
multiple endoscopies
Multiple colonoscopies
Cardiac stent 2019
Social History
Tobacco: Non-Smoker
Alcohol: None
Drug: None
Personal: Single
Living: Alone
Family History
Family History: Not Pertinent
Allergies / Home Medications
Allergy/AdvReac Type Severity Reaction Status Date / Time
acetaminophen (From Tylenol Allergy hallucinati Verified 05/26/25 10:47
PM) ons
amoxicillin (Amoxicillin) Allergy nightmares Verified 05/26/25 10:47
cephalexin monohydrate (From Allergy 'unspecified Verified 05/26/25 10:47
Keflex) side
effects'
cyclobenzaprine Allergy Unknown Verified 05/26/25 10:47
(Cyclobenzaprine)
diphenhydramine HCl (From Allergy hallucinati Verified 05/26/25 10:47
Tylenol PM) ons
erythromycin base Allergy 'does not Verified 05/26/25 10:47
(Erythromycin Base) mix with
tegretol'
metformin Allergy Unknown Verified 05/26/25 10:47
methylprednisolone Allergy dizziness? Verified 05/26/25 10:47
naproxen (From Aleve) Allergy Unknown Verified 05/26/25 10:47
sertraline Allergy Unknown Verified 05/26/25 10:47
Ageagdn-TSK-HnX Reductase Allergy Unknown Verified 05/26/25 10:47
Inhibitor (Xqovzzs-Eam-Wgd
Reductase Inhibitor)
Tetracyclines Allergy nightmares Verified 05/26/25 10:47
�Medication �Instructions �Recorded �Confirmed �Type
levothyroxine 200 mcg tablet 200 mcg PO DAILY Thyroid 02/19/15 05/26/25 History
amlodipine 10 mg tablet 10 mg PO HS Blood pressure 09/28/18 05/26/25 History
calcium 500 mg (as 1 tab PO BID Supplement 03/18/20 05/26/25 History
carbonate)-vitamin D3 5 mcg (200
unit) tablet (Oyster Shell
Calcium-Vitamin D3)
hydrocortisone 10 mg tablet 20 mg PO DAILY ADRENAL 03/18/20 05/26/25 History
INSUFFICIENCY
testosterone cypionate 200 mg/mL 0.25 ml IM Q2W LOW TESTOSTERONE 03/18/20 05/26/25 History
intramuscular oil
phenobarbital 64.8 mg tablet 129.6 mg PO HS Seizures 10/03/20 05/26/25 History
clopidogrel 75 mg tablet 75 mg PO DAILY #30 tabs 10/05/20 05/26/25 Rx
pantoprazole 40 mg tablet,delayed 40 mg PO DAILY Gastrointestinal 10/26/20 05/26/25 History
release issue
folic acid-vit B6-vit B12 2.5 1 tab PO DAILY@1200 Supplement 12/21/20 05/26/25 History
mg-25 mg-2 mg tablet (Folbic)
carbamazepine 100 mg 100 mg PO QPM Seizures 12/04/23 05/26/25 History
tablet,extended release,12 hr
(Tegretol XR)
carbamazepine 100 mg 200 mg PO DAILY Seizures 12/04/23 05/26/25 History
tablet,extended release,12 hr
(Tegretol XR)
carbamazepine 400 mg 400 mg PO BID@0800,1700 Seizures 12/04/23 05/26/25 History
tablet,extended release,12 hr
(Tegretol XR)
lisinopril 10 mg tablet 10 mg PO BID Blood Pressure 12/04/23 05/26/25 History
rosuvastatin 40 mg tablet 40 mg PO DAILY High Cholesterol 12/04/23 05/26/25 History
ezetimibe 10 mg tablet (Zetia) 10 mg PO DAILY 05/26/25 05/26/25 History
guar gum 0.5 packet PO DAILY 05/26/25 05/26/25 History
Review of Systems
-
History Source: Patient
All other systems: Negative unless noted
Constitutional: Other (malaise)
Respiratory: No Symptoms
Cardiac: No Symptoms
Abdomen/GI: No Symptoms
: No Symptoms
Musculoskeletal: Muscle Pain (thigh pains)
Neurological: Dizzy
Endocrine: Polyuria, Polydipsia and Temperature Intolerance
Physical Exam
Vital Signs
Vital Signs
Temp Pulse Resp BP Pulse Ox
98 F 63 13 168/75 100
05/26/25 12:04 05/26/25 15:02 05/26/25 15:02 05/26/25 15:02 05/26/25 13:09
Lab Results
05/26/25 11:56
05/26/25 11:56
WBC 8.3 10^3/uL (4.8-10.8) 05/26/25 11:56
RBC 3.91 10^6/uL (4.70-6.10) L 05/26/25 11:56
Hgb 13.1 g/dL (13.0-18.0) 05/26/25 11:56
Hct 36.0 % (39.0-52.0) L 05/26/25 11:56
Plt Count 203 10^3/uL (130-400) 05/26/25 11:56
Sodium 126 mmol/L (135-145) L 05/26/25 11:56
Potassium 4.6 mmol/L (3.5-5.1) 05/26/25 11:56
Chloride 90 mmol/L (98-107) L 05/26/25 11:56
Carbon Dioxide 29 mmol/L (22-30) 05/26/25 11:56
BUN 22 mg/dl (9-20) H 05/26/25 11:56
Creatinine 1.0 mg/dL (0.7-1.3) 05/26/25 11:56
eGFR > 60.00 05/26/25 11:56
Glucose 84 mg/dl (70-99) 05/26/25 11:56
Calcium 9.4 mg/dl (8.4-10.2) 05/26/25 11:56
Phosphorus 3.1 mg/dl (2.5-4.5) 05/26/25 11:56
Albumin 4.5 g/dl (3.5-5.0) 05/26/25 11:56
Physical Exam
General: Awake alert and orient x 3 no acute distress
HEENT: NormoCephalic, Anicteric, PERRLA, Spangle Conjunctivae, No Ptosis and Other (Dry oral mucosa)
Respiratory: Clear; No Wheezes, Rales or Rhonchi
Cardiac: S1/S2 and Regular Rhythm; No Murmur, Rub, Gallop or Peripheral Edema
Breast: Deferred by me
GI: Soft, Non Tender, Non Distended, Normal Bowel Sounds and No Hepatosplenomegaly
Rectal: Deferred by Provider
Genito-urinary: Deferred by me
Musculoskeletal: No Clubbing, No Cyanosis and No Edema
Skin: Warm and Dry; No Rash or Jaundice
Neuro: AO x 3, No Motor Deficits, Nonfocal/grossly intact, Cranial Nerves Intact and No Sensory Deficits; No Slurred Speech, Facial Droop, Tremors or Sedated
Psych: Calm, oriented to time and place
Vascular exam + radial pulses +1 anterior tibialis pulse
Data Reviewed
-
Radiology: Report Reviewed by me (Head CT to be reviewed)
Labs: Labs Reviewed by me (BMP CBC urine osmolality urine)
Old Records: Reviewed (Reviewed old records from date 05/10/2025 sodium 136)
Assessment/Plan
-
Impression:
Euvolemic hyponatremia
History of hypertension
History of seizure disorder
History of adrenal insufficiency/hypopituitary
History of coronary artery disease with previous stenting
History of hypothyroidism
Plan:
Hyponatremia
- Although patient may have more acute water intoxication from polydipsia, his elevated urine osmolality of greater than 500 also supports possible underlying SIADH possibly related to his antiseizure medications
- I would implement 1200 cc fluid restriction today
- Accurate I's and O's and daily weights
- I will withhold on hypertonic saline at this time
- Follow-up cortisol and TSH and free T4
- Check CPK levels as patient complains of cramping in the legs and is on statin and calcium channel david (UA is without blood howevers), noted proteinuria
Proteinuria:
- Will follow-up with kidney ultrasound and quantitate with urine protein to creatinine ratio
-GFR >60cc/minute
HTN:
Maintain lisinopril and amlodipine
--- NOTE | 2025-05-26 17:41 | PTCARENOTE ---
1944 Pt received from ED via stretcher.
[2025-05-26 17:48] VITALS: BP 172/72
[2025-05-26 17:55] VITALS: BMI 24.0
[2025-05-26] MEDS: TEGRETOL XR (EXTENDED RELEASE) 100 MG PO (18:16)
[2025-05-26] MEDS: TEGRETOL XR (EXTENDED RELEASE) 400 MG PO (18:16)
[2025-05-26] MEDS: LOVENOX 40 MG SC (18:19)
[2025-05-26 19:00] VITALS: BP 154/58
[2025-05-26] MEDS: OSCAL 500 + D 500 MG PO (20:16)
[2025-05-26] MEDS: ZESTRIL 10 MG PO (20:16)
[2025-05-26] MEDS: LUMINAL 129.6 MG PO (21:34)
[2025-05-26] MEDS: NORVASC PO (21:34)
--- NOTE | 2025-05-26 22:52 | PTCARENOTE ---
Lab informed this RN of a critical Tegretol level of 13.6. House provider was TT and notified. Orders put in for a repeat Tegretol draw for 0500.
[2025-05-26 23:05] VITALS: BP 154/70
[2025-05-27] VITALS (7 sets, daily range): BP systolic 124–168; BP diastolic 55–75; PULSE 58; O2SAT 99; BMI 23.5
[2025-05-27] MEDS: SYNTHROID 200 MCG PO (05:33)
[2025-05-27 07:43] LABS: Hematocrit 31.0 % (39.0-52.0); Hemoglobin 11.4 g/dL (13.0-18.0); Mean Corp Hgb Conc. 36.8 g/dL (33.0-37.0); Mean Corpuscular Volume 92.0 fL (80.0-94.0); Nucleated Red Blood Cells % 0 % (-); Platelet Count 188 10^3/uL (130-400); Red Cell Dist. Width 11.0 % (11.5-14.5)
[2025-05-27] MEDS: PROTONIX 40 MG PO (07:58)
[2025-05-27] MEDS: ZETIA 10 MG PO (07:59)
[2025-05-27] MEDS: HYDROCORTONE/CORTEF 20 MG PO (07:59)
[2025-05-27] MEDS: MIRALAX PO (07:59)
[2025-05-27] MEDS: OSCAL 500 + D 500 MG PO ×2 (07:59→21:24)
[2025-05-27] MEDS: CRESTOR 40 MG PO (07:59)
[2025-05-27] MEDS: PLAVIX 75 MG PO (07:59)
[2025-05-27] MEDS: ZESTRIL PO ×2 (08:03→21:11)
[2025-05-27 08:27] LABS: ALT (SGPT) 21 U/L (0-50); AST (SGOT) 29 U/L (17-59); Albumin 3.9 g/dl (3.5-5.0); Alkaline Phosphatase 89 U/L (38-126); Blood Urea Nitrogen 21 mg/dl (9-20); Calcium 8.6 mg/dl (8.4-10.2); Carbon Dioxide 26 mmol/L (22-30); Chloride 94 mmol/L (98-107); Estimated Creatinine Clearance 71 ml/min; Glucose 76 mg/dl (70-99); Magnesium 2.0 mg/dl (1.6-2.3); Potassium 4.3 mmol/L (3.5-5.1); Sodium 126 mmol/L (135-145); Total Protein 6.3 g/dl (6.3-8.2); eGFR > 60.00
[2025-05-27] MEDS: TEGRETOL XR (EXTENDED RELEASE) 400 MG PO ×2 (08:46→17:05)
[2025-05-27] MEDS: TEGRETOL XR (EXTENDED RELEASE) 200 MG PO (08:46)
--- NOTE | 2025-05-27 09:30 | PTOTSP ---
Speech Therapy Evaluation
Pt seen for clinical bedside swallow evaluation.�Spoke to RN who reported tolerance of solids, liquids, and medications. Pt reported choking during last night's dinner. Pt also reports in the past five months experiencing a sensation of food coming
back up. Reports of pain right below the neck with intermittent globus sensation. Based on pt report, suspect possible reflux or esophageal dysfunction.�
Pt accepted PO trials of thins via straw and regular solids. Oral phase grossly functional with adequate acceptance, mastication, bolus formation, ap transfer, and oral clearance. No overt s/sx of aspiration noted. Clear vocal quality and no breath
changes. Pt managed meds whole with thin liquids, which were administered by RN with no overt s/sx of aspiration. Pt is at a higher risk of aspiration given history of seizures and previous CVA (TIA). Speech to follow up to ensure tolerance of
current diet given aspiration precautions.�
Recommendations:
1. IDDSI 7 Regular, IDDSI 0 Thin liquids�
2. Meds as tolerated
3. Aspiration precautions, including small bites, slow rate, cyclic ingestion, multiple swallows, staying upright after meal�
4. PARTY CHIEF to follow. More likely GI vs swallow function
--- NOTE | 2025-05-27 10:24 | W.PN.NEPH.PH ---
Today's Communication / Plan
-
Check urine protein to creatinine ratio and kidney ultrasound re: proteinuria
Samsca 7.5 mg p.o. x 1 for persistent hyponatremia
Assessment/Plan
-
Impression:
Euvolemic hyponatremia
History of hypertension
History of seizure disorder
History of adrenal insufficiency/hypopituitary
History of coronary artery disease with previous stenting
History of hypothyroidism
Plan:
Hyponatremia
-Serum sodium remains unchanged at 126, given that urine osmolality is greater than 580 there appears to be a component of SIADH and 7.5 mg of Samsca will be provided
- Although patient may have more acute water intoxication from polydipsia, his elevated urine osmolality of greater than 500 also supports possible underlying SIADH possibly related to his antiseizure medications
- I would continue fluid restriction today
- Accurate I's and O's and daily weights
- I will withhold on hypertonic saline at this time
- Follow-up cortisol and TSH and free T4
Proteinuria:
- Will follow-up with kidney ultrasound and quantitate with urine protein to creatinine ratio
-GFR >60cc/minute
HTN:
Maintain lisinopril and amlodipine
-
-
Date of Service: May 27, 2025
CC / HPI / ROS
-
Chief Complaint:
Hyponatremia
History of Present Illness:
Serum sodium unchanged at 126 on fluid restriction
Hemodynamically stable on antihypertensive
Review of Systems:
Nonoliguric
No chest pain or shortness of breath no fevers
Labs
-
Labs:
WBC 6.8 10^3/uL (4.8-10.8) 05/27/25 06:42
RBC 3.37 10^6/uL (4.70-6.10) L 05/27/25 06:42
Hgb 11.4 g/dL (13.0-18.0) L 05/27/25 06:42
Hct 31.0 % (39.0-52.0) L 05/27/25 06:42
Plt Count 188 10^3/uL (130-400) 05/27/25 06:42
Sodium 126 mmol/L (135-145) L 05/27/25 06:42
Potassium 4.3 mmol/L (3.5-5.1) 05/27/25 06:42
Chloride 94 mmol/L (98-107) L 05/27/25 06:42
Carbon Dioxide 26 mmol/L (22-30) 05/27/25 06:42
BUN 21 mg/dl (9-20) H 05/27/25 06:42
Creatinine 1.0 mg/dL (0.7-1.3) 05/27/25 06:42
eGFR > 60.00 05/27/25 06:42
Glucose 76 mg/dl (70-99) 05/27/25 06:42
Calcium 8.6 mg/dl (8.4-10.2) 05/27/25 06:42
Phosphorus 3.1 mg/dl (2.5-4.5) 05/26/25 11:56
Albumin 3.9 g/dl (3.5-5.0) 05/27/25 06:42
Physical Exam
-
Vital Signs:
Vital Signs
Temp Pulse Resp BP Pulse Ox
97.9 F 53 16 161/69 99
05/27/25 07:00 05/27/25 07:00 05/27/25 07:00 05/27/25 07:00 05/27/25 07:00
Cardiovascular:: Regular rate and rhythm
Respiratory:: Bilateral: CTA
Lung Excursion:: Normal
Abdomen:: Nontender
Bowel Sounds:: Normal
Extremity Edema:: None: Bilateral:
Rios Catheter: No
[2025-05-27] MEDS: SAMSCA 7.5 MG PO (10:49)
[2025-05-27] MEDS: B COMPLEX w/VITAMIN C 1 CAPLET PO (11:23)
--- NOTE | 2025-05-27 13:01 | W.PN.HOSP.TC ---
Today's Communication/Plan
-
f/u Na level
Maintained on fluid restriction
Assessment / Plan
Assessment / Plan
1. Acute hyponatremia
-Presumed euvolemic with polydipsia related with IRAD component of ADH excess
-Patient is on Tegretol which can also aggravate hyponatremia
-Urine osmolality close to 500 with urine sodium 100+
-TSH suppressed at 0.02 although free T4 within normal range. With reported hypopituitarism this is in line with secondary hypothyroidism.
-Nephrology evaluated and patient got a dose of Samsca
2.Hypopituitarism
Secondary hypothyroidism
Additions disease
Hypogonadism
-TSH 0.02 and free to within normal limit. Maintained on home dose of levothyroxine
-Patient already on hydrocortisone 20 mg daily, random cortisol will not be helpful to check
-Gets 2 weekly intramuscular testosterone injection
3. History of seizure
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
-Continue carbamazepine, phenobarbital
-Tegretol level was marginally elevated to 13.6, upper cutoff is 12. Today on repeat check within normal limit of 11.3.
CAD status post stent
History of CVA
Essential hypertension
Hyperlipidemia
GERD
History of gastric varices
Sciatica
History of bowel obstruction
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
COVID-19 infection November 2023 treated with Molnupiravir/Levaquin in hospital due to right sided infiltrate
DVT prophylaxis - Subcu Lovenox
Full code
Total time spent ; 53 mins
Anticipated Discharge: Within 24 hours
Subjective/Interval History
-
Date of Service: May 27, 2025
Feeling lethargic
Reportedly having some diarrhea from the night
Denies abdominal pain/nausea/vomiting
Loss of appetite
Objective Data
-
Labs:
Laboratory Results
05/27/25
06:42
WBC 6.8
Hgb 11.4 L
Hct 31.0 L
Plt Count 188
Sodium 126 L
Potassium 4.3
Chloride 94 L
Carbon Dioxide 26
BUN 21 H
Creatinine 1.0
Glucose 76
Calcium 8.6
Total Bilirubin 0.6
AST 29
ALT 21
Alkaline Phosphatase 89
Vital Signs:
Vital Signs
Temp Pulse Resp BP Pulse Ox
98.8 F 57 18 159/73 100
05/27/25 11:00 05/27/25 11:00 05/27/25 11:00 05/27/25 11:00 05/27/25 11:00
I&O
05/26/25 05/27/25 05/28/25
06:59 06:59 06:59
Intake Total 480 / 480
Output Total 525 / 525
Balance -45 / -45
Review of Systems
-
Respiratory: Reports No Symptoms
Cardiac: Reports No Symptoms
Abdomen/GI: Reports No Symptoms
Physical Exam
-
General: Well Developed
HEENT: Normocephalic
Respiratory: Crackles
Cardiac: Regular Rhythm
GI: Soft
--- NOTE | 2025-05-27 15:03 | CM ---
Addendum entered by Anny Lin 05/27/25 15:08:
PCP: Jean Carlos Frazier
Pharmacy: [facility]
Original Note:
Patient seen at bedside
IA completed
hyponatremia
Maintained on fluid restriction
Lives at [facility] [place] alone, elevator access
PLOF: Independent
DME; steve Jarvis
PT eval rec Home Health
prefers [facility] - Notified [facility] liaison referral to be added
has had [facility] in past, [facility] in past
PLAN: Home with [facility] when stable
Brother to transport
--- NOTE | 2025-05-27 15:35 | VNURNOTE ---
Home Health Liaison met with patient at bedside to discuss [facility] nurse/therapy, visits, schedule and homebound status. Patient is agreeable and understands that visits at home will be 2-3 x per week to assess and teach medical management. Patient
is aware that [facility] will contact them for start of care in 1-2 days after discharge from . Provided contact number for [facility].
[facility] referral completed in [facility].
[2025-05-27] MEDS: LOVENOX 40 MG SC (17:48)
[2025-05-27] MEDS: TEGRETOL XR (EXTENDED RELEASE) 100 MG PO (17:49)
[2025-05-27] MEDS: LUMINAL 129.6 MG PO (21:32)
[2025-05-27] MEDS: NORVASC PO (21:33)
[2025-05-28] VITALS (8 sets, daily range): BP systolic 117–176; BP diastolic 58–76; PULSE 62–73; BMI 23.3
[2025-05-28] MEDS: SYNTHROID 200 MCG PO (05:54)
[2025-05-28 06:59] LABS: Hematocrit 32.9 % (39.0-52.0); Hemoglobin 11.9 g/dL (13.0-18.0); Mean Corp Hgb Conc. 36.2 g/dL (33.0-37.0); Mean Corpuscular Volume 91.4 fL (80.0-94.0); Nucleated Red Blood Cells % 0 % (-); Platelet Count 182 10^3/uL (130-400); Red Cell Dist. Width 11.2 % (11.5-14.5)
[2025-05-28 07:37] LABS: ALT (SGPT) 21 U/L (0-50); AST (SGOT) 28 U/L (17-59); Albumin 4.0 g/dl (3.5-5.0); Alkaline Phosphatase 94 U/L (38-126); Blood Urea Nitrogen 30 mg/dl (9-20); Calcium 8.8 mg/dl (8.4-10.2); Carbon Dioxide 29 mmol/L (22-30); Chloride 97 mmol/L (98-107); Estimated Creatinine Clearance 59 ml/min; Glucose 84 mg/dl (70-99); Potassium 4.4 mmol/L (3.5-5.1); Sodium 131 mmol/L (135-145); Total Protein 6.4 g/dl (6.3-8.2); eGFR > 60.00
[2025-05-28] MEDS: MIRALAX 17 GRAMS PO (08:29)
[2025-05-28] MEDS: CRESTOR 40 MG PO (08:29)
[2025-05-28] MEDS: HYDROCORTONE/CORTEF 20 MG PO (08:29)
[2025-05-28] MEDS: PROTONIX 40 MG PO (08:30)
[2025-05-28] MEDS: TEGRETOL XR (EXTENDED RELEASE) 200 MG PO (08:30)
[2025-05-28] MEDS: OSCAL 500 + D 500 MG PO ×2 (08:30→21:06)
[2025-05-28] MEDS: PLAVIX 75 MG PO (08:30)
[2025-05-28] MEDS: ZETIA 10 MG PO (08:32)
[2025-05-28] MEDS: ZESTRIL PO (08:32)
[2025-05-28] MEDS: TEGRETOL XR (EXTENDED RELEASE) 400 MG PO ×2 (09:45→17:05)
--- NOTE | 2025-05-28 12:08 | W.PN.NEPH.PH ---
Today's Communication / Plan
-
Okay for discharge from renal standpoint with fluid restriction and could follow-up with us outpatient
Assessment/Plan
-
Impression:
Euvolemic hyponatremia
History of hypertension
History of seizure disorder
History of adrenal insufficiency/hypopituitary
History of coronary artery disease with previous stenting
History of hypothyroidism
Plan:
Hyponatremia
- Although patient may have more acute water intoxication from polydipsia, his elevated urine osmolality of greater than 500 also supports possible underlying SIADH possibly related to his antiseizure medications
- I would continue fluid restriction
- Accurate I's and O's and daily weights
- I will withhold on hypertonic saline at this time
- Follow-up cortisol and TSH and free T4 =wnl
Sodium improved with Samsca
Would be okay for discharge from renal standpoint with continued fluid restriction as I spoke with the patient less than 50 ounce per day
-
-
Date of Service: May 28, 2025
CC / HPI / ROS
-
Chief Complaint:
Hyponatremia
History of Present Illness:
Serum sodium unchanged at 126 on fluid restriction
Hemodynamically stable on antihypertensive
Review of Systems:
Nonoliguric
No chest pain or shortness of breath no fevers
Labs
-
Labs:
WBC 6.2 10^3/uL (4.8-10.8) 05/28/25 06:38
RBC 3.60 10^6/uL (4.70-6.10) L 05/28/25 06:38
Hgb 11.9 g/dL (13.0-18.0) L 05/28/25 06:38
Hct 32.9 % (39.0-52.0) L 05/28/25 06:38
Plt Count 182 10^3/uL (130-400) 05/28/25 06:38
Sodium 131 mmol/L (135-145) L 05/28/25 06:38
Potassium 4.4 mmol/L (3.5-5.1) 05/28/25 06:38
Chloride 97 mmol/L (98-107) L 05/28/25 06:38
Carbon Dioxide 29 mmol/L (22-30) 05/28/25 06:38
BUN 30 mg/dl (9-20) H 05/28/25 06:38
Creatinine 1.2 mg/dL (0.7-1.3) 05/28/25 06:38
eGFR > 60.00 05/28/25 06:38
Glucose 84 mg/dl (70-99) 05/28/25 06:38
Calcium 8.8 mg/dl (8.4-10.2) 05/28/25 06:38
Phosphorus 3.1 mg/dl (2.5-4.5) 05/26/25 11:56
Albumin 4.0 g/dl (3.5-5.0) 05/28/25 06:38
Physical Exam
-
Vital Signs:
Vital Signs
Temp Pulse Resp BP Pulse Ox
98.2 F 61 16 156/63 99
05/28/25 11:26 05/28/25 11:26 05/28/25 11:26 05/28/25 11:26 05/28/25 11:26
Cardiovascular:: Regular rate and rhythm
Respiratory:: Bilateral: CTA
Lung Excursion:: Normal
Abdomen:: Nontender
Bowel Sounds:: Normal
Extremity Edema:: None: Bilateral:
Rios Catheter: No
[2025-05-28] MEDS: B COMPLEX w/VITAMIN C 1 CAPLET PO (12:15)
--- NOTE | 2025-05-28 13:41 | W.PN.HOSP.TC ---
Today's Communication/Plan
-
Possible discharge today if patient feeling better
Compression stockings
Hold lisinopril
Assessment / Plan
Assessment / Plan
1. Acute hyponatremia - improving
-Presumed euvolemic with polydipsia with added component of ADH excess
-Patient is on Tegretol which can also aggravate hyponatremia - check WNL
-Urine osmolality close to 500 with urine sodium 100+
-TSH suppressed at 0.02 although free T4 within normal range. With reported hypopituitarism this is in line with secondary hypothyroidism.
-Nephrology evaluated and patient got a dose of Samsca
2.Hypopituitarism
Secondary hypothyroidism
Additions disease
Hypogonadism
-TSH 0.02 and free to within normal limit. Maintained on home dose of levothyroxine
-Patient already on hydrocortisone 20 mg daily, random cortisol will not be helpful to check
-Gets 2 weekly intramuscular testosterone injection
3. History of seizure
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
-Continue carbamazepine, phenobarbital
-Tegretol level was marginally elevated to 13.6, upper cutoff is 12. Repeat check of 6.8
4. Dizziness
- Systolic blood pressure swings from 130 > 115 on standing up, patient complained of feeling dizzy
- provide compression stockings
- Hold lisinopril evening dose.
CAD status post stent
History of CVA
Essential hypertension
Hyperlipidemia
GERD
History of gastric varices
Sciatica
History of bowel obstruction
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
COVID-19 infection November 2023 treated with Molnupiravir/Levaquin in hospital due to right sided infiltrate
DVT prophylaxis - Subcu Lovenox
Full code
Anticipated Discharge: Within 24 hours
Subjective/Interval History
-
Date of Service: May 28, 2025
Complaining of feeling dizzy
No diarrhea reported
No other complaints reported
Objective Data
-
Labs:
Laboratory Results
05/28/25
06:38
WBC 6.2
Hgb 11.9 L
Hct 32.9 L
Plt Count 182
Sodium 131 L
Potassium 4.4
Chloride 97 L
Carbon Dioxide 29
BUN 30 H
Creatinine 1.2
Glucose 84
Calcium 8.8
Total Bilirubin 0.4
AST 28
ALT 21
Alkaline Phosphatase 94
Vital Signs:
Vital Signs
Temp Pulse Resp BP Pulse Ox
98.2 F 61 16 156/63 99
05/28/25 11:26 05/28/25 11:26 05/28/25 11:26 05/28/25 11:26 05/28/25 11:26
I&O
05/27/25 05/28/25 05/29/25
06:59 06:59 06:59
Intake Total 480 / 480 1340 / 1340
Output Total 525 / 525 775 / 775
Balance -45 / -45 565 / 565
Review of Systems
-
Respiratory: Reports No Symptoms
Cardiac: Reports No Symptoms
Abdomen/GI: Reports No Symptoms
Physical Exam
-
General: No Apparent Distress
HEENT: Negative Oxygen
Neuro: Awake, Alert, Oriented and No Motor Deficits
--- NOTE | 2025-05-28 16:38 | CM ---
Met with patient who advised that he feels weak and prefers to go to a SNF despite therapy recommendation for HH-PT. MD aware patient feels weak. Patient now uncertain if he wants to go home or go to SNF. He is worried about inconveniencing his
brother who is caring for an elder relative. CM and patient agreed to send referral to [facility] only. He may reconsider options. Remains ambivalent about home with HH vs SNF. Therapist notified.
[2025-05-28] MEDS: LOVENOX 40 MG SC (17:05)
[2025-05-28] MEDS: TEGRETOL XR (EXTENDED RELEASE) 100 MG PO (17:06)
[2025-05-28] MEDS: NORVASC 10 MG PO (21:06)
[2025-05-28] MEDS: LUMINAL 129.6 MG PO (21:06)
--- NOTE | 2025-05-28 22:48 | PTCARENOTE ---
PCT notified this RN of a high BP. L arm 177/74. R arm 176/74. House provider TT. Rechecked BP within 1 hr, 160/62.
[2025-05-29 03:00] VITALS: BP 150/62
[2025-05-29 04:34] VITALS: BMI 23.3
[2025-05-29] MEDS: SYNTHROID 200 MCG PO (05:43)
[2025-05-29 07:47] VITALS: BP 139/56
[2025-05-29] MEDS: ZETIA 10 MG PO (08:27)
[2025-05-29] MEDS: HYDROCORTONE/CORTEF 20 MG PO (08:27)
[2025-05-29] MEDS: TEGRETOL XR (EXTENDED RELEASE) 400 MG PO (08:27)
[2025-05-29] MEDS: MIRALAX 17 GRAMS PO (08:27)
[2025-05-29] MEDS: CRESTOR 40 MG PO (08:27)
[2025-05-29] MEDS: PROTONIX 40 MG PO (08:28)
[2025-05-29] MEDS: PLAVIX 75 MG PO (08:28)
[2025-05-29] MEDS: OSCAL 500 + D 500 MG PO (08:28)
[2025-05-29] MEDS: TEGRETOL XR (EXTENDED RELEASE) 200 MG PO (08:28)
[2025-05-29 08:30] LABS: ALT (SGPT) 26 U/L (0-50); AST (SGOT) 37 U/L (17-59); Albumin 4.0 g/dl (3.5-5.0); Alkaline Phosphatase 89 U/L (38-126); Blood Urea Nitrogen 30 mg/dl (9-20); Calcium 8.8 mg/dl (8.4-10.2); Carbon Dioxide 28 mmol/L (22-30); Chloride 97 mmol/L (98-107); Estimated Creatinine Clearance 65 ml/min; Glucose 87 mg/dl (70-99); Potassium 4.1 mmol/L (3.5-5.1); Sodium 132 mmol/L (135-145); Total Protein 6.6 g/dl (6.3-8.2); eGFR > 60.00
[2025-05-29 08:32] LABS: Hematocrit 32.9 % (39.0-52.0); Hemoglobin 12.1 g/dL (13.0-18.0); Mean Corp Hgb Conc. 36.8 g/dL (33.0-37.0); Mean Corpuscular Volume 91.4 fL (80.0-94.0); Nucleated Red Blood Cells % 0 % (-); Platelet Count 197 10^3/uL (130-400); Red Cell Dist. Width 11.0 % (11.5-14.5)
[2025-05-29 11:07] VITALS: BP 148/56
[2025-05-29] MEDS: B COMPLEX w/VITAMIN C 1 CAPLET PO (12:15)
--- NOTE | 2025-05-29 12:23 | CM ---
PATIENT SEEN AT BEDSIDE
IMM EXPLAINED & SIGNED
CM CONSULT COMPLETED-[facility] ACCEPTED
PLAN; HOME WITH [facility]
BROTHER TO TRANSPORT
--- NOTE | 2025-05-29 12:53 | W.PN.HOSP.TC ---
Addendum entered and electronically signed by Rob Beal MD 05/29/25 14:34:
RN reported that patient pre-discharge SBP in 160s .
Peripheral IV is removed,
will provide lisinopril 10mg x1 dose now and adjust discharge medication for patient to be resumed back on lisinopril 10mg bid starting from evening.
Original Note:
Today's Communication/Plan
-
d/c home
Assessment / Plan
Assessment / Plan
1. Acute hyponatremia - improving
-Presumed euvolemic with polydipsia with added component of ADH excess
-Patient is on Tegretol which can also aggravate hyponatremia - check WNL
-Urine osmolality close to 500 with urine sodium 100+
-TSH suppressed at 0.02 although free T4 within normal range. With reported hypopituitarism this is in line with secondary hypothyroidism.
-Nephrology evaluated and patient got a dose of Samsca
2.Hypopituitarism
Secondary hypothyroidism
Additions disease
Hypogonadism
-TSH 0.02 and free to within normal limit. Maintained on home dose of levothyroxine
-Patient already on hydrocortisone 20 mg daily, random cortisol will not be helpful to check
-Gets 2 weekly intramuscular testosterone injection
3. History of seizure
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
-Continue carbamazepine, phenobarbital
-Tegretol level was marginally elevated to 13.6, upper cutoff is 12. Repeat check of 6.8
4. Dizziness
Orthostatic hypotension
- Systolic blood pressure swings from 130 > 115 on standing up, patient complained of feeling dizzy
- Recommended patient to continue holding lisinopril for few days. Follow-up with PCP for reevaluation
- Compression stockings as tolerated
CAD status post stent
History of CVA
Essential hypertension
Hyperlipidemia
GERD
History of gastric varices
Sciatica
History of bowel obstruction
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
COVID-19 infection November 2023 treated with Molnupiravir/Levaquin in hospital due to right sided infiltrate
DVT prophylaxis - Subcu Lovenox
Full code
More than 30 minutes spent in discharge including
Final examination of the patient
Summarizing hospital stay
Instructions for continuing care to all relevant caregivers
Preparation of discharge records, prescriptions, and referral forms
Total time spent (in minutes): 39 mins
Anticipated Discharge: Today
Subjective/Interval History
-
Date of Service: May 29, 2025
Feeling bit better
Still have some episodic dizziness
No other issues reported
Objective Data
-
Labs:
Laboratory Results
05/29/25
07:17
WBC 6.8
Hgb 12.1 L
Hct 32.9 L
Plt Count 197
Sodium 132 L
Potassium 4.1
Chloride 97 L
Carbon Dioxide 28
BUN 30 H
Creatinine 1.1
Glucose 87
Calcium 8.8
Total Bilirubin 0.5
AST 37
ALT 26
Alkaline Phosphatase 89
Vital Signs:
Vital Signs
Temp Pulse Resp BP Pulse Ox
97.8 F 63 17 148/56 97
05/29/25 11:07 05/29/25 11:07 05/29/25 11:07 05/29/25 11:07 05/29/25 11:07
I&O
05/28/25 05/29/25 05/30/25
06:59 06:59 06:59
Intake Total 1340 / 1340 540 / 540
Output Total 775 / 775 200 / 200
Balance 565 / 565 340 / 340
Review of Systems
-
Respiratory: Reports No Symptoms
Cardiac: Reports No Symptoms
Abdomen/GI: Reports No Symptoms
Physical Exam
-
General: No Apparent Distress
HEENT: Negative Oxygen
Neuro: Awake, Alert, Oriented and No Motor Deficits
[2025-05-29 14:12] VITALS: BP 158/66
[2025-05-29 14:13] VITALS: BP 158/66; BP 196/86; BP 201/96; PULSE 67; PULSE 74; PULSE 76
[2025-05-29] MEDS: ZESTRIL 10 MG PO (15:12)
--- NOTE | 2025-05-30 16:19 | W.DCSUMMARY ---
Discharge Summary
Discharge Data
Date of Admission: 05/26/25
Date of Discharge: 05/29/25
-
Pending Results: No
Hospital Course
Discharging Physician : Dr Rob Beal
Disposition :Home
Primary care physician : Dr. Jean Carlos Frazier
Principal Discharge diagnosis :
Acute hyponatremia
Orthostatic hypotension
Chronic Discharge diagnosis :
Hypopituitarism
Secondary hypothyroidism
Sujit's disease
Hypogonadism
Coronary disease with history of stent
History of stroke
Essential hypertension
Hyperlipidemia
Gastroesophageal reflux disease
History of gastric varices
Sciatica
History of bowel obstruction
COVID-19 viral infection history
Hospital Course :
Patient is 65-year-old male with no motion past medical history came to ER with new onset of generalized weakness and lethargy. In ER patient was found to be hyponatremic with sodium down to 126. Patient had increased water intake at home.
Patient urine electrolytes and osmolality checks were suggestive of possible ADH excess component as well. Patient is on Tegretol which can cause hyponatremia although levels were within normal limit. Patient had dose of Samsca with which patient
sodium improved to 131. Patient was maintained on fluid restriction.
Patient was also having periodic dizziness and orthostatic vitals were positive. Initially patient was taken off of lisinopril although patient had rebound hypertension. Patient was put back on this medication. Patient recommended to wear
compression stockings. Physical therapy evaluated and patient was appropriate for home health level care.
Important imaging findings :
None
Procedure findings :
None
Discharge Plan
-
Patient Disposition: Home with Home Care
Discharge Diagnosis/Procedures: Hyponatremia, Orthostatic hypotension
Condition: Fair
Diet: Low Cholesterol and Restrict fluids to 48 oz
Activity: As tolerated
Driving Restrictions: No driving
Bathing Restrictions: OK to Shower
Referrals:
Jean Carlos Frazier MD [Family Provider, Internal Medicine] - in one week
Prescriptions:
Continued
levothyroxine 200 MCG tablet
200 mcg PO DAILY
amlodipine 10 MG tablet
10 mg PO HS
hydrocortisone 10 MG tablet
20 mg PO DAILY
testosterone cypionate 200 MG/ML oil
0.25 ml IM Q2W
calcium carbonate-vitamin D3 [Oyster Shell Calcium-Vit D3] 500 MG tablet
1 tab PO BID
phenobarbital 64.8 MG tablet
129.6 mg PO HS
clopidogrel 75 MG tablet
75 mg PO DAILY Qty: 30 5RF
pantoprazole 40 MG tablet,delayed release (DR/EC)
40 mg PO DAILY
Folbic 1 EACH tablet
1 tab PO DAILY@1200
carbamazepine [Tegretol XR] 100 mg tablet extended release 12 hr
200 mg PO DAILY
Rx Instructions:
*BRAND ONLY*
carbamazepine [Tegretol XR] 100 mg tablet extended release 12 hr
100 mg PO QPM
Rx Instructions:
*BRAND ONLY*
carbamazepine [Tegretol XR] 400 mg tablet extended release 12 hr
400 mg PO BID@0800,1700
Rx Instructions:
*BRAND ONLY*
lisinopril 10 mg tablet
10 mg PO BID
rosuvastatin 40 mg tablet
40 mg PO DAILY
guar gum Packet
0.5 packet PO DAILY
ezetimibe [Zetia] 10 mg Tablet
10 mg PO DAILY
Discharge Orders:
Discharge Patient (As Directed); Ordered 05/29/25
Ordered By: Rob Beal
Discharge Date and Time
Discharge Date/Time: 05/29/25 16:25
Print Language: GREEK
== END 2025-05-29 16:25 | disposition home health service (06) | DRG 641 ==
LOC: 3 WEST ACU 16:20
PROVIDERS: Clinical Nurse Specialist Family Health; ADMITTING PHYSICIAN Student in an Organized Health Care Education/Training Program; ATTENDING PHYSICIAN Hospitalist; CONSULT PHYSICIAN Specialist; EMERGENCY PHYSICIAN Student in an Organized Health Care Education/Training Program; FAMILY PHYSICIAN Internal Medicine
DX: E87.1 Hypo-osmolality and hyponatremia (principal); E23.0 Hypopituitarism; E27.1 Primary adrenocortical insufficiency; I95.1 Orthostatic hypotension; E03.9 Hypothyroidism, unspecified; Z86.73 Personal history of transient ischemic attack (TIA), and cerebral infarction without residual deficits; K21.9 Gastro-esophageal reflux disease without esophagitis; I86.4 Gastric varices; M54.30 Sciatica, unspecified side; Z86.16 Personal history of COVID-19; N18.9 Chronic kidney disease, unspecified; I12.9 Hypertensive chronic kidney disease with stage 1 through stage 4 chronic kidney disease, or unspecified chronic kidney disease; I25.10 Atherosclerotic heart disease of native coronary artery without angina pectoris; Z95.5 Presence of coronary angioplasty implant and graft; Z88.0 Allergy status to penicillin; Z88.8 Allergy status to other drugs, medicaments and biological substances; Z88.1 Allergy status to other antibiotic agents; Z79.890 Hormone replacement therapy; Z79.899 Other long term (current) drug therapy; E78.00 Pure hypercholesterolemia, unspecified; Z79.02 Long term (current) use of antithrombotics/antiplatelets
CPT/HCPCS: 70450; 80053; 80156; 81003; 81015; 82550; 82570; 83690; 83735; 83930; 83935; 84100; 84156; 84300; 84439; 84443; 85025; 92610; 96360; 97162; 99285

== ENCOUNTER 2025-07-04 12:07 | Emergency (ER) | payer MEDICARE, BC, SELFPAY ==
[2025-07-04 12:16] VITALS: BP 158/73
--- NOTE | 2025-07-04 13:46 | ED.SKININJ ---
HPI-Injury
General
Chief Complaint: Skin Surface Trauma
Source: patient
Exam Limitations: none
Time Seen by Provider: 07/04/25 13:42
History of Present Illness-Injury
Initial Injury comments:
65-year-old male presents with bleeding blood blister he has had for 2 days and has not been able to stop bleeding. He is on Plavix. No known injury. No other complaints
Past History
Past History
ED Past Medical History: CAD, CVA (TIA), HTN, Hypercholesterolemia, IA, Seizures (History of from Hypoglycemia), Hypothyroidism and Other (Sciatica, Cellulitis, Rectal bleeding, Bowel obstruction, Vertigo,)
ED Past Surgical History: Cardiac (Stents X 1) and Other (Partial removal of Pancreas)
Social History
Tobacco: 2nd hand smoke exposure
Alcohol: None
Personal: Single
Living: with family
Employment: Disabled
Family History
Family History: Other
Phy Exam
Physical Exam
Physical Exam:
General: Well-appearing male no acute respiratory distress
HEENT: Normal cephalic atraumatic
Skin: Right forearm area of prior bleeding was identified. This is underneath what appears to be a skin lesion measuring 3 mm in diameter. There is no current bleeding. Pressure around the area did not reproduce any bleeding. There appears to be
a scab over the area.
Course
Vital Signs
Initial and Last Documented VS:
Initial Vital Signs
Temp Pulse Resp BP Pulse Ox
98.7 F 63 17 158/73 99
07/04/25 12:16 07/04/25 12:16 07/04/25 12:16 07/04/25 12:16 07/04/25 12:16
Last Documented Vital Signs
Temp Pulse Resp BP Pulse Ox
98.7 F 63 17 158/73 99
07/04/25 12:16 07/04/25 12:16 07/04/25 12:16 07/04/25 12:16 07/04/25 12:16
MDM/Problems Addressed
Differential Diagnosis Includes:
Bleeding from right forearm now has stopped. A dressing was applied with an Andrew bandage for pressure. Wound care instructions were given. Stable for discharge
*Pulse Oximetry
SaO2: 99
Oxygen Mode of Delivery: Room air
Patient hypoxic: no
*Critical Care Note
Total Time (30-74mins, 75-104mins- exclusive of procedures): Not Applicable
ED Attending Note
-
Portions of this chart may have been created with voice recognition software.� Occasional wrong word or��sound alike� substitutions may have occurred due to the inherent limitations of voice recognition software.
Discharge Plan
Departure
Patient Disposition: Home (Routine Discharge)
Date of Disposition: 07/04/25
Time of Disposition: 13:48
Patient with high blood pressure during this ER visit?: No
Discharge Problem:
Bleeding
Instructions: Wound Care (DC)
Prescriptions:
No Action
levothyroxine 200 MCG tablet
200 mcg PO DAILY
amlodipine 10 MG tablet
10 mg PO HS
hydrocortisone 10 MG tablet
20 mg PO DAILY
testosterone cypionate 200 MG/ML oil
0.25 ml IM Q2W
calcium carbonate-vitamin D3 [Oyster Shell Calcium-Vit D3] 500 MG tablet
1 tab PO BID
phenobarbital 64.8 MG tablet
129.6 mg PO HS
clopidogrel 75 MG tablet
75 mg PO DAILY Qty: 30 5RF
pantoprazole 40 MG tablet,delayed release (DR/EC)
40 mg PO DAILY
Folbic 1 EACH tablet
1 tab PO DAILY@1200
carbamazepine [Tegretol XR] 100 mg tablet extended release 12 hr
200 mg PO DAILY
Rx Instructions:
*BRAND ONLY*
carbamazepine [Tegretol XR] 100 mg tablet extended release 12 hr
100 mg PO QPM
Rx Instructions:
*BRAND ONLY*
carbamazepine [Tegretol XR] 400 mg tablet extended release 12 hr
400 mg PO BID@0800,1700
Rx Instructions:
*BRAND ONLY*
lisinopril 10 mg tablet
10 mg PO BID
rosuvastatin 40 mg tablet
40 mg PO DAILY
guar gum Packet
0.5 packet PO DAILY
ezetimibe [Zetia] 10 mg Tablet
10 mg PO DAILY
Referrals:
Jean Carlos Frazier MD [Family Provider, Internal Medicine]
Activity Restrictions/Additional Instructions:
Keep dressing on today and change as needed. Return if worse otherwise
Interventions
Interventions:
*Risk Screen - Suicide Last Done: 07/04/25 12:15
*General Assessment Last Done: 07/04/25 12:15
*Neglect/Abuse Screening Last Done: 07/04/25 12:15
*ED- Fall Risk Assessment Last Done: 07/04/25 12:26
*ED COVID-19 Vaccine History Last Done: 07/04/25 12:15
ED-Skin Assessment Last Done: 07/04/25 12:26
Discharge Date and Time
Print Language: MAURITANIAN
--- NOTE | 2025-07-04 14:14 | EDRN ---
Reviewed discharge instructions with patient. Verbalized understanding. Ambulated with steady gait to lobby.
[2025-07-04 14:17] VITALS: BP 150/63
== END 2025-07-04 14:18 | disposition home or self-care (01) ==
LOC: EMR 12:07
PROVIDERS: EMERGENCY PHYSICIAN Emergency Medicine; FAMILY PHYSICIAN Internal Medicine
DX: R23.3 Spontaneous ecchymoses (principal); I25.10 Atherosclerotic heart disease of native coronary artery without angina pectoris; I10 Essential (primary) hypertension; E78.00 Pure hypercholesterolemia, unspecified; I25.2 Old myocardial infarction; E03.9 Hypothyroidism, unspecified; Z79.02 Long term (current) use of antithrombotics/antiplatelets; Z86.73 Personal history of transient ischemic attack (TIA), and cerebral infarction without residual deficits; Z95.5 Presence of coronary angioplasty implant and graft; Z77.22 Contact with and (suspected) exposure to environmental tobacco smoke (acute) (chronic)
CPT/HCPCS: 99282